=== PATIENT | female | born 1950 | race Caucasian/White ===

== ENCOUNTER 2021-10-03 19:49 | Inpatient (IN) | payer MEDICARE, MEDICAID, SELFPAY ==
[2021-10-03] VITALS (9 sets, daily range): BP systolic 136–168; BP diastolic 77–119; PULSE 90–106; RESP 18–22; TEMP 36.5–36.7; O2SAT 94–96; BMI 30.2
--- NOTE | 2021-10-03 19:54 | CTR_ITS ---
PROCEDURE INFORMATION: Exam: CT Head Without Contrast Exam date and time: 10/03/2021 8:38 PM Age: 71 years old Clinical indication: Injury or trauma; Blunt trauma (contusions or hematomas); Without loss of consciousness; Patient HX: HX of stroke C/O fall this am due to R sided weakness; Additional info: CVA TECHNIQUE: Imaging protocol: Computed tomography of the head without contrast. Radiation optimization: All CT scans at this facility use at least one of these dose optimization techniques: automated exposure control; mA and/or kV adjustment per patient size (includes targeted exams where dose is matched to clinical indication); or iterative reconstruction. COMPARISON: No relevant prior studies available. RADIATION DOSE METRICS: Total DLP (mGy-cm): 1640.32 FINDINGS: Brain: There are chronic lacunar infarcts in the klaus. Chronic appearing left RESTAURANT HOST distribution infarct. There is mild diffuse cerebral atrophy present, consistent with this patient's age. No evidence for large acute ischemic infarction. Please note acute ischemia can be occult by head CT. Cerebral ventricles: No ventriculomegaly. Paranasal sinuses: Visualized sinuses are unremarkable. No fluid levels. Mastoid air cells: Visualized mastoid air cells are well aerated. Vasculature: Calcified plaque is present within the carotid siphons. Bones/joints: Unremarkable. No acute fracture. Soft tissues: Unremarkable. CT/CT head wo con* [id number] IMPRESSION: There is a chronic appearing left RESTAURANT HOST distribution infarct.There are senescent changes of the brain as described above. No evidence for large acute ischemic infarction or acute intracranial injury.
--- NOTE | 2021-10-03 19:54 | XRR_ITS ---
PROCEDURE INFORMATION: Exam: XR Chest Exam date and time: 10/03/2021 7:29 PM Age: 71 years old Clinical indication: Injury or trauma; Fall; Other: Weakness; Blunt trauma (contusions or hematomas); Additional info: CVA. Weakness, fall due to RT leg and arm weakness and numbness TECHNIQUE: Imaging protocol: XR of the chest. Views: 1 view. COMPARISON: No relevant prior studies available. FINDINGS: Lungs: Unremarkable. No consolidation. Pleural spaces: Unremarkable. No pleural effusion. No pneumothorax. Heart/Mediastinum: Unremarkable. No cardiomegaly. Bones/joints: Unremarkable. XR/XR chest 1V portable [id number] IMPRESSION: No acute findings.
--- NOTE | 2021-10-03 19:55 | ECG_ITS ---
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 Measurements Intervals [place] Rate: 92 P: 59 MS: 162 QRS: 45 QRSD: 98 T: 39 QT: 376 QTc: 467 Interpretive Statements SINUS RHYTHM LEFT ATRIAL ENLARGEMENT [-0.15mV P-WAVE IN V1/V2] MODERATE ST DEPRESSION [0.05+ mV ST DEPRESSION] No previous ECG available for comparison Electronically Signed On 10-04-2021 17:26:33 CDT by Richard Shafer M.D. [id number]
--- NOTE | 2021-10-03 19:57 | W.ED.NEUROSD ---
HPI - Neuro Symptoms/Deficit General: Chief Complaint: Neuro Symptoms/Deficit Stated Complaint: fall Time Seen by Provider: 10/03/21 19:51 Source: patient and EMS Mode of arrival: EMS Limitations: no limitations History of Present Illness: 71-year-old female has a history of stroke last December. She states that she went to bed last night around 10 PM woke up this morning 6 AM and fell immediately because she had weakness on her right side. She states that she cannot move her right arm and is having difficulty lifting her right leg. States she had a very difficult time walking throughout the day and this concerned she may have had another stroke. She denies any pain anywhere denies any chest pain denies any dizziness denies any loss of vision. Associated symptoms: Deny chest pain, nausea or vomiting Review of Systems Const: Denies: fever(s), chills, body aches or change in appetite Eyes: Denies: blurry vision or eye discomfort ENMT: Denies: throat pain or dental pain Card: Denies: chest pain Resp: Denies: dyspnea GI: Denies: abdominal pain, nausea, vomiting or diarrhea : Denies: dysuria Musc: Denies: neck pain or back pain Skin/Breast: Denies: rash Neuro: Reports: weakness in extremities Psych: Denies: depression [place]/Lymph: Denies: easy bruising All/Imm: Denies: urticaria PFSH ED PFSH: Medical History (Updated 10/03/21 @ 21:36 by Waqar Lopez MD) CVA (cerebral vascular accident) Social History (Updated 10/03/21 @ 19:58 by Waqar Lopez MD) Substance/Drug Use: never NIH stroke score NIHSS: Level Of Consciousness - 1a: 0 Level Of Consciousness Questions - 1b: Both Correct Level Of Consciousness Commands - 1c: Both Correct Best Gaze - 2: Normal Visual Villar[place] - 3: No Visual Loss Facial Palsy - 4: Normal Motor Arm Right - 5: Effort Against [place] Motor Arm Left - 5: No Drift Motor Leg Right - 6: Effort Against [place] Motor Leg Left - 6: No Drift Limb Ataxia - 7: Absent Sensory - 8: Normal Best Language - 9: No Aphasia Dysarthia - 10: Normal Extinction And Inattention - 11: 0 Score: Total Score: 4 Physical Exam Const: COMMON NORMALS: no acute distress, patient oriented x3 and healthy appearing HENMT: COMMON NORMALS: normocephalic and atraumatic HEAD & SCALP: normocephalic and atraumatic Eye: COMMON NORMALS: Equal, round and reactive pupils present and EOMs intact bilaterally PUPIL: Yes Equal, round and reactive pupils present Neck/C-Spine: COMMON NORMALS: full ROM and supple Chest: COMMONS NORMALS: normal inspection of the chest and normal palpation of entire chest wall Resp: COMMON NORMALS: normal respiratory effort, No retractions, No use of accessory muscles and clear to auscultation bilaterally AUSCULTATION: clear to auscultation bilaterally Cardio: COMMON NORMALS: regular rate, regular rhythm and No murmurs present (Cardio) RATE: regular rate RHYTHM: regular rhythm GI: COMMON NORMALS: Normal to inspection, nondistended, normoactive bowel sounds present, Soft to palpation, non-tender and no masses PALPATION: Yes Soft to palpation Extremity: COMMON NORMALS: normal to inspection and full ROM Neuro: COMMON NORMALS: patient oriented x3 and moves all extremities OTHER: Weakness to right arm right leg Psych: COMMON NORMALS: mental status grossly normal, Normal thought process present and cooperative THOUGHT PROCESS: Normal thought process present Skin: COMMON NORMALS: no rashes or lesions noted and no wounds GENERAL SKIN EXAM: no rashes or lesions noted Course Vital Signs: Vital signs: Vital Signs Temperature 97.7 F 10/03/21 19:50 Pulse Rate 106 H 10/03/21 19:50 Respiratory Rate 20 H 10/03/21 19:50 Blood Pressure 168/100 10/03/21 19:50 Pulse Oximetry 94 10/03/21 19:50 MDM - Neuro Symptoms/Deficit Medical Decision Making Patient presents here with right arm weakness possible strokelike symptoms. [place] last known normal was roughly 24 hours ago she is not a TPA candidate CT showed no acute findings spoke to hospitalist will admit for observation at this time. Lab Data : 10/03/21 20:11 10/03/21 20:11 Radiology Impressions Chest X-Ray 10/03/21 19:54 IMPRESSION: No acute findings. 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 No evidence for large acute ischemic infarction or acute intracranial injury. Laboratory Results WBC 15.8 10^3/uL (4.0-10.0) H 10/03/21 20:11 RBC 6.72 10^6/uL (4.1-5.3) H 10/03/21 20:11 Hgb 18.7 g/dL (11.5-15.3) H 10/03/21 20:11 Hct 57.1 % (37.0-47.0) H 10/03/21 20:11 MCV 85.0 fl (81-99) 10/03/21 20:11 MCH 27.8 pg (28.0-34.0) L 10/03/21 20:11 MCHC 32.7 g/dL (30.0-36.0) 10/03/21 20:11 RDW 18.9 % (12.1-15.1) H 10/03/21 20:11 Plt Count 641 10^3/cmm (130-400) H 10/03/21 20:11 MPV 10.1 fL (7.4-10.4) 10/03/21 20:11 Neut % (Auto) 83.4 % 10/03/21 20:11 Lymph % (Auto) 9.4 % 10/03/21 20:11 [place] % (Auto) 4.4 % 10/03/21 20:11 Eos % (Auto) 1.2 % 10/03/21 20:11 Baso % (Auto) 0.8 % 10/03/21 20:11 Neut # (Auto) 13.20 10^3/uL (1.8-7.7) H 10/03/21 20:11 Lymph # (Auto) 1.5 10^3/uL (0.8-4.8) 10/03/21 20:11 [place] # (Auto) 0.7 10^3/uL (0.2-0.9) 10/03/21 20:11 Eos # (Auto) 0.2 10^3/uL (0.0-0.8) 10/03/21 20:11 Baso # (Auto) 0.1 10^3/uL (0.0-0.1) 10/03/21 20:11 Nucleated RBC % (auto) 0 % 10/03/21 20:11 Nucleated RBCs # 0.0 /100WBC 10/03/21 20:11 PT 13.70 SECONDS (12.1-14.9) 10/03/21 20:26 INR 1.01 (0.8-1.2) 10/03/21 20:26 Sodium 135 mmol/L (136-145) L 10/03/21 20:11 Potassium 4.1 mmol/L (3.5-5.1) 10/03/21 20:11 Chloride 99 mmol/L (98-107) 10/03/21 20:11 Carbon Dioxide 23 mmol/L (22-29) 10/03/21 20:11 Anion Gap 17.1 (5-19) 10/03/21 20:11 BUN 6 mg/dL (8-23) L 10/03/21 20:11 Creatinine 0.5 mg/dL (0.5-0.9) 10/03/21 20:11 GFR Calculation Not Reportable 10/03/21 20:11 Glucose 109 mg/dL (65-115) 10/03/21 20:11 POC Glucose 115 mg/dL (70-110) H 10/03/21 20:12 Calculated Osmolality 278 mOsm/kg (285-295) L 10/03/21 20:11 Calcium 9.5 mg/dL (8.5-10.5) 10/03/21 20:11 Total Bilirubin 0.5 mg/dL (0.15-1.2) 10/03/21 20:11 AST 25 U/L (0-32) 10/03/21 20:11 ALT 13 U/L (0-33) 10/03/21 20:11 Alkaline Phosphatase 125 IU/L (35-105) H 10/03/21 20:11 Total Protein 7.8 g/dL (6.6-8.7) 10/03/21 20:11 Albumin 4.4 g/dL (3.5-5.2) 10/03/21 20:11 Globulin 3.4 g/dL (1.3-4.6) 10/03/21 20:11 EKG Data EKG 1: I personally reviewed and interpreted this EKG as follows: EKG interpretation date: 10/03/21 EKG interpretation time: 19:58 Interpretation: Normal sinus rhythm heart rate [address] or T wave abnormalities QRS 98 QTC 46 Discharge Plan Discharge Patient Disposition: Admitted As Inpatient Clinical Impression: CVA (cerebral vascular accident) Coding Level of Care Code ED Pain Management Nurse Practitioner for Chg Fwd Exam Comprehensive
[2021-10-03 20:33] LABS: Basophils # 0.1 10^3/uL (0.0-0.1); Basophils % 0.8 %; Eosinophils # 0.2 10^3/uL (0.0-0.8); Eosinophils % 1.2 %; Hematocrit 57.1 % (37.0-47.0); Hemoglobin 18.7 g/dL (11.5-15.3); Lymphocytes # 1.5 10^3/uL (0.8-4.8); Lymphocytes % 9.4 %; Mean Corpuscular HGB Conc 32.7 g/dL (30.0-36.0); Mean Corpuscular Hemoglobin 27.8 pg (28.0-34.0); Mean Platelet Volume 10.1 fL (7.4-10.4); Monocytes # 0.7 10^3/uL (0.2-0.9); Monocytes % 4.4 %; Neutrophils % 83.4 %; Nucleated Red Blood Cells % 0 %; Platelet Count 641 10^3/cmm (130-400); Red Blood Count 6.72 10^6/uL (4.1-5.3); Red Cell Distribution Width 18.9 % (12.1-15.1); White Blood Count 15.8 10^3/uL (4.0-10.0)
[2021-10-03 20:43] LABS: Albumin Level 4.4 g/dL (3.5-5.2); Alkaline Phosphatase 125 IU/L (35-105); Blood Urea Nitrogen 6 mg/dL (8-23); Calcium 9.5 mg/dL (8.5-10.5); Carbon Dioxide 23 mmol/L (22-29); Chloride 99 mmol/L (98-107); Creatinine Clr Calc Pharmacy 57.0588; Globulin 3.4 g/dL (1.3-4.6); Glucose 109 mg/dL (65-115); Osmolality Calculated 278 mOsm/kg (285-295); Sodium 135 mmol/L (136-145); Total Bilirubin 0.5 mg/dL (0.15-1.2); Total Protein 7.8 g/dL (6.6-8.7)
[2021-10-03 20:49] LABS: INR 1.01 (0.8-1.2)
[2021-10-03 20:51] LABS: Alanine Aminotransferase 13 U/L (0-33); Anion Gap 17.1 (5-19); Aspartate Amino Transferase 25 U/L (0-32); Potassium 4.1 mmol/L (3.5-5.1)
[2021-10-03 20:52] LABS: Slide Review Slide Review Perform
[2021-10-03 20:58] LABS: Glucose Point of Care 115 mg/dL (70-110)
[2021-10-03 21:50] LABS: Add Urine Microscopic? NO; Charge for UA Resulting for Rev
[2021-10-03 21:54] LABS: Bilirubin Urine 1+ (Negative); Blood Urine Neg (Negative); Glucose Urine UA Norm (Normal); Ketones Urine Negative (Negative); Leukocyte Esterase Urine Negative (Negative); Nitrate Urine Negative (Negative); Protein Urine Neg (Negative); Specific Gravity, Urine 1.005 (1.005-1.030); Urine Appearance Clear (CLEAR); Urine Color Yellow (Yellow); Urobilinogen Urine Norm (Negative); pH Urine 7 (5-7)
--- NOTE | 2021-10-03 22:03 | PC.NURSE ---
Pt refused ASA stating she cannot take ASA. Dr Lopez updated
--- NOTE | 2021-10-03 23:11 | P.HP_ITS ---
Providers/Chief Complaint Admitting Physician: Hipolito Peres Chief Complaint: fall History of Present Illness 71-year-old lady who reports she has had a prior stroke in December for which she was assessed in [place] presented to ER with initial reports that she was having weakness in the right side resulting in a fall difficulty walking, with concern that she had another stroke she came to ER. When attempting to confirm this history, she is going back and forth somewhat, she appears to have at least moderate expressive aphasia, and asking the same question several times sometimes feels different answers. In ER also was reported to have somewhat inconsistent symptoms, with right-sided weakness, although did okay with getting up and back from the commode. She seems to state that she was calling her friend Jenae who then arranged for her to go to the hospital. She states yesterday she was moving some heavy furniture around. She denies any fall or injury. She feels that she already had some difficulty walking yesterday. She states that she uses rolling walker normally. She cannot definitively express what symptoms she may have had after the prior stroke in December. She states she does not take aspirin, she states that she cannot take large doses of aspirin, that she could take small dose, 81 mg. In ER she is also noted to have leukocytosis, tachycardia 102-106, currently down to 93. She is afebrile. Noted elevation of all 3 cell lines. Chest x-ray without acute findings. UA obtained, 1+ bilirubin, otherwise WNL. Head CT with chronic appearing left FABRIC AND ACCESSORIES ESTIMATOR distribution infarct, senescent changes. Review of Systems Const: Denies: fever(s), chills, body aches or malaise Eyes: Denies: change in vision or eye redness ENMT: Denies: throat pain, oral sores or ear or mastoid pain Card: Denies: chest pain, edema, pre-syncope or dyspnea on exertion Resp: Denies: dyspnea, productive cough, change in phlegm color or hemoptysis GI: Denies: abdominal pain, nausea, vomiting, diarrhea, constipation, hematochezia or melena : Denies: flank pain, urinary frequency or hematuria Musc: Denies: back pain, joint swelling or joint redness Skin/Breast: Denies: rash, sores or new lesions Neuro: Reports: weakness in extremities and difficulty communicating thoughts; Denies: headache(s), numbness in extremities, dizziness, confusion or seizure- like activity Endo: Denies: polyuria or polydipsia Cayetano/Lymph: Denies: easy bleeding or purpura All/Imm: Denies: urticaria, throat swelling or tongue swelling Medications/Allergies Allergies Allergy/AdvReac Type Severity Reaction Status Date / Time aspirin AdvReac Unknown Unknown Unverified 10/03/21 23:02 PFSH Acute PFSH: Medical History CVA (cerebral vascular accident) HTN (hypertension) Surgical History No pertinent past surgical history Family History Other No significant family history Social History Smoking and tobacco status: never smoked Alcohol intake: never Substance/Drug Use: never Lives independently: Yes Vitals/I&O/Wt Last Vital Signs Temp 97.7 F 10/03/21 19:50 Pulse 93 10/03/21 22:21 Resp 18 10/03/21 22:21 BP 150/83 10/03/21 22:21 Pulse Ox 96 10/03/21 22:21 Weight last 48 hrs Weight 72.575 kg Physical Exam Const: COMMON NORMALS: no acute distress and patient oriented x3 GENERAL APPEARANCE: disheveled HENMT: COMMON NORMALS: oropharynx normal Neck/C-Spine: COMMON NORMALS: no JVD Resp: COMMON NORMALS: normal respiratory effort and clear to auscultation bilaterally AUSCULTATION: clear to auscultation bilaterally OTHER: Mild upper respiratory wheeze/vocal cord dysfunction Cardio: COMMON NORMALS: no JVD, regular rhythm, S1 normal heart sound present, S2 normal heart sound present and No murmurs present (Cardio) RHYTHM: regular rhythm HEART SOUNDS: S1 normal heart sound present and S2 normal heart sound present GI: COMMON NORMALS: Normal to inspection, nondistended, normoactive bowel sounds present, Soft to palpation and non-tender PALPATION: Yes Soft to palpation Extremity: COMMON NORMALS: no joint enlargement and no pedal edema Neuro: COMMON NORMALS: patient oriented x3 and moves all extremities MENINGEAL SIGNS: Yes no meningeal signs COORDINATION/BALANCE: other (Cannot lift R arm for FNF, or R leg high enough for HTS) SPEECH: abnormal speech and receptive aphasia SENSORY EXAM: Yes Normal double simultaneous stimulation for sensation MOTOR EXAM: Abnormal motor strength present (2/5 R upper and lower. ) PLANTAR REFLEX: equivocal: bilateral OTHER: R side facial droop. Follows commands well. No difficulty tracking. Visual díaz full to confrontation. Skin: COMMON NORMALS: no rashes or lesions noted GENERAL SKIN EXAM: no rashes or lesions noted Data : 10/03/21 20:11 10/03/21 20:11 A&P Assessment and plan (1) CVA (cerebral vascular accident): Difficult to tell which symptoms are new, which are old. Reports she previously had a stroke in December and was seen for it in [place]. Denies needing TPA at that time. Sounds like she has not been taking aspirin or Plavix. With at least moderate aphasia currently, she is difficult time being able to provide history. Unclear what medications she takes. Initial reports cannot take aspirin, although then she does state that she may tolerate aspirin 81 mg. Treatment aphasia seems to be new as she seems to be surprised at difficulty expressing thoughts. Does seem like weakness is worse as well as she reported previously walking with a rolling walker. Appears likely to have had recurrence of CVA, possibly progression of prior CVA. Noted chronic FABRIC AND ACCESSORIES ESTIMATOR CVA on head CT. As she did not feel safe with aspirin, overall acid changer to Plavix. Statin. Permissive hypertension for now. Requesting MRI, MRA brain. Additional work-up with carotid Doppler, echocardiogram. A1c, lipid profile. ST, PT, OT. Less likely with leukocytosis, tachycardia, aphasia, possible herpes encephalitis. No sign of bacterial meningitis. Acyclovir for now. Consider lumbar puncture when IR or neurology is back. Status: Acute (2) Leukocytosis: Unclear cause. Again for now empirically on acyclovir as above. Otherwise no suggestion of pneumonia. No significant UTI. Denies any GI symptoms. No integumentary symptoms. No obvious source of infection. Monitor for changes in condition. Denies symptoms respiration. ST assessment. Status: Acute Plan Mild upper respiratory wheeze/vocal cord dysfunction: She states she may have history of asthma, but unclear that she uses any medications for it. Wheezing appears upper respiratory. Monitor for changes in symptoms. Consider referral for PFT assessment if has not had one. Attestations Medical Necessity Statement*: Admission of over 2 midnights we will continue aggressive management of second CVA. Coding Level of Care Code Acute Energy Management Specialist for Delia Goodson Diagnoses CVA (cerebral vascular accident) I63.9 Leukocytosis D72.829
[2021-10-03] MEDS: clopidogrel 75 mg Tablet PO (23:33)
[2021-10-03] MEDS: atorvastatin 40 mg Tablet PO (23:33)
[2021-10-03] MEDS: heparin 5,000 unit/mL INJ 1 mL 5000 UNIT SUBCUT (23:34)
[2021-10-03] MEDS: lactated ringers 1,000 ML 75 ML IV (23:34)
[2021-10-04] VITALS (19 sets, daily range): BP systolic 109–153; BP diastolic 49–95; PULSE 71–99; RESP 16–18; TEMP 36.4–36.8; O2SAT 91–96
[2021-10-04] MEDS: acyclovir 700 MG in sodium chloride 0.9% (100 ml) 100 ML 114 MG IV (01:58)
[2021-10-04 06:21] LABS: Basophils # 0.1 10^3/uL (0.0-0.1); Basophils % 0.5 %; Eosinophils # 0.3 10^3/uL (0.0-0.8); Eosinophils % 2.3 %; Hematocrit 51.5 % (37.0-47.0); Hemoglobin 16.6 g/dL (11.5-15.3); Lymphocytes # 1.2 10^3/uL (0.8-4.8); Mean Corpuscular HGB Conc 32.2 g/dL (30.0-36.0); Mean Corpuscular Hemoglobin 27.6 pg (28.0-34.0); Mean Corpuscular Volume 85.7 fl (81-99); Mean Platelet Volume 10.4 fL (7.4-10.4); Monocytes # 0.7 10^3/uL (0.2-0.9); Monocytes % 4.8 %; Neutrophils # 12.51 10^3/uL (1.8-7.7); Neutrophils % 83.7 %; Nucleated Red Blood Cells % 0 %; Platelet Count 655 10^3/cmm (130-400); Red Blood Count 6.01 10^6/uL (4.1-5.3); Red Cell Distribution Width 18.7 % (12.1-15.1); White Blood Count 14.9 10^3/uL (4.0-10.0)
[2021-10-04 06:31] LABS: Alanine Aminotransferase 10 U/L (0-33); Albumin Level 3.8 g/dL (3.5-5.2); Alkaline Phosphatase 106 IU/L (35-105); Aspartate Amino Transferase 18 U/L (0-32); Blood Urea Nitrogen 5 mg/dL (8-23); Calcium 8.9 mg/dL (8.5-10.5); Carbon Dioxide 23 mmol/L (22-29); Chloride 102 mmol/L (98-107); Chol HDL Ratio 2.43 mg/dL (0.0-4.40); Cholesterol 131 mg/dL (0-200); Creatinine Clr Calc Pharmacy 57.0588; Globulin 2.7 g/dL (1.3-4.6); Glucose 107 mg/dL (65-115); HDL Cholesterol 54 mg/dL (60-100); LDL Cholesterol Calculated 64 mg/dL (50-129); LDL HDL Ratio 1.19 RATIO (0.00-3.22); Osmolality Calculated 274 mOsm/kg (285-295); Sodium 133 mmol/L (136-145); Total Bilirubin 0.4 mg/dL (0.15-1.2); Total Protein 6.5 g/dL (6.6-8.7); Triglycerides 63 mg/dL (0-150)
[2021-10-04] MEDS: heparin 5,000 unit/mL INJ 1 mL 5000 UNIT SUBCUT ×3 (06:40→23:05)
[2021-10-04 06:46] LABS: Estmated Average Glucose 114; Hemoglobin A1C 5.6 % (4.0-6.0)
[2021-10-04 06:48] LABS: Anion Gap 12.4 (5-19); Potassium 4.4 mmol/L (3.5-5.1)
[2021-10-04] MEDS: clopidogrel 75 mg Tablet PO (08:32)
[2021-10-04] MEDS: acyclovir 700 MG in sodium chloride 0.9% (100 ml) 100 ML 100 MG IV ×2 (09:34→18:15)
--- NOTE | 2021-10-04 14:07 | P.PN_ITS ---
Subjective Subjective: Doing better. Does not feel as weak on rt side. 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 Possibly from stress vs CVA Status: Acute (2) CVA (cerebral vascular accident): W/ c/o rt sided weakness and difficulty in walking CVA will need to be r/o still ECHO was basically normal Status: Acute (3) Hypertension after donor nephrectomy requiring medication: stable Status: Acute Plan MRI Brain pending D/C home if OK On Asa DVT Prophylaxis Lovemox Attestations Medical Necessity Statement*: Pt w/ h/o HTN, CVA coming w/ new rt sided wea kness and difficulty in walking CVA is being r/o. Will need continued hospitalization for further w/u Time Spent in Patient Care: 40 min Coding Level of Care Code Acute Wellness Manager for Chg Fwd Diagnoses Leukocytosis D72.829 CVA (cerebral vascular accident) I63.9 Hypertension after donor nephrectomy requiring medication I97.3; Z90.5
[2021-10-04] MEDS: atorvastatin 40 mg Tablet PO (21:14)
--- NOTE | 2021-10-04 23:13 | USCV_ITS ---
Carol Dolan Age: 71 Gender: F : 1950 Exam Date: 10/04/2021 06:40 Ordering Phys: Hipolito Peres MD Technologist: Isela Fermin Exam Location: [facility] – [place] Indication: CVA BP: 135 / 82 HR: 84 Rhythm: Sinus Technical Quality: Adequate MEASUREMENTS (Male / Female) Normal Values 2D ECHO LV Diastolic Diameter PLAX 4.6 cm 4.2 - 5.9 / 3.9 - 5.3 cm LV Systolic Diameter PLAX 3.1 cm LV Chamber Size 3.5 cm IVS Diastolic Thickness 1.1 cm 0.6 - 1.0 / 0.6 - 0.9 cm IVS Systolic Thickness 1.6 cm LVPW Diastolic Thickness 1.2 cm 0.6 - 1.0 / 0.6 - 0.9 cm LVPW Systolic Thickness 1.9 cm RV Chamber Size 2.8 cm LVOT Diameter 2.1 cm LV Ejection Fraction 2D Teich 60.4 % LV Ejection Fraction MOD 2C 65.7 % LV Ejection Fraction 2C AL 65.3 % LA Diameter 3.7 cm LA Width 3.4 cm LA Height 5.0 cm RA Width 4.1 cm RA Height 4.1 cm Aorta at Sinotubular Diameter 2.8 cm M-MODE Aortic Annulus Diameter 3.0 cm LA Ao Ratio MM 1.4 MV E Point Septal Separation 0.5 cm DOPPLER AV Peak Velocity 132.0 cm/s LVOT Peak Velocity 84.0 cm/s AV Area Cont Eq vti 2.1 cm squared AV Area Cont Eq pk 2.1 cm squared MV Area PHT 3.3 cm squared MV E' Velocity 45.5 cm/s Mitral E to MV E' Ratio 7.2 Mitral E to LV E' Lateral Ratio 6.5 Mitral E to LV E' Septal Ratio 8.0 TR Peak Velocity 157.8 cm/s TR Peak Gradient 10.0 mmHg TR Mean Velocity 103.8 cm/s TR Mean Gradient 5.2 mmHg TR Velocity Time Integral 38.5 cm TV Peak E Velocity 71.0 cm/s Right Atrial Pressure 3.0 mmHg Pulmonary Artery Systolic Pressu 13.0 mmHg PV Peak Velocity 58.0 cm/s RV Acceleration Time 0.1 s RV Ejection Time 0.3 s RV AcT/ET 0.4 FINDINGS Left Ventricle Normal left ventricular size and systolic function, EF 59 %. No regional wall motion abnormalities. Right Ventricle The right ventricle is normal in size and function. Right Atrium The right atrium is normal in size. Left Atrium Mildly increased left atrial size. Mitral Valve Thickened mitral valve. Mild mitral annular calcification. Aortic Valve No gross abnormalities noted Tricuspid Valve Trace to mild tricuspid valve regurgitation. Pulmonic Valve Pulmonic valve not well visualized. Pericardium Normal pericardium without effusion. Aorta Normal ascending aorta dimension. CONCLUSIONS Normal left ventricular size and systolic function, EF 59 %. No regional wall motion abnormalities. Thickened mitral valve. Mild mitral annular calcification. Mildly increased left atrial size. Trace to mild tricuspid valve regurgitation. Estimated pulmonary artery pressure is within normal limits There is no pericardial effusion. There are no intracardiac masses. No previous study is available for comparison. Dr Richard Shafer MD [facility] (Electronically Signed) Final Date: 04 October 2021 10:42 S
--- NOTE | 2021-10-04 23:13 | USCV_ITS ---
Carol Dolan Age: 71 Gender: F : 1950 Exam Date: 10/04/2021 06:56 Ordering Phys: Hipolito Peres MD Technologist: Isela Fermin Exam Location: [facility] – [place] Indication: CVA Risk Factors: Smoker Previous Vascular Surgery: NONE Right Brachial BP: / Left Brachial BP: / Right Left Velocity (cm/s) Spectral Plaque Velocity (cm/s) Spectral Plaque Syst/Diast Broadening Syst/Diast Broadening 86.00/ 20.35 Prox CCA 119.60/ 38.10 79.40/ 23.20 Mid CCA 120.90/ 18.40 108.10/23.20 Hetro Distal CCA 109.10/ 27.60 Hetro 52.80/ 12.40 Prox ICA 82.00 / 29.90 57.50/ 10.90 Mid ICA 90.60 / 31.60 55.90/ 17.90 Distal ICA 106.00/ 43.60 105.80 ECA 233.20 0.72 ICA/CCA 0.88 Antegrade Vertebral Antegrade 40.40/ 10.10 cm/s 45.30/ 14.50 cm/s Bi Subclavian Tri 139.3 161.6 0 0 FINDINGS Minimal plaques at the right bifurcation and proximal internal carotid artery Mild to moderate heterogeneous plaques at the left bifurcation and proximal internal carotid artery Antegrade flow in the vertebral arteries bilaterally Elevated velocity in the left external carotid artery Normal Doppler flow velocities in the vertebral and subclavian arteries bilaterally CONCLUSIONS Mild to moderate heterogeneous plaques at the left bifurcation and proximal internal carotid artery, suggesting less than 50% stenosis. Minimal plaques at the right bifurcation and proximal internal carotid artery Elevated velocity in the left external carotid artery suggestive of hemodynamically significant stenosis. No significant stenosis in the vertebral and subclavian arteries, based on the above findings No previous studies are available for comparison. Dr Richard Shafer MD [facility] (Electronically Signed) Final Date: 04 October 2021 17:06 S
[2021-10-05] VITALS (7 sets, daily range): BP systolic 118–158; BP diastolic 71–85; PULSE 86–93; RESP 16–18; TEMP 36.3–36.8; O2SAT 93–94
[2021-10-05] MEDS: acyclovir 700 MG in sodium chloride 0.9% (100 ml) 100 ML 114 MG IV (01:40)
[2021-10-05 05:07] LABS: Basophils # 0.1 10^3/uL (0.0-0.1); Basophils % 0.6 %; Eosinophils # 0.6 10^3/uL (0.0-0.8); Eosinophils % 4.7 %; Hematocrit 51.1 % (37.0-47.0); Hemoglobin 16.3 g/dL (11.5-15.3); Lymphocytes # 1.7 10^3/uL (0.8-4.8); Lymphocytes % 12.2 %; Mean Corpuscular HGB Conc 31.9 g/dL (30.0-36.0); Mean Corpuscular Hemoglobin 27.9 pg (28.0-34.0); Mean Corpuscular Volume 87.5 fl (81-99); Mean Platelet Volume 9.9 fL (7.4-10.4); Monocytes # 0.8 10^3/uL (0.2-0.9); Monocytes % 5.7 %; Neutrophils # 10.32 10^3/uL (1.8-7.7); Neutrophils % 76.1 %; Nucleated Red Blood Cells % 0 %; Platelet Count 546 10^3/cmm (130-400); Red Blood Count 5.84 10^6/uL (4.1-5.3); Red Cell Distribution Width 18.8 % (12.1-15.1); White Blood Count 13.6 10^3/uL (4.0-10.0)
[2021-10-05 05:27] LABS: Alanine Aminotransferase 10 U/L (0-33); Albumin Level 3.5 g/dL (3.5-5.2); Alkaline Phosphatase 83 IU/L (35-105); Anion Gap 10.7 (5-19); Aspartate Amino Transferase 13 U/L (0-32); Blood Urea Nitrogen 6 mg/dL (8-23); Calcium 8.8 mg/dL (8.5-10.5); Carbon Dioxide 21 mmol/L (22-29); Chloride 103 mmol/L (98-107); Creatinine Clr Calc Pharmacy 57.0588; Globulin 2.3 g/dL (1.3-4.6); Glucose 96 mg/dL (65-115); Osmolality Calculated 269 mOsm/kg (285-295); Potassium 3.7 mmol/L (3.5-5.1); Sodium 131 mmol/L (136-145); Total Bilirubin 0.4 mg/dL (0.15-1.2); Total Protein 5.8 g/dL (6.6-8.7)
[2021-10-05] MEDS: heparin 5,000 unit/mL INJ 1 mL 5000 UNIT SUBCUT (06:31)
--- NOTE | 2021-10-05 08:52 | PC.NURSE ---
Dr. Ashley came in room and stated not to give Acylovir
[2021-10-05] MEDS: clopidogrel 75 mg Tablet PO (08:53)
--- NOTE | 2021-10-05 10:13 | PM.DCS ---
Discharge Providers Date of Admission: 10/03/21 21:34 Date of Discharge: October 05, 2021 Attending Provider at Admission: Hipolito Peres Attending Provider at Discharge: Ashleigh Ashley MD Diagnoses at Discharge Discharge Diagnosis (1) Leukocytosis: Status: Acute (2) CVA (cerebral vascular accident): Status: Acute (3) Hypertension after donor nephrectomy requiring medication: Status: Acute Reason for Visit Reason for Visit: fall Hospital Course Hospital Course This is admitting note by Dr. Peres 71-year-old lady who reports she has had a prior stroke in December for which she was assessed in [place] presented to ER with initial reports that she was having weakness in the right side resulting in a fall difficulty walking, with concern that she had another stroke she came to ER.? When attempting to confirm this history, she is going back and forth somewhat, she appears to have at least moderate expressive aphasia, and asking the same question several times sometimes feels different answers.? In ER also was reported to have somewhat inconsistent symptoms, with right-sided weakness, although did okay with getting up and back from the commode.? She seems to state that she was calling her friend Jenae who then arranged for her to go to the hospital.? She states yesterday she was moving some heavy furniture around.? She denies any fall or injury.? She feels that she already had some difficulty walking yesterday.? She states that she uses rolling walker normally.? She cannot definitively express what symptoms she may have had after the prior stroke in December.? She states she does not take aspirin, she states that she cannot take large doses of aspirin, that she could take small dose, 81 mg. In ER she is also noted to have leukocytosis, tachycardia 102-106, currently down to 93.? She is afebrile.? Noted elevation of all 3 cell lines. Chest x-ray without acute findings.? UA obtained, 1+ bilirubin, otherwise WNL.? Head CT with chronic appearing left EDUCATIONAL ADVISOR distribution infarct, senescent changes. Hospital course Patient was admitted for management evaluation of right-sided weakness/TIA, her echo showed EF 59% without any wall motion abnormality, her rhythm remains sinus, no active chest pain, patient was able to ambulate without any assistance, she does have a walker at home, MRI was ordered however patient is eager to go home, I will give her a prescription to get MRI done outpatient, at the time of my evaluation NIH is 0 she is awake and alert, normal hemodynamics Other than hypertension, CBC does show leukocytosis, thrombocytosis and polycythemia, given referral to see Dr. John. On my clinical evaluation she did look dehydrated. Hemoglobin A1c 5.6, carotid Doppler without significant stenosis less than 50% stenosis detected. I have discharged her on atorvastatin, aspirin, Plavix and to antihypertensive regimen amlodipine and lisinopril Physical Exam Narrative: Patient was sitting in a chair NIH 0 Awake and alert Nonfocal neuro exam S1, S2 Looks slightly dehydrated Abdomen is soft Nonfocal neuro exam EOMI, PERRLA Nurse at the bedside Saturating well on room air Discharge Data Studies Completed and Pending Completed Studies During Hospitalization Category Date Time Status CT head wo con* [id number] Urgent Cat Scan 10/03/21 19:54 Completed XR chest 1V portable [id number] Urgent Exams 10/03/21 19:54 Completed CV carotid duplex BI* [id number] Routine Ultrasound 10/04/21 23:13 Completed CV. echo complete* [id number] Routine Ultrasound 10/04/21 23:13 Completed Pending at discharge Category Date Time Status Blood Culture Stat Lab 10/03/21 23:41 Results Complete Blood Count w/Auto AM LABS Lab 10/06/21 04:00 Ordered Comprehensive Metabolic Panel AM LABS Lab 10/06/21 04:00 Ordered MR angio head wo con [id number] Routine MRI 10/05/21 10:30 Ordered MR head wo/w con [id number] Routine MRI 10/05/21 10:30 Ordered Radiology Impressions Chest X-Ray 10/03/21 19:54 IMPRESSION: No acute findings. Head CT 10/03/21 19:54 IMPRESSION: There is a chronic appearing left EDUCATIONAL ADVISOR distribution infarct.There are senescent changes of the brain as described above. No evidence for large acute ischemic infarction or acute intracranial injury. Laboratory Results WBC 13.6 10^3/uL (4.0-10.0) H 10/05/21 04:52 RBC 5.84 10^6/uL (4.1-5.3) H 10/05/21 04:52 Hgb 16.3 g/dL (11.5-15.3) H 10/05/21 04:52 Hct 51.1 % (37.0-47.0) H 10/05/21 04:52 MCV 87.5 fl (81-99) 10/05/21 04:52 MCH 27.9 pg (28.0-34.0) L 10/05/21 04:52 MCHC 31.9 g/dL (30.0-36.0) 10/05/21 04:52 RDW 18.8 % (12.1-15.1) H 10/05/21 04:52 Plt Count 546 10^3/cmm (130-400) H 10/05/21 04:52 MPV 9.9 fL (7.4-10.4) 10/05/21 04:52 Neut % (Auto) 76.1 % 10/05/21 04:52 Lymph % (Auto) 12.2 % 10/05/21 04:52 [place] % (Auto) 5.7 % 10/05/21 04:52 Eos % (Auto) 4.7 % 10/05/21 04:52 Baso % (Auto) 0.6 % 10/05/21 04:52 Neut # (Auto) 10.32 10^3/uL (1.8-7.7) H 10/05/21 04:52 Lymph # (Auto) 1.7 10^3/uL (0.8-4.8) 10/05/21 04:52 [place] # (Auto) 0.8 10^3/uL (0.2-0.9) 10/05/21 04:52 Eos # (Auto) 0.6 10^3/uL (0.0-0.8) 10/05/21 04:52 Baso # (Auto) 0.1 10^3/uL (0.0-0.1) 10/05/21 04:52 Nucleated RBC % (auto) 0 % 10/05/21 04:52 Nucleated RBCs # 0.0 /100WBC 10/05/21 04:52 PT 13.70 SECONDS (12.1-14.9) 10/03/21 20:26 INR 1.01 (0.8-1.2) 10/03/21 20:26 Sodium 131 mmol/L (136-145) L 10/05/21 04:52 Potassium 3.7 mmol/L (3.5-5.1) 10/05/21 04:52 Chloride 103 mmol/L (98-107) 10/05/21 04:52 Carbon Dioxide 21 mmol/L (22-29) L 10/05/21 04:52 Anion Gap 10.7 (5-19) 10/05/21 04:52 BUN 6 mg/dL (8-23) L 10/05/21 04:52 Creatinine 0.5 mg/dL (0.5-0.9) 10/05/21 04:52 GFR Calculation Not Reportable 10/05/21 04:52 Glucose 96 mg/dL (65-115) 10/05/21 04:52 POC Glucose 115 mg/dL (70-110) H 10/03/21 20:12 Estimat Average Glucose 114 10/04/21 05:29 Hemoglobin A1c 5.6 % (4.0-6.0) 10/04/21 05:29 Calculated Osmolality 269 mOsm/kg (285-295) L 10/05/21 04:52 Calcium 8.8 mg/dL (8.5-10.5) 10/05/21 04:52 Total Bilirubin 0.4 mg/dL (0.15-1.2) 10/05/21 04:52 AST 13 U/L (0-32) 10/05/21 04:52 ALT 10 U/L (0-33) 10/05/21 04:52 Alkaline Phosphatase 83 IU/L (35-105) 10/05/21 04:52 Total Protein 5.8 g/dL (6.6-8.7) L 10/05/21 04:52 Albumin 3.5 g/dL (3.5-5.2) 10/05/21 04:52 Globulin 2.3 g/dL (1.3-4.6) 10/05/21 04:52 Triglycerides 63 mg/dL (0-150) 10/04/21 05:29 Cholesterol 131 mg/dL (0-200) 10/04/21 05:29 LDL Cholesterol, Calc 64 mg/dL (50-129) 10/04/21 05:29 HDL Cholesterol 54 mg/dL (60-100) L 10/04/21 05:29 LDL/HDL Ratio 1.19 RATIO (0.00-3.22) 10/04/21 05:29 Cholesterol/HDL Ratio 2.43 mg/dL (0.0-4.40) 10/04/21 05:29 Urine Color Yellow (Yellow) 10/03/21 21:35 Urine Appearance Clear (CLEAR) 10/03/21 21:35 Urine pH 7 (5-7) 10/03/21 21:35 Ur Specific [place] 1.005 (1.005-1.030) 10/03/21 21:35 Urine Protein Neg (Negative) 10/03/21 21:35 Urine Glucose (UA) Norm (Normal) 10/03/21 21:35 Urine Ketones Negative (Negative) 10/03/21 21:35 Urine Blood Neg (Negative) 10/03/21 21:35 Urine Nitrate Negative (Negative) 10/03/21 21:35 Urine Bilirubin 1+ (Negative) H 10/03/21 21:35 Urine Urobilinogen Norm mg/dL (Negative) 10/03/21 21:35 Ur Leukocyte Esterase Negative (Negative) 10/03/21 21:35 Vitals Last Vital Signs Temp 97.4 F L 10/05/21 08:12 Pulse 89 10/05/21 08:12 Resp 16 10/05/21 08:12 BP 158/85 10/05/21 08:12 Pulse Ox 94 10/05/21 08:12 Discharge Plan Discharge Patient Disposition: Home Condition: Stable Prescriptions: New clopidogrel 75 mg Tablet 75 mg PO DAILY Qty: 20 0RF Aspirin Low Dose 81 mg tablet,delayed release (DR/EC) 81 mg PO DAILY Qty: 90 4RF amlodipine 5 mg tablet 5 mg PO DAILY Qty: 30 3RF lisinopril 10 mg tablet 5 mg PO DAILY Qty: 30 2RF Continued albuterol sulfate 90 mcg/actuation HFA aerosol inhaler 1 puff INHALATION QID PRN (Reason: Shortness Of Breath) 0RF fluticasone propionate 50 mcg/actuation spray,suspension 1 spray INTRANASAL BID PRN (Reason: Nasal Congestion) 0RF atorvastatin 40 mg tablet 40 mg PO DAILY Qty: 60 3RF Discontinued etodolac 400 mg tablet 400 mg PO BID 0RF Discharge Orders: Discharge Order (Routine); Ordered 10/05/21 Ordered By: Ashleigh Ashley Other Ambulatory Orders: Complete Blood Count w/Auto (Routine) Timeframe: 4 Days Location: Determined by Patient Ordered By: Ashleigh Ashley MR head wo con RTP [id number] (Routine) Timeframe: 4 Days Facility: [facility] - Location: Rad[facility] Ordered By: Ashleigh Ashley Referrals: Jhony John MD [Staff Physician] - 2 weeks (Polycythemia, leukocytosis and thrombocytosis DR JOHN WILL CALL WITH APPOINTMENT, ) Discharge Diet: Cardiac and Low Salt Discharge Activity: Increase activity as tolerated Patient Instructions: Lisinopril (By mouth), Aspirin (By mouth), Amlodipine (By mouth), Clopidogrel (By mouth), Ischemic Stroke (DC), Leukocytosis (DC), Hypertension (DC), Opioid Safety Discharge Attestations Time Spent in Discharge Care*: less than 30 min Quality Metrics Clinical Quality Measures [ No reported AMI, CVA or VTE this stay] Coding Level of Care Code Acute Chg FW DC note Diagnoses Leukocytosis D72.829 CVA (cerebral vascular accident) I63.9 Hypertension after donor nephrectomy requiring medication I97.3; Z90.5
--- NOTE | 2021-10-05 11:04 | PC.NURSE ---
Discussed discharge paperwork with patient. Discussed the MRI, follow up appointment and follow up complete blood count. Patient verbalized understanding.
== END 2021-10-05 11:45 | disposition home or self-care (01) | DRG 65 ==
LOC: ER 22:02 → MEDSURG 22:20
PROVIDERS: Admitting Provider Internal Medicine; Emergency Provider Emergency Medicine; Visit Provider Internal Medicine
DX: I63.532 Cerebral infarction due to unspecified occlusion or stenosis of left posterior cerebral artery (principal); G81.91 Hemiplegia, unspecified affecting right dominant side; R47.01 Aphasia; R29.704 NIHSS score 4; Z90.5 Acquired absence of kidney; I97.3 Postprocedural hypertension; Z86.73 Personal history of transient ischemic attack (TIA), and cerebral infarction without residual deficits; D75.839 Thrombocytosis, unspecified; D75.1 Secondary polycythemia; E86.0 Dehydration
CPT/HCPCS: 36415; 36416; 70450; 71045; 80053; 80061; 81003; 82962; 83036; 85025; 85610; 87040; 92523; 92610; 93005; 93306; 93880; 96372; 97116; 97161; 97165; 97530; 99285; A9281; J0133; J1644

== ENCOUNTER 2021-11-02 13:59 | Outpatient (CLI) | payer OTHER, MEDICAID, SELFPAY ==
[2021-11-02 15:26] LABS: Basophils # 0.2 10^3/uL (0.0-0.1); Basophils % 0.9 %; Eosinophils # 0.4 10^3/uL (0.0-0.8); Eosinophils % 2.6 %; Hematocrit 55.4 % (37.0-47.0); Hemoglobin 18.4 g/dL (11.5-15.3); Mean Corpuscular HGB Conc 33.2 g/dL (30.0-36.0); Mean Corpuscular Hemoglobin 27.7 pg (28.0-34.0); Mean Corpuscular Volume 83.3 fl (81-99); Mean Platelet Volume 9.1 fL (7.4-10.4); Monocytes # 0.9 10^3/uL (0.2-0.9); Monocytes % 5.4 %; Neutrophils # 12.91 10^3/uL (1.8-7.7); Neutrophils % 78.3 %; Nucleated Red Blood Cells % 0 %; Platelet Count 809 10^3/cmm (130-400); Red Blood Count 6.65 10^6/uL (4.1-5.3); Red Cell Distribution Width 19.3 % (12.1-15.1); White Blood Count 16.5 10^3/uL (4.0-10.0)
--- NOTE | 2021-11-02 18:47 | ONC CON_ITS ---
Dr. Oh New Patient Note Patient: Carol Dolan Unit #: [id number]: [id number] Dicatated By: Jhony Oh M.D.Date of Visit: Nov 02, 2021 Onc MED New Patient/Consult Referring Physician: JENNIFER GOEL History of Present Illness: Mrs. Carol Dolan, is a 71-year-old female with history of CVA diagnosed in December 2020, went to [facility] ER on October 03, 2021 with progressive right-sided weakness and episode of fall in that morning, and in ER she underwent CT scan of the head on October 03, 2021 showed chronic appearing left DIRECTOR OF SAFETY AND SECURITY distribution infarct no evidence for large acute ischemic infarct or intracranial injury. Patient was treated symptomatically and her lab work-up done in ER on October 03, 2021 showed white blood count 15.8 hemoglobin 18.7 g hematocrit 57.1 platelets 641,000 with normal BMP Patient denies any history of elevated blood counts, denies any history of leukemia in the family patient denies any recurrent infections, night sweats, weight loss, denies any abdominal fullness or peripheral lymphadenopathy, denies any recurrent fever. Patient is a chronic smoker, has been smoking since teenage and smoke about a pack a day. And when under stress, smoke even more. Denies alcohol use Denies any chest pain or heaviness, denies any headaches blurred vision or double vision, denies any dysuria or sinus related symptoms, denies any new focal weakness except chronic right-sided weakness Past Medical History: Ms. Dolan's medical history consists of hypertension and stroke. Past Surgical History: Ms. Dolan's surgical history is unremarkable. Medications: Albuterol Sulfate 1 Inhalation (of 108 (90 base) mcg/act) Aerosol Powder, Breath Activated Inhalation q 4 hours PRN, amLODIPine Besylate 1 Tablet (of 5 mg) Oral daily, Aspirin 81 1 Tablet (of 81 mg) Tablet, enteric coated Oral daily, Atorvastatin Calcium 1 Tablet (of 40 mg) Oral daily, Clopidogrel Bisulfate 1 Tablet (of 75 mg) Oral daily, Cyclobenzaprine HCl 1 Tablet (of 10 mg) Oral t.i.d. PRN, Daily Multiple Vitamins 1 Tablet Oral daily, Flonase (50 mcg/act) Suspension Nasal Take as Directed, Lisinopril 1 Tablet (of 5 mg) Oral daily Allergies: Antihistamine & Nasal Deconges, marijuana , and Penicillin V Potassium. Social History: Ms. Dolan is . She is a daily smoker. She has no history of drinking. Family History: There is no documented family history. Review Of Symptoms: Review of Systems is not available for this patient. Vital Signs: Performed on Nov 02, 2021 15:25: 10, 10, 31.97 (HIGH), 1.76 sq.m, 61 in, 95 % (LOW), 116 /min (HIGH), 18 /min, 122/74 mm(hg), 98.8 F, and 169.2 lbs (HIGH). Performance Status: 2 - Ambulatory/capable of all self-care, unable to perform any work activities. Up and about more than 50% of waking hours. (ECOG) Physical Examination: ENMT - No mouth sores, no thrush, no jaundice, Respiratory - Poor air entry, mild wheezing, Cardiovascular - Regular rate and rhythm of heart, Abdomen - Soft, bowel sounds present, Extremities - No visible edema. Lab/Imaging: Most recent lab results are not available for this patient. Impression: Polycythemia, probably secondary to chronic smoking and may have underlying sleep apnea or primary bone marrow disorder like polycythemia vera but less likely Thrombocytosis, could be due to underlying myelo proliferative disorder or acute inflammation Leukocytosis, probably multifactorial including due to chronic smoking or smoking-related complication like chronic sinusitis/bronchitis or stress induced or subacute inflammation/infection lab work-up done on October 03, 2021 showed white blood count 15.8 hemoglobin 18.7 hematocrit 57.1 platelets 641,000, repeat CBC done on October 05, 2021 showed white blood count 13.6 hemoglobin 16.3 hematocrit 51.1 platelets 546,000 with normal CMP History of CVA causing right-sided weakness CT scan of head done on October 03, 2021 showed chronic appearing left DIRECTOR OF SAFETY AND SECURITY distribution infarct, no acute changes Plan: Discussed with patient regarding her labs white blood count 16.5 hemoglobin 18.4 hematocrit 55.4 platelets 809,000 neutrophil count 12,900 Clinically, patient is doing reasonably well with no acute signs symptoms or follow-up lab work-up done today showed persistent leukocytosis with left shift, polycythemia probably secondary to chronic smoking and untreated underlying sleep apnea and thrombocytosis could be part of underlying myeloproliferative disorder. At this point, as patient has history of CVA, we will recommend her phlebotomy to keep her hematocrit below 50 unless further testing with JAK2 mutation confirm polycythemia vera in that case we will keep her hematocrit less than 42 We will, check JAK2 mutation, PCR for BCR ABL, MPN panel, whole blood flow cytometry, ultrasound abdomen to check spleen size, and patient was advised to quit smoking and was offered any assistance she may need. We will also recommend PMD to consider sleep study to rule out underlying sleep apnea. Patient was advised about them but she is refusing, knowing the risk versus benefits. Patient said she might come back tomorrow morning, patient was advised that with history of CVA, is not safe to keep hematocrit above 50 and above 42 if polycythemia vera confirmed, patient expressed understanding but refused phlebotomy, knowing the risk versus benefits. Patient was advised to maintain hydration and continue to take aspirin and then we will see her back in 2 weeks if, as patient promised come back tomorrow for phlebotomy then will consider phlebotomy every week to keep hematocrit less than 50 assuming she has secondary polycythemia due to untreated sleep apnea and chronic smoking. Signed By: Jhony Oh M.D. <<Signature on File>>
[2021-11-04 14:56] LABS: Leukemia Profile (BBPL) See Report
[2021-11-06 22:57] LABS: P190 BCR ALB1 NOT DETECTED; P210 BCR ALB1 NOT DETECTED; Prior Results NG; Source blood
[2021-11-14 18:36] LABS: JAK2 V617 Block Specimen ID NG; JAK2 V617 Clinical Indication NG; JAK2 V617 Mutation DETECTED (NOT DETECTED); JAK2 V617 Specimen Source NG
== END 2021-11-02 14:00 | disposition home or self-care (01) ==
LOC: ONCMED 14:08
PROVIDERS: PCP Nurse Practitioner Family; Visit Provider Internal Medicine Hematology & Oncology
DX: D75.1 Secondary polycythemia (principal); D75.839 Thrombocytosis, unspecified; D72.829 Elevated white blood cell count, unspecified; I10 Essential (primary) hypertension; F17.200 Nicotine dependence, unspecified, uncomplicated; Z79.899 Other long term (current) drug therapy; Z86.73 Personal history of transient ischemic attack (TIA), and cerebral infarction without residual deficits
CPT/HCPCS: 36415; 81206; 81270; 81450; 85025; 88184; 88185; 99205

== ENCOUNTER 2021-11-18 12:21 | Oncology outpatient (recurring) (ONCR) | payer OTHER, MEDICAID, SELFPAY ==
[2021-11-18 13:26] LABS: Basophils # 0.1 10^3/uL (0.0-0.1); Basophils % 0.8 %; Eosinophils # 0.4 10^3/uL (0.0-0.8); Eosinophils % 2.2 %; Hematocrit 56.2 % (37.0-47.0); Hemoglobin 18.3 g/dL (11.5-15.3); Lymphocytes # 2.1 10^3/uL (0.8-4.8); Lymphocytes % 12.9 %; Mean Corpuscular HGB Conc 32.6 g/dL (30.0-36.0); Mean Corpuscular Volume 82.8 fl (81-99); Mean Platelet Volume 9.5 fL (7.4-10.4); Monocytes # 1.1 10^3/uL (0.2-0.9); Monocytes % 6.8 %; Neutrophils % 76.6 %; Nucleated Red Blood Cells % 0 %; Platelet Count 871 10^3/cmm (130-400); Red Blood Count 6.79 10^6/uL (4.1-5.3); Red Cell Distribution Width 19.9 % (12.1-15.1); White Blood Count 16.6 10^3/uL (4.0-10.0)
[2021-11-18 15:22] VITALS: BP 94/61; PULSE 94; RESP 16; TEMP 36.5; O2SAT 97
== END 2021-11-18 23:59 | disposition home or self-care (01) ==
PROVIDERS: PCP Nurse Practitioner Family; Visit Provider Internal Medicine Hematology & Oncology
DX: D45 Polycythemia vera (principal); J44.9 Chronic obstructive pulmonary disease, unspecified; Z99.81 Dependence on supplemental oxygen; F17.210 Nicotine dependence, cigarettes, uncomplicated; Z79.82 Long term (current) use of aspirin; D47.3 Essential (hemorrhagic) thrombocythemia; D72.829 Elevated white blood cell count, unspecified; G47.30 Sleep apnea, unspecified; Z79.899 Other long term (current) drug therapy
CPT/HCPCS: 85025; 99195; 99214; 99999

== ENCOUNTER 2021-11-25 12:56 | Oncology outpatient (recurring) (ONCR) | payer MEDICAID, OTHER, SELFPAY ==
[2021-11-25 13:20] LABS: Basophils # 0.1 10^3/uL (0.0-0.1); Basophils % 0.7 %; Eosinophils # 0.4 10^3/uL (0.0-0.8); Eosinophils % 2.3 %; Hematocrit 51.7 % (37.0-47.0); Hemoglobin 17.2 g/dL (11.5-15.3); Lymphocytes % 12.1 %; Mean Corpuscular HGB Conc 33.3 g/dL (30.0-36.0); Mean Corpuscular Hemoglobin 27.5 pg (28.0-34.0); Mean Corpuscular Volume 82.7 fl (81-99); Mean Platelet Volume 9.2 fL (7.4-10.4); Monocytes % 6.3 %; Neutrophils # 12.64 10^3/uL (1.8-7.7); Neutrophils % 77.8 %; Nucleated Red Blood Cells % 0.1 %; Platelet Count 793 10^3/cmm (130-400); Red Blood Count 6.25 10^6/uL (4.1-5.3); White Blood Count 16.2 10^3/uL (4.0-10.0)
--- NOTE | 2021-11-25 14:11 | PC.NURSE ---
contacted patient and reviewed lab results and informed patient she needs phlebotomy today. patient said she already came in and had blood done. Informed patient that she just had a lab drawn and not a 500 cc phlebotomy which she needs as her Hct is 51 today. patient stated she did not need a phlebotomy as she has been drinking a lot of water this week which is what her phone told her to do and she would not be able to comeback until after the 09 of December. I told the patient that i would notifiy her doctor that she refused to come back and she could work out her next appointment with their office. Martha Madden notified of patient response.
== END 2021-12-15 23:59 | disposition home or self-care (01) ==
LOC: ONCMED 12:57
PROVIDERS: PCP Nurse Practitioner Family; Visit Provider Internal Medicine Hematology & Oncology
DX: D45 Polycythemia vera (principal)
CPT/HCPCS: 85025

== ENCOUNTER 2023-05-03 18:50 | Inpatient (IN) | payer MEDICARE, MEDICAID, SELFPAY ==
[2023-05-03 18:51] VITALS: RESP 18; BMI 24.5
--- NOTE | 2023-05-03 18:54 | ECG_ITS ---
[facility] Test Date: 2023-05-03 Pat Name: Carol Dolan Department: Room: 107 Gender: Female Equipment [employer] Storage: : 1950 Requested By: Armani Johnson Order Number: [id number] Kenny MD: Celine Ferro M.D. Measurements Intervals [place] Rate: 80 P: 75 MS: 137 QRS: 60 QRSD: 103 T: 57 QT: 421 QTc: 486 Interpretive Statements SINUS RHYTHM MODERATE ST DEPRESSION [0.05+ mV ST DEPRESSION] Compared to ECG 10/03/2021 19:58:30 Atrial abnormality no longer present ST (T wave) deviation still present Electronically Signed On 05-03-2023 21:57:05 CDT by Celine Ferro M.D. [id number]
[2023-05-03 18:59] LABS: Glucose Point of Care 70 mg/dL (70-110)
[2023-05-03 19:10] VITALS: BP 97/61; PULSE 102; RESP 16; O2SAT 94
--- NOTE | 2023-05-03 19:14 | CTR_ITS ---
PROCEDURE INFORMATION: Exam: CT Head Without Contrast Exam date and time: 05/03/2023 8:40 PM Age: 72 years old Clinical indication: Altered mental status/memory loss; Additional info: AMS TECHNIQUE: Imaging protocol: Computed tomography of the head without contrast. Radiation optimization: All CT scans at this facility use at least one of these dose optimization techniques: automated exposure control; mA and/or kV adjustment per patient size (includes targeted exams where dose is matched to clinical indication); or iterative reconstruction. REPORTING DATA: Count of CT and Cardiac NM exams in prior 12 months: This patient has received 0 known CTs and 0 known cardiac nuclear medicine studies in the 12 months prior to the current study. COMPARISON: CT head wo con* [id number] 10/03/2021 8:38 PM RADIATION DOSE METRICS: Total DLP (mGy-cm): 1012 FINDINGS: Brain: Diffuse cerebral atrophy, consistent with patient's age. No hemorrhage. Less conspicuous pontine hypodensities. Stable appearance of chronic left BROOM MACHINE OPERATOR distribution infarct. Otherwise preserved francisco-white matter differentiation. No mass effect. Bilateral ICA calcifications. Cerebral ventricles: Ventricles are in proportion to the degree of atrophy. Paranasal sinuses: Visualized sinuses are unremarkable. No fluid levels. Mastoid air cells: Mild partial right-sided opacification. Otherwise clear. Orbital cavities: Bilateral lens replacement. Bones/joints: Unremarkable. No acute fracture. Soft tissues: Unremarkable. CT/CT head wo con* [id number] IMPRESSION: Chronic changes without acute intracranial findings.
--- NOTE | 2023-05-03 19:14 | XRR_ITS ---
PROCEDURE INFORMATION: Exam: XR Chest Exam date and time: 05/03/2023 7:18 PM Age: 72 years old Clinical indication: Other: Weakness; Additional info: AMS TECHNIQUE: Imaging protocol: Radiologic exam of the chest. Views: 1 view. COMPARISON: CR XR chest 1V portable [id number] 10/03/2021 7:29 PM FINDINGS: Lungs: Mild left lung base subsegmental atelectasis and/or scarring. No consolidation. Pleural spaces: Subtle blunting of the left costophrenic sulcus. No pneumothorax. Heart/Mediastinum: Unremarkable. No cardiomegaly. Vasculature: Aortic arch atherosclerotic calcification. Bones/joints: Mild degenerative changes along the spine and shoulders. XR/XR chest 1V portable [id number] IMPRESSION: 1. Subtle blunting of the left costophrenic sulcus may be on the basis of atelectasis, scarring, or small pleural effusion. 2. No consolidation.
--- NOTE | 2023-05-03 19:14 | ED_ITS ---
HPI - General Adult General: Chief complaint: General Medical Stated complaint: Weakness Time Seen by Provider: 05/03/23 19:14 History of Present Illness: 72-year-old female presents emergency department via EMS personnel with complaints of increased fatigue and weakness worsening over the previous 2 weeks. Patient states she has not been ambulatory because of her increased swelling of her legs she states she has had increased fatigue and weakness and generalized malaise. She does appear to be acutely ill. Associated symptoms: Reports dyspnea and malaise Review of Systems General: Reports: 10 or more systems reviewed and unremarkable except in HPI and below Const: Reports: body aches, fatigue, malaise and other Card: Reports: swelling of feet/ankles Resp: Reports: dyspnea and productive cough PFSH ED PFSH: Medical History COPD (chronic obstructive pulmonary disease) CVA (cerebral vascular accident) HTN (hypertension) Leukocytosis Polycythemia vera Sleep apnea Surgical History No pertinent past surgical history Family History Father Hyperlipidemia Mother Hypertension Other Chronic kidney disease (CKD) No significant family history Denies family history of Diabetes CAD (coronary artery disease) Clotting disorder Dementia Psychiatric illness Suicide Anesthesia complication Bleeding disorder Lung disease Cancer Stroke Social History Smoking and tobacco/nicotine status: current every day tobacco/nicotine user (varies) Alcohol intake: never Substance/Drug Use: never Lives independently: Yes Physical Exam Narrative: EXAM NARRATIVE: Constitutional: Unkept, frail,The patient appears acutely ill. Vital signs as documented. HENMT: Head exam is unremarkable. Neck is without jugular venous distension, thyromegaly, or carotid bruits. Carotid upstrokes are brisk bilaterally. Eye: No scleral icterus or corneal arcus noted Resp: Decreased bilaterally in the bases secondary to body habitus intermittent rhonchi scattered bilaterally.. Cardio: Cardiac exam reveals the PMI to be normally sized and situated. Rhythm is regular. First and second heart sounds normal. No murmurs, rubs or gallops. 3+ bilateral lower extremity pitting edema to the mid knee GI: Abdominal exam reveals normal bowel sounds, no masses, no organomegaly and no aortic enlargement. Soft, nontender to palpation. No obvious palpable masses noted. No hepatomegaly appreciated. Extremity: Extremities are With 3+ bilateral. She does move all her extremities but does have significant limitations noted. she has sensation in all extremities. Neuro: Alert and oriented x4, person, place, time and situation. Cranial nerves II through XII are grossly intact, there is no focal neurological deficits that I can appreciate at present. Motor strength in the upper and lower extremities are equal and bilateral 5/5. Psych: Cooperative, calm, normal thought process, appropriate judgment. Skin: She does have a decubitus ulcer approximately stage II that is 2 x 2 cm on her right buttocks area. She also has a small left sacral stage I wound. Course Vital Signs: Vital signs: Vital Signs Temperature 97.0 F L 05/11/23 13:13 Pulse Rate 91 05/11/23 14:25 Respiratory Rate 16 05/11/23 14:25 Blood Pressure 108/63 05/11/23 13:13 Pulse Oximetry 96 05/11/23 14:25 Oxygen Delivery Me thod Room Air 05/11/23 13:52 Oxygen Flow Rate 3 05/04/23 12:00 [facility] - General Adult Medical Decision Making Physical exam completed and documented, I will obtain a CBC, CMP as well as lactic acid procalcitonin and CT scan of the head, cardiac enzymes and a twelve- lead EKG as well as chest x-ray. Given the patient's condition I will also obtain a BNP as I suspect she is most likely with acute congestive heart failure, sepsis, and given her duration of immobility she will most likely need to be admitted and potentially provided a case management/social work consult for additional evaluation treatment and care. Differential Diagnosis Sepsis, acute congestive heart failure, pneumonia, failure to thrive, acute renal insufficiency/failure, rhabdomyolysis, Medical Records I reviewed the patient's medical records. Lab Data I reviewed the patient's lab results. 05/11/23 05:13 05/11/23 05:[address] 05/03/23 19:14 IMPRESSION: Chronic changes without acute intracranial findings. Hip X-Ray 05/05/23 10:14 IMPRESSION: Mild degenerative changes right hip joint. No acute bony abnormalities. Chest X-Ray 05/07/23 04:00 IMPRESSION: No radiographic evidence of aspiration Laboratory Results WBC 41.20 10^3/uL (3.29-11.43) H* 05/03/23 19:20 RBC 7.05 10^6/uL (3.85-5.65) H 05/03/23 19:20 Hgb 15.30 g/dL (11.27-16.99) 05/03/23 19:20 Hct 49.6 % (36-47) H 05/03/23 19:20 MCV 70.4 fl (85-98) L 05/03/23 19:20 MCH 21.7 pg (27-33) L 05/03/23 19:20 MCHC 30.8 g/dL (30-55) 05/03/23 19:20 RDW 25.0 % (12.1-15.1) H 05/03/23 19:20 Plt Count 1208 10^3/cmm (157-399) H 05/03/23 19:20 MPV 9.4 fL (7.4-10.4) 05/03/23 19:20 Neut % (Auto) 87.0 % 05/03/23 19:20 Lymph % (Auto) 3.6 % 05/03/23 19:20 [place] % (Auto) 4.5 % 05/03/23 19:20 Eos % (Auto) 0.6 % 05/03/23 19:20 Baso % (Auto) 0.4 % 05/03/23 19:20 Neut # (Auto) 35.82 10^3/uL (1.8-7.7) H 05/03/23 19:20 Lymph # (Auto) 1.5 10^3/uL (0.8-4.8) 05/03/23 19:20 [place] # (Auto) 1.8 10^3/uL (0.2-0.9) H 05/03/23 19:20 Eos # (Auto) 0.3 10^3/uL (0.0-0.8) 05/03/23 19:20 Baso # (Auto) 0.2 10^3/uL (0.0-0.1) H 05/03/23 19:20 Nucleated RBC % (auto) 0.4 % 05/03/23 19:20 Nucleated RBCs # 0.2 /100WBC 05/03/23 19:20 Sodium 147 mmol/L (136-145) H 05/03/23 19:20 Potassium 5.5 mmol/L (3.5-5.1) H 05/03/23 19:20 Chloride 107 mmol/L (98-107) 05/03/23 19:20 Carbon Dioxide 20 mmol/L (22-29) L 05/03/23 19:20 Anion Gap 25.5 (5-19) H 05/03/23 19:20 BUN 90 mg/dL (8-23) H* D 05/03/23 19:20 Creatinine 2.1 mg/dL (0.5-0.9) H 05/03/23 19:20 GFR Calculation Not Reportable 05/03/23 19:20 Glucose 83 mg/dL (65-115) 05/03/23 19:20 POC Glucose 70 mg/dL (70-110) 05/03/23 18:56 Calculated Osmolality 331 mOsm/kg (285-295) H 05/03/23 19:20 Lactic Acid 2.5 mmol/L (0.5-2.2) H 05/03/23 19:20 Lactic Acid (Sepsis) 1.4 mmol/L (0.5-2.2) 05/03/23 02:14 Calcium 9.6 mg/dL (8.5-10.5) 05/03/23 19:20 Magnesium 2.9 mg/dL (1.7-2.3) H 05/03/23 19:20 Total Bilirubin 0.6 mg/dL (0.15-1.2) 05/03/23 19:20 AST 33 U/L (0-32) H 05/03/23 19:20 ALT 23 U/L (0-33) 05/03/23 19:20 Alkaline Phosphatase 124 U/L (35-105) H 05/03/23 19:20 Creatine Kinase 762 U/L (26-192) H* 05/03/23 19:20 Troponin T Baseline 228 ng/L (0-10) H* 05/03/23 19:20 NT-Pro-B Natriuret Pep 6707 pg/mL (0-125) H 05/03/23 19:20 Total Protein 6.1 g/dL (6.6-8.7) L 05/03/23 19:20 Albumin 2.7 g/dL (3.5-5.2) L 05/03/23 19:20 Globulin 3.4 g/dL (1.3-4.6) 05/03/23 19:20 Procalcitonin 0.91 ng/mL (0-0.5) H 05/03/23 19:20 Urine Color Yellow (Yellow) 05/03/23 19:40 Urine Appearance Clear (CLEAR) 05/03/23 19:40 Urine pH 5 (5-7) 05/03/23 19:40 Ur Specific [place] 1.020 (1.005-1.030) 05/03/23 19:40 Urine Protein Trace (Negative) 05/03/23 19:40 Urine Glucose (UA) Norm (Normal) 05/03/23 19:40 Urine Ketones Negative (Negative) 05/03/23 19:40 Urine Blood Neg (Negative) 05/03/23 19:40 Urine Nitrate Negative (Negative) 05/03/23 19:40 Urine Bilirubin 1+ (Negative) H 05/03/23 19:40 Urine Urobilinogen 1 mg/dL (Negative) H 05/03/23 19:40 Ur Leukocyte Esterase Trace (Negative) H 05/03/23 19:40 Urine RBC 0-4 /hpf (0-2) H 05/03/23 19:40 Urine WBC 5-10 /hpf (0-5) H 05/03/23 19:40 Ur Squamous Epith Cells 0-4 /hpf (0-5) H 05/03/23 19:40 Amorphous Sediment Not Reportable 05/03/23 19:40 Urine Bacteria Trace /hpf (NONE) 05/03/23 19:40 Hyaline Casts 0-4 /lpf H 05/03/23 19:40 Urine Mucus 1+ /hpf 05/03/23 19:40 Urine Opiates Screen Negative ng/mL (Negative) 05/03/23 19:40 Ur Barbiturates Screen Negative ng/mL (Negative) 05/03/23 19:40 Ur Phencyclidine Scrn Negative ng/mL (Negative) 05/03/23 19:40 Ur Amphetamines Screen Negative ng/mL (Negative) 05/03/23 19:40 U Benzodiazepines Scrn Negative ng/mL (Negative) 05/03/23 19:40 Urine Cocaine Screen Negative ng/mL (Negative) 05/03/23 19:40 U Marijuana (THC) Screen Negative ng/mL (Negative) 05/03/23 19:40 All radiology interpretation(s) finalized by discharge Critical Care Time Critical Care Time: Critical Care Time: Yes Total Critical Care Time: 60 Attestation: This case had a high probability of a clinically significant, sudden, or life threatening deterioration of this patient's condition which required my full and direct attention, intervention and personal management. Discharge Plan Discharge Patient Disposition: Admitted As Inpatient Admit Provider: Collette Banks Clinical Impression: Acute renal failure, Acute CHF (congestive heart failure), Sepsis Condition: Stable Discharge Diet: As Directed Discharge Activity: Resume usual activity Coding Level of Care Code ED Nat Instructor for Delia Goodson
[2023-05-03 19:34] LABS: Basophils # 0.2 10^3/uL (0.0-0.1); Basophils % 0.4 %; Eosinophils # 0.3 10^3/uL (0.0-0.8); Eosinophils % 0.6 %; Hematocrit 49.6 % (36-47); Lymphocytes # 1.5 10^3/uL (0.8-4.8); Lymphocytes % 3.6 %; Mean Corpuscular HGB Conc 30.8 g/dL (30-55); Mean Corpuscular Hemoglobin 21.7 pg (27-33); Mean Corpuscular Volume 70.4 fl (85-98); Mean Platelet Volume 9.4 fL (7.4-10.4); Monocytes # 1.8 10^3/uL (0.2-0.9); Monocytes % 4.5 %; Neutrophils # 35.82 10^3/uL (1.8-7.7); Nucleated Red Blood Cells # 0.2 /100WBC; Nucleated Red Blood Cells % 0.4 %; Platelet Count 1208 10^3/cmm (157-399); Red Blood Count 7.05 10^6/uL (3.85-5.65)
[2023-05-03 19:46] LABS: Lactic Sepsis W/Reflex 2.5 mmol/L (0.5-2.2)
[2023-05-03] MEDS: sodium chloride 0.9% 1,000 ML 999 ML IV ×2 (19:47→20:54)
--- NOTE | 2023-05-03 19:48 | PC.NURSE ---
pt was removed from the bedpan and cleaned with bed bath wipes. pts entire body wa wiped with the bed bath wipes and placed on clean linen
[2023-05-03 19:58] LABS: NT Pro B Type Natriuretic Pept 6707 pg/mL (0-125); Procalcitonin 0.91 ng/mL (0-0.5)
[2023-05-03 20:02] LABS: Troponin(5th) Baseline 228 ng/L (0-10)
[2023-05-03 20:09] VITALS: BP 134/60; PULSE 70; RESP 18; O2SAT 95
[2023-05-03 20:09] LABS: Add Urine Microscopic? YES; Bilirubin Urine 1+ (Negative); Blood Urine Neg (Negative); Glucose Urine UA Norm (Normal); Ketones Urine Negative (Negative); Leukocyte Esterase Urine Trace (Negative); Nitrate Urine Negative (Negative); Protein Urine Trace (Negative); Urine Appearance Clear (CLEAR); Urine Color Yellow (Yellow); Urobilinogen Urine 1 mg/dL (Negative); pH Urine 5 (5-7)
[2023-05-03 20:09] LABS: Alanine Aminotransferase 23 U/L (0-33); Albumin Level 2.7 g/dL (3.5-5.2); Alkaline Phosphatase 124 U/L (35-105); Anion Gap 25.5 (5-19); Aspartate Amino Transferase 33 U/L (0-32); Calcium 9.6 mg/dL (8.5-10.5); Carbon Dioxide 20 mmol/L (22-29); Chloride 107 mmol/L (98-107); Globulin 3.4 g/dL (1.3-4.6); Glucose 83 mg/dL (65-115); Magnesium 2.9 mg/dL (1.7-2.3); Osmolality Calculated 331 mOsm/kg (285-295); Potassium 5.5 mmol/L (3.5-5.1); Sodium 147 mmol/L (136-145); Total Bilirubin 0.6 mg/dL (0.15-1.2); Total Protein 6.1 g/dL (6.6-8.7)
[2023-05-03 20:11] LABS: Amphetamines Screen Urine Negative (Negative); Barbiturates Screen Urine Negative (Negative); Benzodiazepines Screen Urine Negative (Negative); Cocaine Screen Urine Negative (Negative); Opiate Screen Urine Negative (Negative); PCP Screen Urine Negative (Negative); THC Screen Urine Negative (Negative)
[2023-05-03 20:13] LABS: Add Urine Culture? No; Bacteria Urine TRACE /hpf; Hyaline Casts Urine 0-4 /lpf; Mucus Urine 1+ /hpf; RBC Urine 0-4 /hpf (0-2); Squamous Epithelial Cell Urine 0-4 /hpf (0-5)
[2023-05-03 20:14] LABS: Blood Urea Nitrogen 90 mg/dL (8-23)
[2023-05-03] MEDS: levofloxacin-dextrose 5 % 750 MG/150 ML PREMIX 100 MG IV (20:53)
[2023-05-03 21:07] LABS: Creatine Phosphokinase 762 U/L (26-192)
[2023-05-03 21:09] LABS: Reflex Lactate Order REFLEX LACTIC ORDERD
--- NOTE | 2023-05-03 21:09 | ECG_ITS ---
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 Measurements Intervals [place] Rate: 76 P: 76 IA: 144 QRS: 70 QRSD: 105 T: 61 QT: 409 QTc: 462 Interpretive Statements SINUS RHYTHM WITH SINUS ARRHYTHMIA NONSPECIFIC ST & T-WAVE ABNORMALITY Compared to ECG 10/03/2021 19:58:30 T-wave abnormality now present Atrial abnormality no longer present ST (T wave) deviation no longer present Electronically Signed On 05-03-2023 22:08:27 CDT by Celine Ferro M.D. [id number]
[2023-05-03 21:44] VITALS: BP 91/63; PULSE 83; RESP 20; O2SAT 94
--- NOTE | 2023-05-03 21:52 | PC.NURSE ---
In pt report nurse handing off stated she started the pt's 2nd bolus. Upon entering the room bolus was found laying on the dirty linen bin unopened. In report called to CSU it was relayed to the nurse the bolus was just started.
[2023-05-03 22:31] LABS: Troponin 5 2HR Delta -8.8 ABS# (0-10)
[2023-05-03 22:35] LABS: Troponin 5 2HR 219.2 ng/L (0-10)
[2023-05-03 22:41] LABS: Glucose Point of Care 81 mg/dL (70-110)
[2023-05-03 22:54] VITALS: BP 100/53; PULSE 83; RESP 27; O2SAT 93
--- NOTE | 2023-05-03 23:04 | PM.HP ---
Providers/Chief Complaint Admitting Physician: Collette Banks MD Primary Care Provider: JUDY Hughes Chief Complaint: Weakness History of Present Illness Carol Dolan is a 72 year old female COPD (chronic obstructive pulmonary disease) CVA (cerebral vascular accident) HTN (hypertension) Leukocytosis Polycythemia vera Sleep apnea Was brought in by EMS for complaint of generalized weakness since 2 to 3 weeks. She reports she had a high-grade fever 2 weeks ago and was treated by her PCP Dr. Javier for flulike symptoms. But she did not feel well and has been bedridden with neglected care for the last 2 weeks. 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 She was able to walk around with a walker 2 weeks ago. She denies any history of chest pain shortness of breath abdominal pain nausea vomiting or urinary complaints. But reports having severe pain in her lower back and bilateral knees. Review of Systems Narrative: As per HPI Medications/Allergies Home Medications Medication Instructions Recorded Confirmed Last Taken Type albuterol sulfate 90 mcg/actuation 1 puff inhalation QID PRN 10/04/21 11/18/21 Unknown History aerosol inhaler Shortness Of Breath fluticasone propionate 50 1 spray intranasal BID PRN Nasal 10/04/21 11/18/21 Unknown History mcg/actuation nasal Congestion spray,suspension amlodipine 5 mg tablet 5 mg PO DAILY #30 tabs 10/05/21 11/18/21 Unknown Rx aspirin 81 mg tablet,delayed 81 mg PO DAILY #90 tabs 10/05/21 11/18/21 Unknown Rx release (Chhaya Low Dose Aspirin) atorvastatin 40 mg tablet 40 mg PO DAILY #60 tabs 10/05/21 11/18/21 Unknown Rx clopidogrel 75 mg tablet 75 mg PO DAILY #20 tabs 10/05/21 11/18/21 Unknown Rx lisinopril 10 mg tablet 5 mg PO DAILY #30 tabs 10/05/21 11/18/21 Unknown Rx Allergies Allergy/AdvReac Type Severity Reaction Status Date / Time Penicillins Allergy Unknown Unknown Verified 05/03/23 19:01 aspirin AdvReac Unknown Unknown Verified 05/03/23 19:01 PFSH Acute PFSH: Medical History COPD (chronic obstructive pulmonary disease) CVA (cerebral vascular accident) HTN (hypertension) Leukocytosis Polycythemia vera Sleep apnea Surgical History No pertinent past surgical history Family History Father Hyperlipidemia Mother Hypertension Other Chronic kidney disease (CKD) No significant family history Denies family history of Diabetes CAD (coronary artery disease) Clotting disorder Dementia Psychiatric illness Suicide Anesthesia complication Bleeding disorder Lung disease Cancer Stroke Social History Smoking and tobacco/nicotine status: current every day tobacco/nicotine user (varies) Alcohol intake: never Substance/Drug Use: never Lives independently: Yes Vitals/I&O/Wt Last Vital Signs Pulse 83 05/03/23 22:54 Resp 27 H 05/03/23 22:54 BP 100/53 05/03/23 22:54 Pulse Ox 93 05/03/23 22:54 O2 Del Method Room Air 05/03/23 19:10 05/03/23 05/03/23 05/04/23 14:59 22:59 06:59 Intake Total 1150 / 1150 Balance 1150 / 1150 Weight last 48 hrs Weight 58.967 kg Physical Exam Narrative: She is alert awake oriented x3 in severe distress due to generalized pain and stiffness Chest clear to auscultation bilaterally Cardiovascular normal heart sounds no murmurs Abdomen NAD Extremities bilateral 3+ pitting lower extremity edema, bilateral knees swollen and tender to palpation Back stage II small 2 x 1 cm decubiti present on the right buttock and stage I on the left buttock and lower sacral area. Data 05/03/23 19:20 05/03/23 19:20 Micro: Microbiology 05/03/23 19:47 Blood Culture - Preliminary Blood SPECIMEN COLLECTED 05/03/23 19:47 Blood Culture - Preliminary Blood SPECIMEN COLLECTED CXR: Radiologist's impression: IMPRESSION: 1. ? Subtle blunting of the left costophrenic sulcus may be on the basis of atelectasis, scarring, or small pleural effusion. 2. ? No consolidation. CT Head: Radiologist's impression: Chronic changes without acute intracranial findings EKG 1: My Interpretation: Normal sinus rhythm at [address] flattening in lead I lead II V5 V6 A&P Assessment and plan (1) Generalized weakness: (2) Severe pain: (3) Hypotension: (4) Acute renal failure: (5) Polycythemia vera: (6) Elevated troponin: Plan 72 year old female COPD (chronic obstructive pulmonary disease) CVA (cerebral vascular accident) HTN (hypertension) Leukocytosis Polycythemia vera Sleep apnea Was brought in by EMS for complaint of generalized weakness and pain since 2 to 3 weeks. And found to have elevated WBCs 41 platelets 1208 troponins 228 , 219 BNP 6700 lactic acid 2.5 hemoglobin 15 CK 762, sacral and gluteal decubiti and mildly positive UA likely secondary to dehydration, sepsis and rhabdomyolysis Will give IV fluids normal saline at 100 mL/h IV levofloxacin 750 mg daily for infected decubitus Wound care as per protocol IV morphine 2 mg every 4 hours for pain control Since there is no next of kin available in the system ,need to discuss with the primary care physician Dr. Javier in a.m. for further information on polycythemia vera her baseline medical condition and CODE STATUS Elevated WBCs hemoglobin up and platelets likely due to polycythemia vera, will monitor for now Elevated troponins and BNP likely secondary to ischemic cardiomyopathy, will check 2D echo in a.m. Hypotension secondary to severe dehydration, continue IV fluids. Hold p.o. amlodipine and lisinopril for now. Troponins trending down, hence no need for further anticoagulation IV Pepcid 20 mg twice a day for stress ulcer prophylaxis Subcutaneous Lovenox 40 mg daily for DVT prophylaxis Cardiac diet She is full code for now. Attestations Medical Necessity Statement*: She needs more than 2 days of hospitalization for severe dehydration UTI and sacral/gluteal decubiti. Needs treatment with IV fluids antibiotics, x-ray/bone scan to rule out osteomyelitis, and pain control for generalized pain. Time Spent in Patient Care: 35 minutes Coding Level of Care Code Critical Care >/= 30 minutes Diagnoses Generalized weakness R53.1 Severe pain R52 Hypotension I95.9 Acute renal failure N17.9 Polycythemia vera D45 Elevated troponin R79.89 Time Spent (min) 35
[2023-05-03] MEDS: enoxaparin 60 mg/0.6 mL Syringe SUBCUT (23:20)
[2023-05-03 23:43] VITALS: BP 88/45; PULSE 83; RESP 20; O2SAT 91
[2023-05-04] VITALS (150 sets, daily range): BP systolic 73–116; BP diastolic 42–68; PULSE 78–125; RESP 15–36; TEMP 36.3; O2SAT 72–100
[2023-05-04] MEDS: sodium chloride 0.9% 1,000 ML 100 ML IV ×3 (00:37→23:16)
[2023-05-04] MEDS: famotidine 20 mg/2 mL INJ IVP ×2 (00:37→11:16)
--- NOTE | 2023-05-04 01:14 | ECG_ITS ---
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 Measurements Intervals [place] Rate: 93 P: 64 IA: 141 QRS: 69 QRSD: 110 T: 89 QT: 387 QTc: 482 Interpretive Statements SINUS RHYTHM NONSPECIFIC ST & T-WAVE ABNORMALITY Compared to ECG 05/03/2023 21:09:54 Sinus arrhythmia no longer present T-wave abnormality still present Electronically Signed On 05-04-2023 19:42:59 CDT by Richard Shafer M.D. [id number]
--- NOTE | 2023-05-04 01:45 | PC.NURSE ---
Lab unable to obtain blood after numerous attempts. Nurse attempted to draw blood from ivs, no blood return. Hospitalist was notified. Given orders to contact PICC team. Notified warehouse delivery driver.
[2023-05-04 02:47] LABS: Basophils # 0.2 10^3/uL (0.0-0.1); Basophils % 0.4 %; Eosinophils # 0.3 10^3/uL (0.0-0.8); Eosinophils % 0.7 %; Hematocrit 43.7 % (36-47); Lymphocytes # 1.4 10^3/uL (0.8-4.8); Lymphocytes % 3.8 %; Mean Corpuscular HGB Conc 30.7 g/dL (30-55); Mean Corpuscular Volume 71.8 fl (85-98); Mean Platelet Volume 9.2 fL (7.4-10.4); Monocytes # 1.6 10^3/uL (0.2-0.9); Monocytes % 4.3 %; Neutrophils # 32.86 10^3/uL (1.8-7.7); Neutrophils % 86.3 %; Nucleated Red Blood Cells # 0.1 /100WBC; Nucleated Red Blood Cells % 0.1 %; Platelet Count 879 10^3/cmm (157-399); Red Blood Count 6.09 10^6/uL (3.85-5.65); Red Cell Distribution Width 24.2 % (12.1-15.1)
[2023-05-04 02:55] LABS: White Blood Count 38.03 10^3/uL (3.29-11.43)
[2023-05-04 03:13] LABS: Troponin 5 6HR Delta 8.2 ng/L (0-12)
[2023-05-04 03:14] LABS: Lactic Acid level (Lactate) 1.4 mmol/L (0.5-2.2)
[2023-05-04 03:14] LABS: Troponin 5 6HR 236.2 ng/L (0-10)
[2023-05-04 03:15] LABS: Alanine Aminotransferase 21 U/L (0-33); Albumin Level 2.1 g/dL (3.5-5.2); Alkaline Phosphatase 104 U/L (35-105); Anion Gap 22.6 (5-19); Aspartate Amino Transferase 56 U/L (0-32); Calcium 8.6 mg/dL (8.5-10.5); Carbon Dioxide 16 mmol/L (22-29); Chloride 112 mmol/L (98-107); Globulin 2.8 g/dL (1.3-4.6); Glucose 76 mg/dL (65-115); Magnesium 2.5 mg/dL (1.7-2.3); Osmolality Calculated 328 mOsm/kg (285-295); Phosphorus 6.2 mg/dL (2.5-4.5); Potassium 4.6 mmol/L (3.5-5.1); Sodium 146 mmol/L (136-145); Total Bilirubin 0.6 mg/dL (0.15-1.2); Total Protein 4.9 g/dL (6.6-8.7)
[2023-05-04 03:19] LABS: Blood Urea Nitrogen 89 mg/dL (8-23)
--- NOTE | 2023-05-04 07:34 | XR_ITS ---
WS: [id number] Portable AP upright chest, 05/04/2023 Clinical Data: Post PICC insertion Comparison: Portable chest, 05/03/2023 Findings: The right PICC line ends in the superior vena cava. No pneumothorax is seen. Impression: Satisfactory insertion of right PICC line.
--- NOTE | 2023-05-04 08:22 | PC.PHAR ---
Addendum entered by Debbie Do 05/04/23 08:35: CALLED BOTH OF PTS PHARMACIES - ALL MEDICATIONS HAVE BEEN RECENTLY FILLED EXCEPT CLOPIDOGREL 75 MG HAS NOT BEEN FILLED OR PICKED UP SINCE 03/2022. REMOVED FROM MED LIST Original Note: PT UNABLE TO VERIFY MEDICATIONS- PT HAS NO CONTACTS - WILL CALL PTS PHARMACY WHEN THEY OPEN FOR LAST FILLED
--- NOTE | 2023-05-04 08:30 | PC.NURSE ---
Double lumen PICC placed to right basilic vein. Pt referred for PICC placement due to poor peripheral access and inability to draw labs. Pt alert to self and place but slightly confused, stating, close door so the cat won't get out. No phone numbers listed for family or friends to give consent for line placement. Dr. Ruano notified and gave emergent consent for line placement. Risks and benefits discussed with patient verbalizing understanding. Right arm assessed with right basilic vein measuring 5 mm, straight, and apparent best choice for placment. Using sterile technique and MST, right basilic vein accessed x 1 stick. Mid-arm circumference measured 10 cm from right AC 27 cm. Trimmed cath 33 cm with 0 cm external length noted. CXR shows tip in SVC, in good position for use per radiologist. Line secured with stat-lock. Site covered with Biopatch and TSM. Report given to bedside nurse, Rory.
[2023-05-04] MEDS: atorvastatin 40 mg Tablet PO (09:44)
[2023-05-04] MEDS: clopidogrel 75 mg Tablet PO (09:44)
[2023-05-04] MEDS: aspirin 81 mg EC Tablet PO (09:44)
[2023-05-04] MEDS: heparin 5,000 unit/mL INJ 1 mL IV (11:16)
[2023-05-04] MEDS: heparin drip 25,000 UNIT/500 ML PREMIX 16.51 UNIT IV (11:28)
--- NOTE | 2023-05-04 11:30 | P.PN_ITS ---
Subjective Subjective: Patient seen and examined this morning. Appears to be acutely ill. Grossly dehydrated. Dry parched mucous membrane. Blood pressure has been ranging soft with systolic between 86 to 92 mmHg. Tachycardic with sinus tachycardia. Right lower extremity is grossly swollen and painful to touch. Patient does not extend at the hip or the knee, unable to tell me how long her extremity has been like this. She is alert awake and oriented though speaks very softly and is often difficult to understand. PICC line was placed this morning to facilitate IV access. Patient states that she has had recurrent infections over the last 3 weeks which was being treated by primary care physician Morenita Javier as outpatient. She states she has had multiple rounds of antibiotics and has been diagnosed with v arious infections including in her throat eyes and ears. She has been having dry cough for the last 3 weeks. Antibiotics do not appear to have improved her symptoms in any way. I am unable to see any notes for the same, will request clinic notes for recent history. She states that she lives by herself and her neighbor checks in on her intermittently. She called the police yesterday when she felt acutely ill and was not able to get up at all. Thereafter EMS was brought in and she came to the hospital. Medications: Reviewed: Yes Vitals/I&O/Wt Last Vital Signs Pulse 105 H 05/04/23 12:00 Resp 28 H 05/04/23 12:00 BP 109/52 05/04/23 12:00 Pulse Ox 96 05/04/23 12:00 O2 Del Method Nasal Cannula 05/04/23 12:00 O2 Flow Rate 3 05/04/23 12:00 05/03/23 05/04/23 05/04/23 22:59 06:59 14:59 Intake Total 1150 / 1150 1320 / 1320 Output Total 1300 / 1300 3800 / 3800 Balance 1150 / 1150 -1300 / -150 -2480 / -2480 Weight last 48 hrs Weight 58.967 kg Physical Exam 2 Narrative: General: Acutely ill, grossly dehydrated, dry skin and mucous membranes AO x3 HEENT: PERRLA, pupils bilaterally equal and reactive, pallors not present Chest: Normal vesicular breath sounds, no added sounds CVS: S1-S2 regular, no murmurs, no tachycardia, no gallops, no rubs Abdomen: Soft, nontender, no organomegaly, bowel sounds present Neuro: Does not move a grossly swollen right lower extremity. Has cellulitic appearing changes at the base of her right foot. Tenderness to palpation diffusely over the right leg. Keeps the leg externally rotated. I suspect this is related to pain rather than any focal deficits. Patient does have a prior history of 2 strokes. Extremities: Right lower extremity swollen, erythematous and tender to touch. Urinary Catheter Management: Haskins: Cath Placed During This Visit: yes Reason for Continuing Indwelling Catheter: Assist Healing of Perineal & Sacral Wounds- Incontinent Patients Urinary Catheter Date of Insertion: 05/04/23 Data 05/04/23 02:14 05/04/23 02:14 Micro: Microbiology 05/03/23 19:47 Blood Culture - Preliminary Blood SPECIMEN COLLECTED 05/03/23 19:47 Blood Culture - Preliminary Blood SPECIMEN COLLECTED A&P Assessment and plan (1) Sepsis: Qualifiers: Sepsis type: sepsis due to unspecified organism Sepsis acute organ dysfunction status: with acute organ dysfunction Severe sepsis acute organ dysfunction type: acute renal failure Acute renal failure type: with acute tubular necrosis Severe sepsis shock status: without septic shock Qualified Code(s): A41.9 - Sepsis, unspecified organism; R65.20 - Severe sepsis without septic shock; N17.0 - Acute kidney failure with tubular necrosis (2) Hypotension: (3) Acute renal failure: (4) Polycythemia vera: (5) Thrombocytosis: (6) Cellulitis: (7) Right leg swelling: Plan 72-year-old lady with a past medical history of CVA and polycythemia vera not currently on any treatment presented to the hospital with 3 weeks of progressively worsening weakness generalized fatigue and malaise. She states she has had fevers up to 103 Fahrenheit at home. She has recently been treated with several rounds of antibiotics by her primary care provider though I am unable to understand by her history as to the source of her infection. # Likely sepsis as evidenced by leukocytosis up to 41,000, reported fevers at home up to 103 Fahrenheit, reported history of recent antibiotic use as outpatient, tachycardia tachypnea and hypotension with endorgan manifestations of acute kidney injury and NSTEMI. This was present on admission. Patient received fluid bolus in the emergency room yesterday since then has been on 100 cc an hour normal saline which we will continue for now. Lactate charted at 2.5 upon admission, improved to 1.4 thereafter with fluid resuscitation. Patient is grossly dehydrated, will continue IV fluids. Source of infection may be possible pneumonia given history of cough for the past 3 weeks though chest x-ray shows suggestion of a mild pleural effusion versus atelectasis. Will obtain CT of the chest for further characterization. She denies any localizing abdominal symptoms. Noted to have grossly swollen right lower extremity with erythema involving the right foot. I am concerned for possible underlying DVT given that she is high risk for the same because of her polycythemia vera. Alternate possibility is that of cellulitis over the right foot. Patient has cats as pets at home, however denies any recent animal bites. She has athlete's foot which may be a predisposing factor for cellulitis. Also concerned about possible PE, however will hold off on CTA given her acute kidney injury. Discontinue levofloxacin. Broaden antibiotic therapy to include cefepime and vancomycin. 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 We will obtain peripheral smear for review by oncology. # NSTEMI EKG showing sinus rhythm with ST depression in leads V2, V4, V5 and V6. No past history of known coronary artery disease. Elevated troponins in the 200 range, downtrending delta at 2 and 6 hours. Patient currently denies any chest pain. Overall clinical picture concerning for NSTEMI versus recent cardiac event which may have been precipitated by thrombocytosis and PV Start heparin infusion Obtain echocardiogram Continue aspirin 81 mg p.o. daily and atorvastatin 40 mg daily Holding lisinopril due to LEANA. Holding off on adding beta-blockers at this time due to soft blood pressure. May need to consider stress test once recovered from an acute sepsis standpoint. keeping RLE externally rotated #Acute kidney injury Creatinine at 2.0 Suspect this is related to ATN from dehydration and hypotension. Patient states she has been too weak to eat, has not had any oral intake in about 3 days. IV fluids normal saline to continue Haskins catheter to monitor strict LASHAUN's. #Rhabdomyolysis, continue hydration, recheck CK with a.m. labs. DVT prophylaxis: Currently on a heparin drip which will suffice Full code discussed with patient PUD prophylaxis: Protonix 40 mg daily, patient reports a past history of GI ulcers unable to verify the same at this point. Attestations Medical Necessity Statement*: Sepsis, needs iv abx, iv fluids, heparin drip , monitoring renal function , imaging as noted above Critical Care Time: The high probability of a clinically significant, sudden or life threatening deterioration of the patient's [renal, Infectious,hematology] system(s) required my full and direct attention, intervention and personal management. The critical care time is as shown. This time is in addition to time spent performing any reported procedures but includes the following: [x] Data and vital sign review and interpretation [x] Patient assessment, examination and intervention [x] Documentation [x] Medication orders and management Critical Care Time (min): 70 Coding Level of Care Code Critical Care >/= 30 minutes Critical care time (in minutes): 70 The high probability of a clinically significant, sudden or life threatening deterioration, as referenced in this documentation, required my full and direct attention, intervention and personal management. The critical care time shown is in addition to time spent performing any reported separately billable procedures and includes the following: [x] Data and vital sign review and interpretation [x ] Patient assessment, examination and intervention [x] Medication orders and management [x] Patient/Family updates as able [x] Care Coordination and Documentation. Diagnoses Sepsis A41.9; R65.20; N17.0 Sepsis type: sepsis due to unspecified organism Sepsis acute organ dysfunction status: with acute organ dysfunction Severe sepsis acute organ dysfunction type: acute renal failure Acute renal failure type: with acute tubular necrosis Severe sepsis shock status: without septic shock Hypotension I95.9 Acute renal failure N17.9 Polycythemia vera D45 Thrombocytosis D75.839 Cellulitis L03.90 Right leg swelling M79.89
--- NOTE | 2023-05-04 11:53 | USCV_ITS ---
Carol Dolan Age: 72 Gender: F : 1950 Exam Date: 05/04/2023 12:15 Ordering Phys: Jaqueline Ruano MD Technologist: CT Exam Location: [facility] [place]_ Indication: BLE SWELLING HISTORY: Lower extremity swelling. PROCEDURES: Venous duplex imaging was performed in bilateral lower extremities. The following venous structures were evaluated: common femoral vein, profunda vein, proximal portion of the greater saphenous vein, superficial femoral vein, and the popliteal vein. In addition, the posterior tibial and peroneal trunk were evaluated. Serial compression, augmentation maneuvers, and spectral Doppler flow evaluation were performed. FINDINGS: + DVT SEEN IN RIGHT LEG FROM CFV- PTV AND PERONEAL V + DVT SEEN IN LEFT PROFUNDA. ALL OTHER VEINS APPEAR PATENT CONCLUSIONS RIGHT DVT from CFV to posterior tibial and peroneal veins LEFT non-occlusive DVT in profunda Message left for Alden Thomas at 1300 05/04/23 Concrete Finisher Apprentice notified patients nurse at time of study D/w Dr. Ruano at 1315 Jake Estevez MD (Electronically Signed) Final Date: 04 May 2023 13:06 Amended: 04 May 2023 13:15 C
--- NOTE | 2023-05-04 11:53 | CT_ITS ---
WS: [id number] CT CHEST, ABDOMEN, AND PELVIS TECHNIQUE: Noncontrast CT of the chest, abdomen, and pelvis with coronal and sagittal reformatted yohana ges. CLINICAL INFORMATION: sepsis , sourec evaluaation COMPARISON: None. DLP: 761.[address] scans at [facility] use at least one of these dose optimization techniques: automated e xposure control; mA and/or kV adjustment per patient size (includes targeted exams where dose is matc hed to clinical indication); or iterative reconstruction. CT CHEST: Ovoid nodule RIGHT lower lobe anteriorly along the diaphragm measuring 1.4 x 1.3 cm. Mild to moderate chronic emphysematous changes. Trace pleural fluid in the lung bases. Slight atelectasis in the RIGH T greater than LEFT lower lobes. RIGHT central venous catheter tip in the distal SVC. Aortic calcific ation. Coronary calcification. No mediastinal or hilar lymphadenopathy. Small esophageal hernia. No a xillary lymphadenopathy. CT ABDOMEN AND PELVIS: Mild hepatomegaly. Noncontrast liver otherwise appears normal. Spleen granulomas. Small esophageal re nal hernia. Fatty atrophy of the pancreas. Adrenal glands are normal. No hydronephrosis in either kid mary. No visualized obstructing renal or ureteral calculi. Haskins catheter. Bladder is decompressed. Sigmoid diverticulosis. Mild sigmoid constipation with tortu ous sigmoid colon. Caliber transition in the sigmoid colon may be due to chronic stricture from prior diverticulitis but indeterminate. This also could be due to spasm. Recommend follow-up with sigmoido scopy. Normal appendix in the RIGHT lower quadrant. Normal caliber abdominal aorta. Moderate spondylitic reagan nges lumbar spine. IMPRESSION: 1. Noncalcified ovoid nodule RIGHT lower lobe anteriorly adjacent to the diaphragm measuring 1.4 x 1 .3 cm. This can be further evaluated with PET/CT. 2. Tiny bilateral pleural effusion with compressive atelectasis in the lung bases. 3. Small esophageal hiatal hernia. 4. No nephrosis in either kidney. 5. Haskins catheter. 6. Sigmoid diverticulosis. No evidence of acute diverticulitis. 7. Segmental stricturing or spasm in the sigmoid colon may be due to prior diverticulitis. Recommend follow-up with sigmoidoscopy. 8. Mild sigmoid constipation.
--- NOTE | 2023-05-04 11:53 | USCV_ITS ---
Carol Dolan Age: 72 Gender: F : 1950 Exam Date: 05/04/2023 18:27 Ordering Phys: Jaqueline Ruano MD Technologist: JASON Exam Location: [facility] [place] Indication: NSTEMI, hx CAD COPD HTN BP: 73 / 59 HR: 87 Rhythm: Sinus Technical Quality: Adequate MEASUREMENTS (Male / Female) Normal Values 2D ECHO LV Diastolic Diameter PLAX 4.4 cm 4.2 - 5.9 / 3.9 - 5.3 cm LV Systolic Diameter PLAX 2.8 cm IVS Diastolic Thickness 1.1 cm 0.6 - 1.0 / 0.6 - 0.9 cm IVS Systolic Thickness 1.8 cm LVPW Diastolic Thickness 1.2 cm 0.6 - 1.0 / 0.6 - 0.9 cm LVPW Systolic Thickness 1.3 cm LVOT Diameter 2.0 cm LV Ejection Fraction 2D Teich 65.5 % LV Ejection Fraction MOD 2C 72.2 % LV Ejection Fraction 2C AL 73.3 % LA Diameter 3.1 cm LA Width 2.8 cm LA Height 5.5 cm RA Width 3.3 cm RA Height 3.9 cm Aorta at Sinotubular Diameter 2.9 cm IVC Diameter 1.9 cm M-MODE Aortic Annulus Diameter 3.1 cm LA Ao Ratio MM 1.1 MV E Point Septal Separation 0.3 cm DOPPLER AV Peak Velocity 150.0 cm/s LVOT Peak Velocity 110.0 cm/s AV Area Cont Eq vti 2.8 cm squared AV Area Cont Eq pk 2.3 cm squared MV Peak Velocity 95.0 cm/s MV Area PHT 3.1 cm squared Mitral E to A Ratio 0.8 MV E' Velocity 41.0 cm/s Mitral E to MV E' Ratio 9.9 Mitral E to LV E' Lateral Ratio 9.1 Mitral E to LV E' Septal Ratio 10.9 TV Peak E Velocity 70.0 cm/s PV Peak Velocity 129.0 cm/s RV Acceleration Time 0.1 s RV Ejection Time 0.3 s RV AcT/ET 0.2 FINDINGS Left Ventricle Normal left ventricular size and systolic function, EF 68 %. No regional wall motion abnormalities. Grade I/IV diastolic dysfunction (abnormal relaxation filling pattern), normal to mildly elevated filling pressures. Right Ventricle The right ventricle is normal in size and function. Right Atrium The right atrium is normal in size. Left Atrium Mildly increased left atrial size. Mitral Valve Moderate mitral annular calcification. Aortic Valve Thickened aortic valve. Tricuspid Valve No gross abnormalities noted Pulmonic Valve Pulmonic valve not well visualized. Pericardium Normal pericardium without effusion. Aorta Normal ascending aorta dimension. IVC Inferior vena cava not visualized. CONCLUSIONS Normal left ventricular size and systolic function, EF 68 %. No regional wall motion abnormalities. Grade I/IV diastolic dysfunction (abnormal relaxation filling pattern), normal to mildly elevated filling pressures. Mildly increased left atrial size. Moderate mitral annular calcification. Thickened aortic valve. There is no pericardial effusion. There are no intracardiac masses. Compared to the study from 10/04/2021, there may not be a significant change Dr Rcihard Shafer MD FACC (Electronically Signed) Final Date: 05 May 2023 08:44 S
[2023-05-04 13:02] LABS: LAB Peripheral Smear Sent for Review
[2023-05-04] MEDS: cefepime 1,000 MG in sodium chloride 0.9% (plus) 50 ML 100 MG IV ×2 (13:36→23:15)
[2023-05-04] MEDS: vancomycin 1,000 MG in sodium chloride 0.9% 250 ML 250 MG IV (14:19)
--- NOTE | 2023-05-04 14:49 | PC.NURSE ---
Pt noted to have low BP via automatic cuff of 83/42. Took manual BP and was 78/42. MAP+54. Dr. Ruano notified and ordered 1L bolus IVF and recheck pressure. If pressure is still low, then will send pt to the ICU.
[2023-05-04] MEDS: sodium chloride 0.9% 1,000 ML 999 ML IV (14:59)
--- NOTE | 2023-05-04 16:00 | PC.NURSE ---
1L IVF bolus given with minimal if any improvement. Ptt remains hypotensive with MAP staying at 60 or less. Hospitalist notified and ordered to send pt to ICU for levophed drip.
[2023-05-04] MEDS: pantoprazole DR 40 mg Tablet PO (17:18)
[2023-05-04 19:15] LABS: Partial Thromboplastin Time 55.8 SECONDS (23.9-36.7)
--- NOTE | 2023-05-04 19:26 | PC.NURSE ---
Patient arrived in ICU from [facility] at approximately 1620. BP: 96/46 (map 62), HR: 95, SPO2: 93% on room air, Temp: 97.8. PAtient can answer person, place, and time questions, but is lethargic and seems to have trouble finding the correct answer. Patient has a pressure injury to the coccyx, stage 2. Dressed with covaderm. Bruise to bilateral buttocks. Belongings that came with patient included pajamas, phone service unit operator, and phone.
[2023-05-04] MEDS: lanolin oint 7 gm 1 APPLIC TOPICAL (20:08)
[2023-05-05] VITALS (9 sets, daily range): BP systolic 105–133; BP diastolic 57–68; PULSE 87–112; RESP 12–29; O2SAT 92–95
[2023-05-05 02:18] LABS: Basophils # 0.2 10^3/uL (0.0-0.1); Basophils % 0.5 %; Eosinophils # 0.6 10^3/uL (0.0-0.8); Eosinophils % 1.8 %; Hematocrit 40.5 % (36-47); Lymphocytes # 1.4 10^3/uL (0.8-4.8); Lymphocytes % 4.1 %; Mean Corpuscular HGB Conc 31.1 g/dL (30-55); Mean Corpuscular Hemoglobin 22.2 pg (27-33); Mean Corpuscular Volume 71.3 fl (85-98); Mean Platelet Volume 9.5 fL (7.4-10.4); Monocytes # 1.2 10^3/uL (0.2-0.9); Monocytes % 3.7 %; Neutrophils # 29.01 10^3/uL (1.8-7.7); Neutrophils % 85.8 %; Nucleated Red Blood Cells % 0.1 %; Platelet Count 729 10^3/cmm (157-399); Red Blood Count 5.68 10^6/uL (3.85-5.65); Red Cell Distribution Width 24.6 % (12.1-15.1)
[2023-05-05 02:24] LABS: White Blood Count 33.79 10^3/uL (3.29-11.43)
[2023-05-05 02:33] LABS: Partial Thromboplastin Time 51.7 SECONDS (23.9-36.7)
[2023-05-05 02:40] LABS: Alanine Aminotransferase 22 U/L (0-33); Albumin Level 2.1 g/dL (3.5-5.2); Alkaline Phosphatase 90 U/L (35-105); Aspartate Amino Transferase 53 U/L (0-32); Blood Urea Nitrogen 71 mg/dL (8-23); Calcium 7.9 mg/dL (8.5-10.5); Carbon Dioxide 16 mmol/L (22-29); Chloride 120 mmol/L (98-107); Globulin 2.4 g/dL (1.3-4.6); Glucose 67 mg/dL (65-115); Osmolality Calculated 329 mOsm/kg (285-295); Sodium 150 mmol/L (136-145); Total Bilirubin 0.5 mg/dL (0.15-1.2); Total Protein 4.5 g/dL (6.6-8.7)
[2023-05-05 02:43] LABS: Creatine Phosphokinase 990 U/L (26-192)
[2023-05-05] MEDS: heparin 5,000 unit/mL INJ 1 mL IV (03:10)
[2023-05-05] MEDS: morphine 4 mg/mL SDV 1 mL 2 MG IVP (03:16)
--- NOTE | 2023-05-05 04:50 | PC.NURSE ---
Patient is very disoriented, confused, and restless during this shift. Patient stated to be in pain and requesting pain medication. Patient also aggravated that she's having trouble talking. This nurse attempted to brush hair but matting was too severe and just pulling. Also offered to wash hair and patient stated, We need to focus on me getting stronger right now and not worry about my hair. Patient refused bath but did accept wipe down with bath packs.
[2023-05-05] MEDS: pantoprazole DR 40 mg Tablet PO ×2 (08:17→16:48)
[2023-05-05] MEDS: clopidogrel 75 mg Tablet PO (08:17)
[2023-05-05] MEDS: aspirin 81 mg EC Tablet PO (08:17)
[2023-05-05] MEDS: atorvastatin 40 mg Tablet PO (08:17)
[2023-05-05 09:13] LABS: Partial Thromboplastin Time 59.2 SECONDS (23.9-36.7)
--- NOTE | 2023-05-05 09:26 | XRR_ITS ---
PROCEDURE INFORMATION: Exam: XR Chest Exam date and time: 05/05/2023 9:42 AM Age: 72 years old Clinical indication: Shortness of breath; Additional info: Evalute for pulmonary edema TECHNIQUE: Imaging protocol: Radiologic exam of the chest. Views: 1 view. COMPARISON: CT chest abdpel [id number] 05/04/2023 12:42 PM FINDINGS: Lungs: Unremarkable when allowing for patient rotation and decreased inspiratory effort. No consolidation or overt CHF. Pleural spaces: Unremarkable. No pleural effusion. No pneumothorax. Heart/Mediastinum: Cardiac silhouette appears mildly enlarged on this portable chest. Bones/joints: Unremarkable for age. There is a right-sided PICC line whose tip terminates just above the cavoatrial junction. XR/XR chest 1V portable [id number] IMPRESSION: Mild cardiomegaly otherwise negative chest.
[2023-05-05] MEDS: dextrose 5% 1,000 ML 50 ML IV (09:33)
--- NOTE | 2023-05-05 10:14 | XRR_ITS ---
PROCEDURE INFORMATION: Exam: XR Right Hip Exam date and time: 05/05/2023 10:17 AM Age: 72 years old Clinical indication: Injury or trauma; Fall; Blunt trauma (contusions or hematomas); Right; Hip; Additional info: Evalute for hip fracture TECHNIQUE: Imaging protocol: Radiologic exam of the right hip. Views: 1 view hip with pelvis when performed. COMPARISON: [place] [id number] 05/04/2023 12:42 PM FINDINGS: Limited: Study is technically suboptimal due to patient positioning. Bones/joints: Mild degenerative changes right hip joint consisting of mild joint space narrowing and subchondral sclerosis. No fracture or malalignment. Soft tissues: Unremarkable. XR/XR hip RT 1V wo/w pel [id number] IMPRESSION: Mild degenerative changes right hip joint. No acute bony abnormalities.
[2023-05-05] MEDS: metoprolol tartrate 25 mg Tablet 12.5 MG PO ×2 (11:21→22:24)
[2023-05-05] MEDS: cefepime 1,000 MG in sodium chloride 0.9% (plus) 50 ML 100 MG IV (11:21)
[2023-05-05 16:57] LABS: Partial Thromboplastin Time 51.2 SECONDS (23.9-36.7)
[2023-05-05 17:03] LABS: Alanine Aminotransferase 21 U/L (0-33); Albumin Level 1.8 g/dL (3.5-5.2); Alkaline Phosphatase 89 U/L (35-105); Blood Urea Nitrogen 63 mg/dL (8-23); Calcium 7.9 mg/dL (8.5-10.5); Carbon Dioxide 18 mmol/L (22-29); Chloride 121 mmol/L (98-107); Globulin 3.4 g/dL (1.3-4.6); Glucose 75 mg/dL (65-115); Osmolality Calculated 323 mOsm/kg (285-295); Sodium 148 mmol/L (136-145); Total Bilirubin 0.6 mg/dL (0.15-1.2); Total Protein 5.2 g/dL (6.6-8.7)
[2023-05-05 17:11] LABS: Anion Gap 14.4 (5-19); Aspartate Amino Transferase 43 U/L (0-32); Potassium 5.4 mmol/L (3.5-5.1)
--- NOTE | 2023-05-05 18:47 | P.PN_ITS ---
Subjective Subjective: patient was transferred to ICU yesterday in view of hypotension. However did not eventually require starting pressors. She continues to appear extremely dehydrated. Worsening hypernatremia. WBC persisting at 33.79. Blood culture negative to date. Lower extremity Doppler revealed DVT. Additionally noted to be aspirating with thin consistencies. Medications: Reviewed: Yes Vitals/I&O/Wt Last Vital Signs Temp 97.4 F L 05/04/23 21:00 Pulse 100 05/05/23 16:22 Resp 19 H 05/05/23 16:22 BP 107/60 05/05/23 16:22 Pulse Ox 94 05/05/23 08:19 O2 Del Method Room Air 05/05/23 04:17 O2 Flow Rate 3 05/04/23 12:00 05/05/23 05/05/23 05/05/23 06:59 14:59 22:59 Intake Total 306.18 / 5162.18 223.82 / 223.82 Output Total 650 / 4700 600 / 600 Balance -343.82 / 462.18 -376.18 / -376.18 Weight last 48 hrs Weight 58.967 kg Physical Exam Narrative: General: Acutely ill, grossly dehydrated, dry skin and mucous membranes AO x3 HEENT: PERRLA, pupils bilaterally equal and reactive, pallors not present Chest: Normal vesicular breath sounds, no added sounds CVS: S1-S2 regular, no murmurs, no tachycardia, no gallops, no rubs Abdomen: Soft, nontender, no organomegaly, bowel sounds present Neuro: Does not move a grossly swollen right lower extremity. Has cellulitic appearing changes at the base of her right foot. Tenderness to palpation diffusely over the right leg. Keeps the leg externally rotated. I suspect this is related to pain rather than any focal deficits. Patient does have a prior history of 2 strokes. Extremities: Right lower extremity swollen, erythematous and tender to touch. Urinary Catheter Management: Haskins: Cath Placed During This Visit: yes Reason for Continuing Indwelling Catheter: Accurate Measurement of Urinary Output in Critically Ill Patients Urinary Catheter Date of Insertion: 05/04/23 Urinary Catheter Time of Insertion: 03:00 Data 05/05/23 02:08 05/05/23 16:34 Micro: Microbiology 05/03/23 19:47 Blood Culture - Preliminary Blood NEGATIVE TO DATE 05/03/23 19:47 Blood Culture - Preliminary Blood NEGATIVE TO DATE A&P Assessment and plan (1) Sepsis: Qualifiers: Sepsis type: sepsis due to unspecified organism Sepsis acute organ dysfunction status: with acute organ dysfunction Severe sepsis acute organ dysfunction type: acute renal failure Acute renal failure type: with acute tubular necrosis Severe sepsis shock status: without septic shock Qualified Code(s): A41.9 - Sepsis, unspecified organism; R65.20 - Severe sepsis without septic shock; N17.0 - Acute kidney failure with tubular necrosis (2) Hypotension: (3) Acute renal failure: (4) Polycythemia vera: (5) Thrombocytosis: (6) Cellulitis: (7) Right leg swelling: Plan 72-year-old lady with a past medical history of CVA and polycythemia vera not currently on any treatment presented to the hospital with 3 weeks of progressively worsening weakness generalized fatigue and malaise. She states she has had fevers up to 103 Fahrenheit at home. She has recently been treated with several rounds of antibiotics by her primary care provider for upper respiratory infections # Likely sepsis as evidenced by leukocytosis up to 41,000, reported fevers at home up to 103 Fahrenheit, reported history of recent antibiotic use as outpatient,elevated lactate tachycardia tachypnea and hypotension with endorgan manifestations of acute kidney injury and NSTEMI. Thus far has been afberile since admission. Infectious w/up ongoing, thus far + UA, urine cx pending This was present on admission. Ct chest negative for consolidation. No overt abdominal source DVT noted in right foot , possible cellulitis Patient has cats as pets at home, however denies any recent animal bites. She has athlete's foot which may be a predisposing factor for cellulitis. Also concerned about possible PE, however will hold off on CTA given her acute kidney injury. continue cefepime and vancomycin. # DVT RLE, presumed PE given tachycardia, elevated troponin and tachypnea On heaprin gtt # Leukocytosis, thrombocytosis with a history of polycythemia vera concerning for possible AML : rule out AML and blast crisis by negative peripheral smear and discussion with hematology Will need to start hydroxyurea as outpatient. # Hypernatremia: Change IVF from NS to D5 @ 75 cc/ hr, recheck CMP this evening # NSTEMI EKG showing sinus rhythm with ST depression in leads V2, V4, V5 and V6. No past history of known coronary artery disease. Elevated troponins in the 200 range, downtrending delta at 2 and 6 hours. Patient currently denies any chest pain. Overall clinical picture concerning for NSTEMI versus recent cardiac event which may have been precipitated by thrombocytosis and PV echocardiogram Normal left ventricular size and systolic function, EF 68 %. No ?regional wall motion abnormalities. Grade I/IV diastolic ?dysfunction? Continue aspirin 81 mg p.o. daily and atorvastatin 40 mg daily Holding lisinopril due to LEANA. Add metoprolol 12.5 mg BID May need to consider stress test once improving from acute issues #Acute kidney injury Creatinine at 2.0---> improving to 1.6 today Suspect this is related to ATN from dehydration and hypotension. Patient states she has been too weak to eat, has not had any oral intake in about 3 days. IV fluids to continue Haskins catheter to monitor strict LASHAUN's. #Rhabdomyolysis, continue hydration, recheck CK with a.m. labs. DVT prophylaxis: Currently on a heparin drip which will suffice Full code discussed with patient PUD prophylaxis: Protonix 40 mg daily, patient reports a past history of GI ulcers unable to verify the same at this point. Attestations Medical Necessity Statement*: continued need for iv fluids, na checks, renal function, heparin gtt, monitor for otential bleeding Critical Care Time: The high probability of a clinically significant, sudden or life threatening deterioration of the patient's [renal ID, hematology, cardiovascular, pulmonary ] system(s) required my full and direct attention, intervention and personal m anagement. The critical care time is as shown. This time is in addition to time spent performing any reported procedures but includes the following: [x] Data and vital sign review and interpretation [x] Patient assessment, examination and intervention [x] Documentation [x] Medication orders and management Critical Care Time (min): 70 Coding Level of Care Code Critical Care >/= 30 minutes Diagnoses Sepsis A41.9; R65.20; N17.0 Sepsis type: sepsis due to unspecified organism Sepsis acute organ dysfunction status: with acute organ dysfunction Severe sepsis acute organ dysfunction type: acute renal failure Acute renal failure type: with acute tubular necrosis Severe sepsis shock status: without septic shock Hypotension I95.9 Acute renal failure N17.9 Polycythemia vera D45 Thrombocytosis D75.839 Cellulitis L03.90 Right leg swelling M79.89
[2023-05-05] MEDS: heparin drip 25,000 UNIT/500 ML PREMIX 21.82 UNIT IV (19:13)
[2023-05-05] MEDS: dextrose 50% syringe 50 mL 25 ML IVP (19:35)
[2023-05-05] MEDS: insulin regular-human 10 UNIT in SYRINGE 1 EACH IVP (19:35)
[2023-05-05 19:43] LABS: Glucose Point of Care 69 mg/dL (70-110)
[2023-05-06] VITALS (17 sets, daily range): BP systolic 97–118; BP diastolic 52–65; PULSE 76–100; RESP 20–30; TEMP 36.8; O2SAT 91–95
[2023-05-06] MEDS: cefepime 1,000 MG in sodium chloride 0.9% (plus) 50 ML 100 MG IV ×2 (00:37→12:13)
[2023-05-06 00:47] LABS: Potassium 4.9 mmol/L (3.5-5.1)
[2023-05-06 04:23] LABS: Basophils # 0.1 10^3/uL (0.0-0.1); Basophils % 0.4 %; Eosinophils # 0.9 10^3/uL (0.0-0.8); Eosinophils % 2.7 %; Hematocrit 37.9 % (36-47); Lymphocytes # 1.3 10^3/uL (0.8-4.8); Lymphocytes % 4.1 %; Mean Corpuscular HGB Conc 30.6 g/dL (30-55); Mean Corpuscular Hemoglobin 22.2 pg (27-33); Mean Corpuscular Volume 72.5 fl (85-98); Mean Platelet Volume 9.5 fL (7.4-10.4); Monocytes # 1.2 10^3/uL (0.2-0.9); Monocytes % 3.9 %; Neutrophils # 26.41 10^3/uL (1.8-7.7); Neutrophils % 84.3 %; Nucleated Red Blood Cells % 0.1 %; Platelet Count 666 10^3/cmm (157-399); Red Blood Count 5.23 10^6/uL (3.85-5.65); Red Cell Distribution Width 24.4 % (12.1-15.1)
[2023-05-06 04:39] LABS: White Blood Count 31.36 10^3/uL (3.29-11.43)
[2023-05-06 04:45] LABS: Partial Thromboplastin Time 80.3 SECONDS (23.9-36.7)
[2023-05-06 04:50] LABS: Alanine Aminotransferase 18 U/L (0-33); Albumin Level 1.6 g/dL (3.5-5.2); Alkaline Phosphatase 107 U/L (35-105); Aspartate Amino Transferase 31 U/L (0-32); Blood Urea Nitrogen 57 mg/dL (8-23); Calcium 7.6 mg/dL (8.5-10.5); Carbon Dioxide 18 mmol/L (22-29); Chloride 115 mmol/L (98-107); Glucose 272 mg/dL (65-115); Osmolality Calculated 321 mOsm/kg (285-295); Sodium 143 mmol/L (136-145); Total Bilirubin 0.5 mg/dL (0.15-1.2); Total Protein 4.6 g/dL (6.6-8.7)
[2023-05-06] MEDS: dextrose 5% 1,000 ML 75 ML IV ×2 (04:58→19:29)
--- NOTE | 2023-05-06 10:45 | PC.NURSE ---
Pt was unable to swallow thickened liquids this AM. Morning medications held.
[2023-05-06 12:02] LABS: Partial Thromboplastin Time 77.9 SECONDS (23.9-36.7)
[2023-05-06] MEDS: vancomycin 1,000 MG in sodium chloride 0.9% 250 ML 250 MG IV (12:13)
--- NOTE | 2023-05-06 13:53 | PC.SOCIAL ---
Pg 2 IMM Explained to pt Pg 2 IMM. No questions voiced. Provided pt a copy. Initialed, dated, & timed a copy & placed in chart.
--- NOTE | 2023-05-06 15:37 | PM.PN ---
Subjective Subjective: Afebrile, persisting leukocytosis. Continues to aspirate and choke on even thick liquids. Patient states that she has had swallowing trouble for a while now. Modified barium swallow ordered. Patient made NPO. To be started on PPN today. States that her leg feels slightly better today. She is able to move it a little bit more at the hip and the knee today. hydration improving , more alert today Medications: Reviewed: Yes Vitals/I&O/Wt Last Vital Signs Temp 97.4 F L 05/04/23 21:00 Pulse 100 05/06/23 13:24 Resp 30 H 05/06/23 13:24 BP 112/65 05/06/23 13:24 Pulse Ox 94 05/06/23 13:24 O2 Del Method Room Air 05/05/23 04:17 O2 Flow Rate 3 05/04/23 12:00 05/06/23 05/06/23 05/06/23 06:59 14:59 22:59 Intake Total 896.624 / 1847.111 Output Total 450 / 1050 Balance 446.624 / 797.111 Physical Exam Narrative: General: Acutely ill, hydration status better today HEENT: PERRLA, pupils bilaterally equal and reactive, pallors not present Chest: Normal vesicular breath sounds, no added sounds CVS: S1-S2 regular, no murmurs, no tachycardia, no gallops, no rubs Abdomen: Soft, nontender, no organomegaly, bowel sounds present Neuro: Does not move a grossly swollen right lower extremity. Has cellulitic appearing changes at the base of her right foot. Tenderness to palpation diffusely over the right leg. Keeps the leg externally rotated. I suspect this is related to pain rather than any focal deficits. Patient does have a prior history of 2 strokes. Extremities: Right lower extremity swollen, erythematous and tender to touch however softer compared to prior exams Urinary Catheter Management: Haskins: Cath Placed During This Visit: yes Reason for Continuing Indwelling Catheter: Accurate Measurement of Urinary Output in Critically Ill Patients Urinary Catheter Date of Insertion: 05/04/23 Urinary Catheter Time of Insertion: 03:00 Data 05/06/23 04:08 05/06/23 04:08 A&P Assessment and plan (1) Sepsis: Qualifiers: Sepsis type: sepsis due to unspecified organism Sepsis acute organ dysfunction status: with acute organ dysfunction Severe sepsis acute organ dysfunction type: acute renal failure Acute renal failure type: with acute tubular necrosis Severe sepsis shock status: without septic shock Qualified Code(s): A41.9 - Sepsis, unspecified organism; R65.20 - Severe sepsis without septic shock; N17.0 - Acute kidney failure with tubular necrosis (2) Hypotension: (3) Acute renal failure: (4) Polycythemia vera: (5) Thrombocytosis: (6) Cellulitis: (7) Right leg swelling: Plan 72-year-old lady with a past medical history of CVA and polycythemia vera not currently on any treatment presented to the hospital with 3 weeks of progressively worsening weakness generalized fatigue and malaise. She states she has had fevers up to 103 Fahrenheit at home. She has recently been treated with several rounds of antibiotics by her primary care provider for upper respiratory infections # Likely sepsis as evidenced by leukocytosis up to 41,000, reported fevers at home up to 103 Fahrenheit, reported history of recent antibiotic use as outpatient,elevated lactate tachycardia tachypnea and hypotension with endorgan manifestations of acute kidney injury and NSTEMI. Thus far infectious work-up has been overall unrevealing except for UA with trace leukocyte esterase, 5-10 WBCs. DVT noted in right foot , possible cellulitis additionally of the right foot as upon admission patient has erythema involving the right foot dorsum and plantar aspect. While this could be related to DVT in itself possibility of superadded cellulitis cannot be excluded. Overall foot appears to be improving. Leg is less tense, less tender, patient able to move it at both the hip and the knee currently. Ct chest negative for consolidation, however has had several episodes of aspiration during this admission. Currently made n.p.o. Did not tolerate pur?ed diet or thickened liquids yesterday. No overt abdominal source of infection Continue empiric antibiotic coverage #Suspected persisting leukocytosis is related to leukemoid reaction versus underlying polycythemia vera. Review of peripheral smear without any blast transformation or AML however numerous dysplastic BCs were seen. Trial of broadening empiric coverage from cefepime to meropenem due to nonavailability of urine culture or sputum cultures Check MRSA PCR, plan to discontinue vancomycin if screen negative. Repeat chest x-ray. # DVT RLE, presumed PE given tachycardia, elevated troponin and tachypnea On heaprin gtt currently. Leg is improving. Anticipate transition to full dose Lovenox if kidney function continues to improve. # Leukocytosis, thrombocytosis with a history of polycythemia vera , JAK2 positive: ruled out AML and blast crisis by negative peripheral smear and discussion with hematology Will need to start hydroxyurea as outpatient. # Hypernatremia: improving with hydration on D5. Recheck CMP this afternoon. Hypernatremia suspected to be related to dehydration and volume contraction. Hydration status is improving, however patient unable to tolerate any p.o. intake due to noted aspiration. Modified barium swallow ordered Start TPN today for nutrition and hydration Discussed with patient consideration for PEG should she continue to fail swallow evaluations # Malnutriton: start TPN, monitor for re feeding syndrome, unknown chronicity # NSTEMI EKG showing sinus rhythm with ST depression in leads V2, V4, V5 and V6. No past history of known coronary artery disease. Elevated troponins in the 200 range, downtrending delta at 2 and 6 hours. Patient currently denies any chest pain. Overall clinical picture concerning for NSTEMI versus recent cardiac event which may have been precipitated by thrombocytosis and PV echocardiogram Normal left ventricular size and systolic function, EF 68 %. No ?regional wall motion abnormalities. Grade I/IV diastolic ?dysfunction? Continue aspirin 81 mg p.o. daily and atorvastatin 40 mg daily Holding lisinopril due to LEANA. continue metoprolol 12.5 mg BID May need to consider stress test once improving from acute issues #Acute kidney injury Creatinine at 2.0---> improving to 1.6 Suspect this is related to ATN from dehydration and hypotension and rhabdomyolysis . Patient states she has been too weak to eat, has not had any oral intake in about 3 days. IV fluids to continue Haskins catheter to monitor strict LASHAUN's. #Rhabdomyolysis, continue hydration, recheck CK with a.m. labs. DVT prophylaxis: Currently on a heparin drip which will suffice Full code discussed with patient PUD prophylaxis: Protonix 40 mg daily, patient reports a past history of GI ulcers unable to verify the same at this point. Attestations Medical Necessity Statement*: start TPN, monitor for refeeding syndrome, continue heparin gtt , broaden iv abx coverage Coding Level of Care Code Acute Code for [facility] Fwd Diagnoses Sepsis A41.9; R65.20; N17.0 Sepsis type: sepsis due to unspecified organism Sepsis acute organ dysfunction status: with acute organ dysfunction Severe sepsis acute organ dysfunction type: acute renal failure Acute renal failure type: with acute tubular necrosis Severe sepsis shock status: without septic shock Hypotension I95.9 Acute renal failure N17.9 Polycythemia vera D45 Thrombocytosis D75.839 Cellulitis L03.90 Right leg swelling M79.89
[2023-05-06] MEDS: azithromycin 500 MG in sodium chloride 0.9% 250 ML 250 MG IV (15:59)
[2023-05-06] MEDS: meropenem 1,000 MG in sodium chloride 0.9% (plus) 50 ML 100 MG IV (16:00)
[2023-05-06 16:23] LABS: Alanine Aminotransferase 17 U/L (0-33); Albumin Level 1.6 g/dL (3.5-5.2); Alkaline Phosphatase 85 U/L (35-105); Blood Urea Nitrogen 51 mg/dL (8-23); Calcium 7.8 mg/dL (8.5-10.5); Carbon Dioxide 18 mmol/L (22-29); Chloride 117 mmol/L (98-107); Globulin 3.2 g/dL (1.3-4.6); Glucose 100 mg/dL (65-115); Osmolality Calculated 312 mOsm/kg (285-295); Sodium 144 mmol/L (136-145); Total Bilirubin 0.5 mg/dL (0.15-1.2); Total Protein 4.8 g/dL (6.6-8.7)
[2023-05-06 16:24] LABS: Aspartate Amino Transferase 25 U/L (0-32)
[2023-05-06 18:00] LABS: Partial Thromboplastin Time 69.1 SECONDS (23.9-36.7)
[2023-05-06] MEDS: heparin drip 25,000 UNIT/500 ML PREMIX 19.8 UNIT IV (19:32)
[2023-05-06 20:26] LABS: Glucose Point of Care 121 mg/dL (70-110)
[2023-05-06 23:59] LABS: Partial Thromboplastin Time 69.4 SECONDS (23.9-36.7)
[2023-05-07] VITALS (31 sets, daily range): BP systolic 82–124; BP diastolic 42–73; PULSE 70–100; RESP 16–29; TEMP 36.6–36.9; O2SAT 91–96; BMI 32.6
[2023-05-07 03:31] LABS: Basophils # 0.1 10^3/uL (0.0-0.1); Basophils % 0.5 %; Eosinophils # 1.2 10^3/uL (0.0-0.8); Eosinophils % 4.1 %; Hematocrit 38.9 % (36-47); Lymphocytes # 1.2 10^3/uL (0.8-4.8); Lymphocytes % 4.1 %; Mean Corpuscular HGB Conc 30.8 g/dL (30-55); Mean Corpuscular Volume 71.2 fl (85-98); Mean Platelet Volume 9.4 fL (7.4-10.4); Monocytes # 1.2 10^3/uL (0.2-0.9); Monocytes % 4.1 %; Neutrophils # 24.64 10^3/uL (1.8-7.7); Neutrophils % 82.2 %; Nucleated Red Blood Cells % 0.1 %; Platelet Count 531 10^3/cmm (157-399); Red Blood Count 5.46 10^6/uL (3.85-5.65); Red Cell Distribution Width 24.8 % (12.1-15.1); White Blood Count 29.99 10^3/uL (3.29-11.43)
--- NOTE | 2023-05-07 04:00 | XRR_ITS ---
PROCEDURE INFORMATION: Exam: XR Chest Exam date and time: 05/07/2023 5:38 AM Age: 72 years old Clinical indication: Cough; Patient HX: Possible aspiration. Central line in place. ; Additional info: [employer] for aspiration TECHNIQUE: Imaging protocol: Radiologic exam of the chest. Views: 1 view. COMPARISON: CR XR chest 1V portable [id number] 05/05/2023 9:42 AM FINDINGS: Tubes, catheters and devices: Right-sided PICC line in place. Lungs: Unremarkable. No consolidation. Pleural spaces: Unremarkable. No pleural effusion. No pneumothorax. Heart/Mediastinum: Unremarkable. No cardiomegaly. Bones/joints: Unremarkable. XR/XR chest 1V portable [id number] IMPRESSION: No radiographic evidence of aspiration
[2023-05-07 04:07] LABS: NT Pro B Type Natriuretic Pept 16139 pg/mL (0-125)
[2023-05-07] MEDS: meropenem 1,000 MG in sodium chloride 0.9% (plus) 50 ML 100 MG IV ×2 (04:15→16:29)
[2023-05-07 04:20] LABS: Alanine Aminotransferase 16 U/L (0-33); Albumin Level 1.5 g/dL (3.5-5.2); Alkaline Phosphatase 94 U/L (35-105); Blood Urea Nitrogen 46 mg/dL (8-23); Calcium 7.7 mg/dL (8.5-10.5); Carbon Dioxide 19 mmol/L (22-29); Chloride 114 mmol/L (98-107); Globulin 3.2 g/dL (1.3-4.6); Glucose 94 mg/dL (65-115); Osmolality Calculated 306 mOsm/kg (285-295); Phosphorus 2.5 mg/dL (2.5-4.5); Sodium 142 mmol/L (136-145); Total Bilirubin 0.5 mg/dL (0.15-1.2); Total Protein 4.7 g/dL (6.6-8.7)
[2023-05-07 04:21] LABS: Anion Gap 13.4 (5-19); Aspartate Amino Transferase 22 U/L (0-32); Potassium 4.4 mmol/L (3.5-5.1)
[2023-05-07 06:34] LABS: Partial Thromboplastin Time 63.6 SECONDS (23.9-36.7)
--- NOTE | 2023-05-07 13:22 | PM.PN ---
Subjective Subjective: Afberile, hemodynamically stable. Feels like she is improving today. Leg hurts less. She is much better hydrated today. Leukocytosis and creatinine improving. Still unable to swallow. Started TPN. Medications: Reviewed: Yes Vitals/I&O/Wt Last Vital Signs Temp 97.9 F 05/07/23 08:00 Pulse 96 05/07/23 12:00 Resp 24 H 05/07/23 12:00 BP 107/73 05/07/23 12:00 Pulse Ox 96 05/07/23 12:00 O2 Del Method Room Air 05/07/23 12:00 O2 Flow Rate 3 05/04/23 12:00 05/06/23 05/07/23 05/07/23 22:59 06:59 14:59 Intake Total 1978.059 / 2114.299 670.94 / 2785.239 361.25 / 361.25 Output Total 550 / 550 400 / 950 Balance 1428.059 / 1564.299 270.94 / 1835.239 361.25 / 361.25 Physical Exam Narrative: General: Appears in better spirits today, much better hydrated today HEENT: PERRLA, pupils bilaterally equal and reactive, pallors not present , conducted upper airway sounds Chest: B/L crackles to auscultation B/L CVS: S1-S2 regular, no murmurs, no tachycardia, no gallops, no rubs Abdomen: Soft, nontender, no organomegaly, bowel sounds present Neuro: no focal motor deficits Ext; Right leg is less swollen, cellulitis improving, feels softer, skin less strecthed and shiny Urinary Catheter Management: Haskins: Cath Placed During This Visit: yes Reason for Continuing Indwelling Catheter: Accurate Measurement of Urinary Output in Critically Ill Patients Urinary Catheter Date of Insertion: 05/04/23 Urinary Catheter Time of Insertion: 03:00 Data 05/07/23 02:56 05/07/23 02:56 Micro: Microbiology 05/06/23 16:00 Legionella Urinary Antigen - Final Urine Catheterized Other data: [address] [address] XRay Report Signed Patient: Carol Doaln Unit #: [id number] : 1950 Age/Sex: 72 / F ADM Date: 05/03/23 Loc: ICU Room/Bed: [place] [address]: Jaqueline Ruano MD Ordering Provider/Ordering MD: Bill Ruano MD Date of Service: 05/07/23 Procedure(s): XR chest 1V portable [id number] Accession Number(s): [id number] Report Number: [id number] PROCEDURE INFORMATION: Exam: XR Chest Exam date and time: 05/07/2023 5:38 AM Age: 72 years old Clinical indication: Cough; Patient HX: Possible aspiration. Central line in place. ; Additional info: [employer] for aspiration TECHNIQUE: Imaging protocol: Radiologic exam of the chest. Views: 1 view. COMPARISON: CR XR chest 1V portable [id number] 05/05/2023 9:42 AM FINDINGS: Tubes, catheters and devices: Right-sided PICC line in place. Lungs: Unremarkable. No consolidation. Pleural spaces: Unremarkable. No pleural effusion. No pneumothorax. Heart/Mediastinum: Unremarkable. No cardiomegaly. Bones/joints: Unremarkable. XR/XR chest 1V portable [id number] IMPRESSION: No radiographic evidence of aspiration A&P Assessment and plan (1) Sepsis: Qualifiers: Sepsis type: sepsis due to unspecified organism Sepsis acute organ dysfunction status: with acute organ dysfunction Severe sepsis acute organ dysfunction type: acute renal failure Acute renal failure type: with acute tubular necrosis Severe sepsis shock status: without septic shock Qualified Code(s): A41.9 - Sepsis, unspecified organism; R65.20 - Severe sepsis without septic shock; N17.0 - Acute kidney failure with tubular necrosis (2) Hypotension: (3) Acute renal failure: (4) Polycythemia vera: (5) Thrombocytosis: (6) Cellulitis: (7) Right leg swelling: Plan 72-year-old lady with a past medical history of CVA and polycythemia vera not currently on any treatment presented to the hospital with 3 weeks of progressively worsening weakness generalized fatigue and malaise. She states she has had fevers up to 103 Fahrenheit at home. She has recently been treated with several rounds of antibiotics by her primary care provider for upper respiratory infections # Likely sepsis as evidenced by leukocytosis up to 41,000, reported fevers at home up to 103 Fahrenheit, reported history of recent antibiotic use as outpatient,elevated lactate tachycardia tachypnea and hypotension with endorgan manifestations of acute kidney injury and NSTEMI. Thus far infectious work-up has been overall unrevealing except for UA with trace leukocyte esterase, 5-10 WBCs. DVT noted in right foot , possible cellulitis additionally of the right foot as upon admission patient has erythema involving the right foot dorsum and plantar aspect. While this could be related to DVT in itself possibility of superadded cellulitis cannot be excluded. Overall and leg continues to improve Ct chest negative for consolidation, however has had several episodes of aspiration during this admission. Currently made n.p.o. Did not tolerate pur?ed diet or thickened liquids . MBS pending for tuesday. repeat CXR this morning to assess for aspiration negative . Continue empiric antibiotic coverage #Suspected persisting leukocytosis is related to leukemoid reaction versus underlying polycythemia vera, also contributed by dehydration. CT CAP without consolidation or abdominal source Review of peripheral smear without any blast transformation or AML however numerous dysplastic BCs were seen. Continue empiric abx coverage with meropenem and vancomycin Currently blood cx negtaive Urine cx unable to be taken until yesterday, which will be now from a Haskins cath Check MRSA PCR, plan to discontinue vancomycin if screen negative. # DVT RLE, presumed PE given tachycardia, elevated troponin and tachypnea On heaprin gtt currently---> transition to s/c full dose lovenox today. Leg is improving. No CTA due to LEANA, unlikely o change mgmt with a/c # NSTEMI EKG showing sinus rhythm with ST depression in leads V2, V4, V5 and V6. No past history of known coronary artery disease. Elevated troponins in the 200 range, downtrending delta at 2 and 6 hours. Patient currently denies any chest pain. Overall clinical picture concerning for NSTEMI versus recent cardiac event which may have been precipitated by thrombocytosis and PV ;; aletrantely may be related to PE Echocardiogram Normal left ventricular size and systolic function, EF 68 %. No ?regional wall motion abnormalities. Grade I/IV diastolic ?dysfunction? Continue aspirin 81 mg p.o. daily and atorvastatin 40 mg daily Holding lisinopril due to LEANA. continue metoprolol 12.5 mg BID, may uptitrate if BP allows May need to consider stress test once improving from acute issues # Leukocytosis, thrombocytosis with a history of polycythemia vera , JAK2 positive: ruled out AML and blast crisis by negative peripheral smear and discussion with hematology Will need to start hydroxyurea as outpatient. # Hypernatremia: improved with hydration Hypernatremia suspected to be related to dehydration and volume contraction. Hydration status is improving, however patient unable to tolerate any p.o. intake due to noted aspiration. Modified barium swallow ordered Started TPN today for nutrition and hydration Discussed with patient consideration for PEG should she continue to fail swallow evaluations # hyperkalemia: resolved # [place]: start TPN, monitor for re feeding syndrome, unknown chronicity #Acute kidney injury Creatinine at 2.0---> improving to 1.5 Suspect this is related to ATN from dehydration and hypotension and rhabdomyolysis . Patient states she has been too weak to eat, has not had any oral intake in about 3 days. urine output 950 cc Haskins catheter to monitor strict LASHAUN's. #Rhabdomyolysis, continue hydration, recheck CK with a.m. labs. # Extensive deconditioning due to acute illness ; patient currently needing 3 person assist for sitting upright in bed and pivot to chair. Will likely benefit from ongoing therapy after discharge DVT prophylaxis: Currently on full dose lovenox Full code discussed with patient PUD prophylaxis: Protonix 40 mg daily, patient reports a past history of GI ulcers unable to verify Attestations Medical Necessity Statement*: starting TPN, monitor re feeding syndrome, monitor electrolytes, renal function Coding Level of Care Code Acute Code for Chg Fwd High MDM includes number and complexity of problems actively addressed during encounter, amount and/or complexity of data reviewed/ordered and described risk of complication, morbidity or mortality of management as documented Diagnoses Sepsis A41.9; R65.20; N17.0 Sepsis type: sepsis due to unspecified organism Sepsis acute organ dysfunction status: with acute organ dysfunction Severe sepsis acute organ dysfunction type: acute renal failure Acute renal failure type: with acute tubular necrosis Severe sepsis shock status: without septic shock Hypotension I95.9 Acute renal failure N17.9 Polycythemia vera D45 Thrombocytosis D75.839 Cellulitis L03.90 Right leg swelling M79.89
--- NOTE | 2023-05-07 14:58 | PC.NURSE ---
Seen that pt was in need of some hair care. Applied shampoo cap and let set for a few minutes to soak into hair. Then brushed the mattes out of her hair and braided it to keep it from becoming matted again. Pt tolerated well.
[2023-05-07] MEDS: ipratropium-albuterol 3 mL Neb INHALATION ×2 (15:00→20:16)
[2023-05-07] MEDS: azithromycin 500 MG in sodium chloride 0.9% 250 ML 250 MG IV (15:25)
[2023-05-07] MEDS: enoxaparin 60 mg/0.6 mL Syringe SUBCUT (15:26)
[2023-05-07] MEDS: albumin 12.5 GM/50 ML VIAL IV (17:25)
[2023-05-07] MEDS: pantoprazole DR 40 mg Tablet PO (17:27)
[2023-05-07] MEDS: AA-Dex 5%-20% w/Lytes 1,000 ML with multivitamin inj 10 ML 12 ML IV (19:00)
--- NOTE | 2023-05-07 19:00 | PC.NURSE ---
TPN: On arrival to shift @1900 TPN connected to R. UA PICC and infusing @12ml/hr. TPN scanned for 1900 to indicate medication infusing. TPN to increase by 10ml/hr every 8hrs untill goal of 42ml/hr met. See MAR for titration.
[2023-05-07 19:13] LABS: Glucose Point of Care 81 mg/dL (70-110)
--- NOTE | 2023-05-07 19:14 | PC.NURSE ---
Low BG: Notified Dr. Banks @8250 of low BG, TPN order, and NPO status. New order to add and follow Adult Acute Hypoglycemic Protocol .
[2023-05-07] MEDS: fixodent 39 gm Tube 1 APPLIC DENTAL (19:26)
--- NOTE | 2023-05-07 19:38 | PC.NURSE ---
TPN: On arrival to shift TPN running @12ml/hr to R. PICC line, not scanned on SEP. Per shift report w/ BJ, RN TPN was started on at approximately 1200 05/07/23. Scanned TPN bag @1900- arrival to shift to indicate medication is being infused. TPN to be increased @2000 05/07/23.
[2023-05-07 20:24] LABS: Glucose Point of Care 83 mg/dL (70-110)
[2023-05-08] VITALS (24 sets, daily range): BP systolic 93–116; BP diastolic 50–82; PULSE 72–101; RESP 15–27; TEMP 36.7–37; O2SAT 92–95
[2023-05-08 00:19] LABS: Glucose Point of Care 85 mg/dL (70-110)
[2023-05-08 03:25] LABS: Glucose Point of Care 94 mg/dL (70-110)
[2023-05-08] MEDS: ipratropium-albuterol 3 mL Neb INHALATION ×4 (03:25→20:35)
[2023-05-08] MEDS: meropenem 1,000 MG in sodium chloride 0.9% (plus) 50 ML 100 MG IV ×2 (04:11→16:36)
[2023-05-08 04:24] LABS: Basophils # 0.2 10^3/uL (0.0-0.1); Basophils % 0.5 %; Eosinophils % 3.6 %; Hematocrit 37.3 % (36-47); Lymphocytes # 1.1 10^3/uL (0.8-4.8); Lymphocytes % 3.6 %; Mean Corpuscular HGB Conc 31.4 g/dL (30-55); Mean Corpuscular Hemoglobin 22.3 pg (27-33); Mean Corpuscular Volume 71.2 fl (85-98); Mean Platelet Volume 9.7 fL (7.4-10.4); Monocytes # 1.2 10^3/uL (0.2-0.9); Monocytes % 4.1 %; Neutrophils # 24.14 10^3/uL (1.8-7.7); Neutrophils % 83.2 %; Nucleated Red Blood Cells % 0.1 %; Platelet Count 519 10^3/cmm (157-399); Red Blood Count 5.24 10^6/uL (3.85-5.65); Red Cell Distribution Width 24.9 % (12.1-15.1)
[2023-05-08 04:44] LABS: Alanine Aminotransferase 14 U/L (0-33); Albumin Level 1.5 g/dL (3.5-5.2); Alkaline Phosphatase 98 U/L (35-105); Blood Urea Nitrogen 41 mg/dL (8-23); Calcium 7.9 mg/dL (8.5-10.5); Carbon Dioxide 19 mmol/L (22-29); Chloride 115 mmol/L (98-107); Globulin 3.2 g/dL (1.3-4.6); Glucose 89 mg/dL (65-115); Osmolality Calculated 306 mOsm/kg (285-295); Phosphorus 2.7 mg/dL (2.5-4.5); Sodium 143 mmol/L (136-145); Total Bilirubin 0.6 mg/dL (0.15-1.2); Total Protein 4.7 g/dL (6.6-8.7)
[2023-05-08 04:46] LABS: Anion Gap 13.1 (5-19); Aspartate Amino Transferase 17 U/L (0-32); Potassium 4.1 mmol/L (3.5-5.1)
[2023-05-08 06:43] LABS: Partial Thromboplastin Time 39.1 SECONDS (23.9-36.7)
[2023-05-08 06:45] LABS: Glucose Point of Care 117 mg/dL (70-110)
[2023-05-08] MEDS: atorvastatin 40 mg Tablet PO (09:50)
[2023-05-08] MEDS: pantoprazole DR 40 mg Tablet PO ×2 (09:50→18:10)
[2023-05-08] MEDS: clopidogrel 75 mg Tablet PO (09:50)
[2023-05-08] MEDS: aspirin 81 mg EC Tablet PO (09:50)
[2023-05-08 12:29] LABS: Glucose Point of Care 102 mg/dL (70-110)
[2023-05-08] MEDS: enoxaparin 80 mg/0.8 mL Syringe SUBCUT (12:55)
[2023-05-08] MEDS: vancomycin 1,000 MG in sodium chloride 0.9% 250 ML 250 MG IV (12:55)
--- NOTE | 2023-05-08 14:29 | PC.NURSE ---
report called tranfer to 2nd floor
--- NOTE | 2023-05-08 14:34 | PC.NURSE ---
Patient arrived to med/surg 262 from ICU 8 at 1430.
[2023-05-08] MEDS: azithromycin 500 MG in sodium chloride 0.9% 250 ML 250 MG IV (15:35)
[2023-05-08 18:15] LABS: Glucose Point of Care 124 mg/dL (70-110)
--- NOTE | 2023-05-08 19:14 | P.PN_ITS ---
Subjective Subjective: no acute interim events. Sitting up in chair at bedside. Appears to be swallowing pills better today. Medications: Reviewed: Yes Vitals/I&O/Wt Last Vital Signs Temp 98.1 F 05/08/23 14:57 Pulse 98 05/08/23 15:06 Resp 16 05/08/23 14:57 BP 106/66 05/08/23 14:57 Pulse Ox 93 05/08/23 14:57 O2 Del Method Room Air 05/08/23 14:57 O2 Flow Rate 3 05/04/23 12:00 05/08/23 05/08/23 05/08/23 06:59 14:59 22:59 Intake Total 160.5 / 990.01 399.233 / 471.445 0623 / 1699.233 Output Total 375 / 875 500 / 500 Balance -214.5 / 115.01 399.233 / 399.233 800 / 1199.233 Weight last 48 hrs Weight 78.426 kg Physical Exam Narrative: General: awake, alert , smiling, much more conversant HEENT: PERRLA, pupils bilaterally equal and reactive, pallors not present , conducted upper airway sounds Chest: B/L crackles to auscultation B/L CVS: S1-S2 regular, no murmurs, no tachycardia, no gallops, no rubs Abdomen: Soft, nontender, no organomegaly, bowel sounds present Neuro: no focal motor deficits Ext; Right leg is less swollen, improving Urinary Catheter Management: Haskins: Cath Placed During This Visit: yes Reason for Continuing Indwelling Catheter: Accurate Measurement of Urinary Output in Critically Ill Patients Urinary Catheter Date of Insertion: 05/04/23 Urinary Catheter Time of Insertion: 03:00 Data 05/11/23 05:13 05/11/23 05:13 Micro: Microbiology 05/06/23 16:00 Legionella Urinary Antigen - Final Urine Catheterized Urine Culture - Preliminary Yeast species A&P Assessment and plan (1) Sepsis: Qualifiers: Sepsis type: sepsis due to unspecified organism Sepsis acute organ dysfunction status: with acute organ dysfunction Severe sepsis acute organ dysfunction type: acute renal failure Acute renal failure type: with acute tubular necrosis Severe sepsis shock status: without septic shock Qualified Code(s): A41.9 - Sepsis, unspecified organism; R65.20 - Severe sepsis without septic shock; N17.0 - Acute kidney failure with tubular necrosis (2) Hypotension: (3) Acute renal failure: (4) Polycythemia vera: (5) Thrombocytosis: (6) Cellulitis: (7) Right leg swelling: Plan 72-year-old lady with a past medical history of CVA and polycythemia vera not currently on any treatment presented to the hospital with 3 weeks of progressively worsening weakness generalized fatigue and malaise. She states she has had fevers up to 103 Fahrenheit at home. She has recently been treated with several rounds of antibiotics by her primary care provider for upper respiratory infections # Likely sepsis , now improving Thus far infectious work-up has been overall unrevealing except for UA with trace leukocyte esterase, 5-10 WBCs. DVT noted in right foot , possible cellulitis additionally. Continue Abx Ct chest negative for consolidation, however has had several episodes of aspiration during this admission. #Suspected persisting leukocytosis is related to leukemoid reaction versus underlying polycythemia vera, also contributed by dehydration. Currently blood cx negtaive Urine cx pending Check MRSA PCR, plan to discontinue vancomycin if screen negative. # DVT RLE, presumed PE given tachycardia, elevated troponin and tachypnea continue full dose lovenox Leg is improving. No CTA due to LEANA, unlikely o change mgmt with a/c # NSTEMI EKG showing sinus rhythm with ST depression in leads V2, V4, V5 and V6. Overall clinical picture concerning for NSTEMI versus recent cardiac event which may have been precipitated by thrombocytosis and PV ;; alternately may be related to PE Echocardiogram Normal left ventricular size and systolic function, EF 68 %. No ?regional wall motion abnormalities. Grade I/IV diastolic ?dysfunction? Continue aspirin 81 mg p.o. daily and atorvastatin 40 mg daily Holding lisinopril due to LEANA. continue metoprolol 12.5 mg BID May need to consider stress test once improving from acute issues # Leukocytosis, thrombocytosis with a history of polycythemia vera , JAK2 positive: ruled out AML and blast crisis by negative peripheral smear and discussion with hematology Will need to start hydroxyurea as outpatient. # Hypernatremia: improved with hydration Hypernatremia suspected to be related to dehydration and volume contraction. Hydration status is improving, however patient unable to tolerate any p.o. intake due to noted aspiration. Modified barium swallow ordered continue TPN # Hyperkalemia: resolved # Malnutriton: start TPN, monitor for re feeding syndrome, unknown chronicity #Acute kidney injury Creatinine at 2.0---> improving to 1.5 Suspect this is related to ATN from dehydration and hypotension and rhabdo myolysis . Patient states she has been too weak to eat, has not had any oral intake in about 3 days. urine output 950 cc Haskins catheter to monitor strict LASHAUN's. #Rhabdomyolysis, continue hydration, recheck CK with a.m. labs. # Extensive deconditioning due to acute illness ; patient currently needing 3 person assist for sitting upright in bed and pivot to chair. Will likely benefit from ongoing therapy after discharge DVT prophylaxis: Currently on full dose lovenox Full code discussed with patient PUD prophylaxis: Protonix 40 mg daily, patient reports a past history of GI ulcers unable to verify Attestations Medical Necessity Statement*: pending MBS, anticoagulation, disposition planning Coding Level of Care Code Acute Code for Chg Fwd Diagnoses Sepsis A41.9; R65.20; N17.0 Sepsis type: sepsis due to unspecified organism Sepsis acute organ dysfunction status: with acute organ dysfunction Severe sepsis acute organ dysfunction type: acute renal failure Acute renal failure type: with acute tubular necrosis Severe sepsis shock status: without septic shock Hypotension I95.9 Acute renal failure N17.9 Polycythemia vera D45 Thrombocytosis D75.839 Cellulitis L03.90 Right leg swelling M79.89
[2023-05-08 20:57] LABS: Glucose Point of Care 116 mg/dL (70-110)
[2023-05-09] VITALS (14 sets, daily range): BP systolic 93–112; BP diastolic 57–66; PULSE 78–112; RESP 16–25; TEMP 36.6–37.6; O2SAT 94–98
[2023-05-09 04:49] LABS: Basophils # 0.1 10^3/uL (0.0-0.1); Basophils % 0.4 %; Eosinophils # 0.9 10^3/uL (0.0-0.8); Eosinophils % 3.2 %; Hematocrit 37.6 % (36-47); Lymphocytes # 1.1 10^3/uL (0.8-4.8); Lymphocytes % 3.6 %; Mean Corpuscular HGB Conc 30.1 g/dL (30-55); Mean Corpuscular Hemoglobin 21.7 pg (27-33); Mean Corpuscular Volume 72.3 fl (85-98); Mean Platelet Volume 10.1 fL (7.4-10.4); Monocytes # 1.3 10^3/uL (0.2-0.9); Monocytes % 4.5 %; Neutrophils # 24.54 10^3/uL (1.8-7.7); Neutrophils % 84.1 %; Nucleated Red Blood Cells % 0.1 %; Platelet Count 529 10^3/cmm (157-399); Red Cell Distribution Width 25.1 % (12.1-15.1)
[2023-05-09] MEDS: meropenem 1,000 MG in sodium chloride 0.9% (plus) 50 ML 100 MG IV ×2 (05:33→17:16)
[2023-05-09] MEDS: AA-Dex 5%-20% w/Lytes 1,000 ML with multivitamin inj 10 ML 42 ML IV (05:36)
[2023-05-09 06:44] LABS: Alanine Aminotransferase 12 U/L (0-33); Albumin Level 1.7 g/dL (3.5-5.2); Alkaline Phosphatase 91 U/L (35-105); Anion Gap 9.3 (5-19); Aspartate Amino Transferase 15 U/L (0-32); Blood Urea Nitrogen 41 mg/dL (8-23); Carbon Dioxide 19 mmol/L (22-29); Chloride 119 mmol/L (98-107); Globulin 2.8 g/dL (1.3-4.6); Glucose 134 mg/dL (65-115); Osmolality Calculated 310 mOsm/kg (285-295); Potassium 3.3 mmol/L (3.5-5.1); Sodium 144 mmol/L (136-145); Total Bilirubin 0.5 mg/dL (0.15-1.2); Total Protein 4.5 g/dL (6.6-8.7)
[2023-05-09 07:01] LABS: Glucose Point of Care 116 mg/dL (70-110)
[2023-05-09] MEDS: ipratropium-albuterol 3 mL Neb INHALATION ×3 (07:23→19:30)
[2023-05-09 12:11] LABS: Glucose Point of Care 118 mg/dL (70-110)
--- NOTE | 2023-05-09 12:46 | PC.SOCIAL ---
IMM Update pg 2 of IMM updated and reviewed w/ patient. Copy provided and Copy dated, initialed and placed in chart.
[2023-05-09] MEDS: enoxaparin 80 mg/0.8 mL Syringe SUBCUT (13:52)
[2023-05-09 15:15] LABS: Methicillin-Resist S.aureu PCR NOT DETECTED (NOT DETECTED)
--- NOTE | 2023-05-09 15:35 | FL_ITS ---
WS: [id number] Exam: FL barium swallow modifd [id number] Date/Time of Exam: 05/09/2023 2:18 PM Reason For Exam: Oropharyngeal dysphagia Fluoroscopy time: 2min [id number] minutes # of spot films: Modified barium swallow was performed in conjunction with the speech therapy service. The patient experienced significant difficulty swallowing during the oropharyngeal phase. Specificall y elevating the tongue to the hard palate to initiate swallowing was limited. The patient demonstrate d mild penetration into the laryngeal inlet when ingesting thin liquid and nectar consistency liquid barium foodstuffs. The patient tolerated solid barium mixture foodstuffs without difficulty. The urban ent swallowed a barium tablet without difficulty. No aspiration was observed. IMPRESSION: 1. Significant swallowing dysfunction at the level of the oropharynx as discussed above. 2. The patient experienced penetration into the laryngeal inlet when swallowing thin liquid and necta r consistency barium foodstuffs.
--- NOTE | 2023-05-09 15:50 | P.PN_ITS ---
Subjective Subjective: Patient was seen this morning, she is alert to person, to place, she follows commands, she has no complaints of shortness of breath, does report a dry mouth, no trouble swallowing, no abdominal pain, no diarrhea, she does report intermittent shortness of breath, no chest pain Vitals/I&O/Wt Last Vital Signs Temp 98.0 F 05/09/23 11:13 Pulse 99 05/09/23 13:11 Resp 16 05/09/23 13:11 BP 112/66 05/09/23 11:13 Pulse Ox 95 05/09/23 13:11 O2 Del Method Room Air 05/09/23 13:11 O2 Flow Rate 3 05/04/23 12:00 05/09/23 05/09/23 05/09/23 06:59 14:59 22:59 Intake Total 509.334 / 2487.500 Output Total 550 / 1050 Balance -40.666 / 1437.500 Weight last 48 hrs Weight 78.426 kg Physical Exam Const: COMMON NORMALS: no acute distress and patient oriented x3 Resp: COMMON NORMALS: normal respiratory effort, No retractions, No use of accessory muscles and clear to auscultation bilaterally AUSCULTATION: clear to auscultation bilaterally Cardio: COMMON NORMALS: regular rate, regular rhythm, S1 normal heart sound present and S2 normal heart sound present RATE: regular rate RHYTHM: regular rhythm HEART SOUNDS: S1 normal heart sound present and S2 normal heart sound present GI: COMMON NORMALS: Normal to inspection, nondistended, normoactive bowel sounds present and non-tender Extremity: COMMON NORMALS: no pedal edema Neuro: COMMON NORMALS: patient oriented x3 Psych: COMMON NORMALS: mental status grossly normal Urinary Catheter Management: Haskins: Cath Placed During This Visit: yes Reason for Continuing Indwelling Catheter: Accurate Measurement of Urinary Output in Critically Ill Patients Urinary Catheter Date of Insertion: 05/04/23 Urinary Catheter Time of Insertion: 03:00 Data 05/09/23 03:01 05/09/23 06:06 Micro: Microbiology 05/03/23 19:47 Blood Culture - Final Blood NO GROWTH AFTER 5 DAYS 05/03/23 19:47 Blood Culture - Final Blood NO GROWTH AFTER 5 DAYS A&P Assessment and plan (1) Sepsis: Qualifiers: Acute renal failure type: with acute tubular necrosis Sepsis acute organ dysfunction status: with acute organ dysfunction Sepsis type: sepsis due to unspecified organism Severe sepsis acute organ dysfunction type: acute renal failure Severe sepsis shock status: without septic shock Qualified Code(s): A41.9 - Sepsis, unspecified organism; R65.20 - Severe sepsis without septic shock; N17.0 - Acute kidney failure with tubular necrosis (2) Hypotension: (3) Acute renal failure: (4) Polycythemia vera: (5) Thrombocytosis: (6) Cellulitis: (7) Right leg swelling: Plan 72-year-old lady with a past medical history of CVA and polycythemia vera not currently on any treatment presented to the hospital with 3 weeks of progressively worsening weakness generalized fatigue and malaise. She states she has had fevers up to 103 Fahrenheit at home. She has recently been treated with several rounds of antibiotics by her primary care provider for upper respiratory infections #Failed swallow elevation, will undergo modified barium swallow today, currently PICC line in place, receiving TPN # leukocytosis up to 30,000 , likely secondary to aspiration,dvt, possible pe reported history of recent antibiotic use as outpatient,elevated lactate tachycardia tachypnea and hypotension with endorgan manifestations of acute kidney injury and NSTEMI. Thus far infectious work-up has been overall unrevealing except for UA with trace leukocyte esterase, 5-10 WBCs. DVT noted in right foot , possible cellulitis additionally of the right foot as upon admission patient has erythema involving the right foot dorsum and plantar aspect. Overall and leg continues to improve Ct chest negative for consolidation, however has had several episodes of aspiration during this admission. Continue empiric antibiotic coverage #Suspected persisting leukocytosis is related to leukemoid reaction versus underlying polycythemia vera, also contributed by dehydration and aspiration CT CAP without consolidation or abdominal source Review of peripheral smear without any blast transformation or AML however numerous dysplastic BCs were seen. Continue empiric abx coverage with meropenem and vancomycin Currently blood cx negtaive Urine cx unable to be taken until yesterday, which will be now from a Haskins cath Check MRSA PCR, plan to discontinue vancomycin if screen negative. # DVT RLE, presumed PE given tachycardia, elevated troponin and tachypnea on therapeutic lovenox Leg is improving. No CTA due to LEANA, unlikely o change mgmt with a/c # NSTEMI, likely type 2 secondary to dvt/and or pe EKG showing sinus rhythm with ST depression in leads V2, V4, V5 and V6. No past history of known coronary artery disease. Elevated troponins in the 200 range, downtrending delta at 2 and 6 hours. Patient currently denies any chest pain. Overall clinical picture concerning for NSTEMI versus recent cardiac event which may have been precipitated by thrombocytosis and PV ;; aletrantely may be related to PE Echocardiogram Normal left ventricular size and systolic function, EF 68 %. No ?regional wall motion abnormalities. Grade I/IV diastolic ?dysfunction? Continue aspirin 81 mg p.o. daily and atorvastatin 40 mg daily Holding lisinopril due to LEANA. continue metoprolol 12.5 mg BID, may uptitrate if BP allows May need to consider stress test once improving from acute issues # Leukocytosis, thrombocytosis with a history of polycythemia vera , JAK2 positive: ruled out AML and blast crisis by negative peripheral smear and discussion with hematology Will need to start hydroxyurea as outpatient. # Hypernatremia: resolved Hypernatremia suspected to be related to dehydration and volume contraction. Hydration status is improving, however patient unable to tolerate any p.o. intake due to noted aspiration. Modified barium swallow ordered Started TPN today for nutrition and hydration Discussed with patient consideration for PEG should she continue to fail swallow evaluations # hyperkalemia: resolved # Malnutriton: start TPN, monitor for re feeding syndrome, unknown chronicity #Acute kidney injury Creatinine at 2.0---> improving to 1.5 Suspect this is related to ATN from dehydration and hypotension and rhabdomyolysis . Patient states she has been too weak to eat, has not had any oral intake in about 3 days. urine output 950 cc Haskins catheter to monitor strict LASHAUN's. #Rhabdomyolysis, # Extensive deconditioning due to acute illness ; patient currently needing 3 pe rson assist for sitting upright in bed and pivot to chair. Will likely benefit from ongoing therapy after discharge DVT prophylaxis: Currently on full dose lovenox Full code discussed with patient PUD prophylaxis: Protonix 40 mg daily, patient reports a past history of GI ulcers unable to verify plan for today Will do modified barium swallow, advance diet as tolerated, based on results, continue antibiotic therapy, up out of bed, PT OT, continue therapeutic Lovenox, will transition to Eliquis tomorrow, Attestations Medical Necessity Statement*: patient Requires hospitalization for DVT, requiring therapeutic Lovenox, NSTEMI, with persistent leukocytosis, concerns for aspiration pneumonitis, aspiration pneumonia, requiring modified barium swallow, aspiration precautions, speech therapy eval, Diagnoses Sepsis A41.9; R65.20; N17.0 Acute renal failure type: with acute tubular necrosis Sepsis acute organ dysfunction status: with acute organ dysfunction Sepsis type: sepsis due to unspecified organism Severe sepsis acute organ dysfunction type: acute renal failure Severe sepsis shock status: without septic shock Hypotension I95.9 Acute renal failure N17.9 Polycythemia vera D45 Thrombocytosis D75.839 Cellulitis L03.90 Right leg swelling M79.89
[2023-05-09] MEDS: azithromycin 500 MG in sodium chloride 0.9% 250 ML 250 MG IV (15:52)
[2023-05-09 16:56] LABS: Glucose Point of Care 116 mg/dL (70-110)
[2023-05-09] MEDS: pantoprazole DR 40 mg Tablet PO (17:21)
[2023-05-09 21:02] LABS: Glucose Point of Care 115 mg/dL (70-110)
--- NOTE | 2023-05-09 21:21 | PC.NURSE ---
This nurse was assessing patients vital signs before administration of scheduled 2100 metoprolol, patients bp was 96/58 and heart rate 101 bmp. This nurse notified . Dr Peres gave voalte message order to hold this dose. No other concerns at this time.
[2023-05-09 23:36] LABS: Glucose Point of Care 133 mg/dL (70-110)
[2023-05-09] MEDS: ondansetron 2 mg/ML SDV 2 mL 4 MG IVP (23:36)
[2023-05-10] VITALS (17 sets, daily range): BP systolic 92–101; BP diastolic 48–63; PULSE 87–103; RESP 16–26; TEMP 36.4–36.8; O2SAT 93–98
--- NOTE | 2023-05-10 00:05 | PC.NURSE ---
Patient c/o new onset SOB and light headedness, this nurse assessed patients vital signs to reveal bp 98/48 respiratory rate of 26, this nurse notified Dr. Peres of concerns of patients status and patient having known DVT's. No new orders at this time. No further concerns at this time.
--- NOTE | 2023-05-10 01:11 | PC.NURSE ---
pt care this nurse took over care of this pt at this time.
[2023-05-10] MEDS: ipratropium-albuterol 3 mL Neb INHALATION ×4 (01:26→19:36)
[2023-05-10] MEDS: meropenem 1,000 MG in sodium chloride 0.9% (plus) 50 ML 100 MG IV (03:45)
[2023-05-10 05:27] LABS: Basophils # 0.1 10^3/uL (0.0-0.1); Basophils % 0.3 %; Eosinophils # 1.1 10^3/uL (0.0-0.8); Eosinophils % 3.8 %; Hematocrit 34.6 % (36-47); Lymphocytes # 1.2 10^3/uL (0.8-4.8); Lymphocytes % 3.9 %; Mean Corpuscular HGB Conc 31.5 g/dL (30-55); Mean Corpuscular Hemoglobin 22.2 pg (27-33); Mean Corpuscular Volume 70.6 fl (85-98); Mean Platelet Volume 9.9 fL (7.4-10.4); Monocytes # 1.3 10^3/uL (0.2-0.9); Monocytes % 4.4 %; Neutrophils # 24.74 10^3/uL (1.8-7.7); Neutrophils % 83.3 %; Nucleated Red Blood Cells % 0.1 %; Platelet Count 537 10^3/cmm (157-399); Red Cell Distribution Width 25.2 % (12.1-15.1); White Blood Count 29.71 10^3/uL (3.29-11.43)
[2023-05-10 05:50] LABS: Alanine Aminotransferase 13 U/L (0-33); Albumin Level 1.7 g/dL (3.5-5.2); Alkaline Phosphatase 112 U/L (35-105); Aspartate Amino Transferase 26 U/L (0-32); Blood Urea Nitrogen 43 mg/dL (8-23); Calcium 7.9 mg/dL (8.5-10.5); Carbon Dioxide 19 mmol/L (22-29); Chloride 114 mmol/L (98-107); Globulin 2.8 g/dL (1.3-4.6); Glucose 116 mg/dL (65-115); Osmolality Calculated 298 mOsm/kg (285-295); Phosphorus 2.6 mg/dL (2.5-4.5); Sodium 138 mmol/L (136-145); Total Bilirubin 0.4 mg/dL (0.15-1.2); Total Protein 4.5 g/dL (6.6-8.7)
[2023-05-10 05:53] LABS: Anion Gap 8.5 (5-19); Potassium 3.5 mmol/L (3.5-5.1)
[2023-05-10 06:05] LABS: Glucose Point of Care 132 mg/dL (70-110)
[2023-05-10] MEDS: AA-Dex 5%-20% w/Lytes 1,000 ML with multivitamin inj 10 ML 42 ML IV (07:55)
[2023-05-10] MEDS: clopidogrel 75 mg Tablet PO (08:02)
[2023-05-10] MEDS: metoprolol tartrate 25 mg Tablet 12.5 MG PO ×2 (08:02→21:17)
[2023-05-10] MEDS: atorvastatin 40 mg Tablet PO (08:02)
[2023-05-10] MEDS: pantoprazole DR 40 mg Tablet PO ×2 (08:02→17:02)
[2023-05-10] MEDS: aspirin 81 mg EC Tablet PO (08:02)
--- NOTE | 2023-05-10 09:24 | PC.NURSE ---
Per Dr. Ross decrease TPN 10 ml q 8 hours and advance diet as tolerated
[2023-05-10] MEDS: fluconazole premix 100 MG in empty flexible container 1 EACH 50 MG IV (09:52)
[2023-05-10] MEDS: apixaban 5 mg Tablet 10 MG PO ×2 (09:58→21:17)
--- NOTE | 2023-05-10 09:59 | PC.NURSE ---
started decrease to 32 ml/ hr TPN @ 10am
[2023-05-10 11:19] LABS: Glucose Point of Care 115 mg/dL (70-110)
[2023-05-10] MEDS: doxycycline 100 mg Tablet PO (17:02)
[2023-05-10 17:19] LABS: Glucose Point of Care 129 mg/dL (70-110)
--- NOTE | 2023-05-10 17:44 | P.PN_ITS ---
Subjective Subjective: Patient was seen this morning, she is tolerating dysphagia diet well, no nausea, no vomiting, no fevers, no chills, she does complain of a sacral DTI With the help of nursing staff, patient was taken up out of chair, into bed, rolled over to the side, sacral DTI, between gluteal cleft, measuring 2 x 2 cm, with open excoriation, active drainage, I discussed this with the patient this is likely her source of persistent leukocytosis, will have to keep offloading, wound care, as a high risk of tunneling and deep tissue infection, high risk of cross-contamination with stool, left keep it clean and dry, she voices understanding, Patient tells me that she has a long history of persistent leukocytosis has been evaluated by multiple doctors, she tells me that the surgeon also operated to her on the past with her elevated white count and had no problems, with that Vitals/I&O/Wt Last Vital Signs Temp 98.0 F 05/10/23 16:00 Pulse 101 H 05/10/23 16:00 Resp 19 H 05/10/23 16:00 BP 92/53 05/10/23 16:00 Pulse Ox 94 05/10/23 16:00 O2 Del Method Room Air 05/10/23 16:00 O2 Flow Rate 3 05/04/23 12:00 05/10/23 05/10/23 05/10/23 06:59 14:59 22:59 Intake Total 1010 / 1790 770 / 770 Output Total 350 / 650 Balance 660 / 1140 770 / 770 Physical Exam Const: COMMON NORMALS: no acute distress and patient oriented x3 Resp: COMMON NORMALS: normal respiratory effort, No retractions, No use of accessory muscles and clear to auscultation bilaterally AUSCULTATION: clear to auscultation bilaterally Cardio: COMMON NORMALS: regular rate, regular rhythm, S1 normal heart sound present and S2 normal heart sound present RATE: regular rate RHYTHM: regular rhythm HEART SOUNDS: S1 normal heart sound present and S2 normal heart sound present GI: COMMON NORMALS: Normal to inspection, nondistended, normoactive bowel sounds present and non-tender Extremity: COMMON NORMALS: no pedal edema Neuro: COMMON NORMALS: patient oriented x3 Psych: COMMON NORMALS: mental status grossly normal Urinary Catheter Management: Haskins: Cath Placed During This Visit: yes Reason for Continuing Indwelling Catheter: Acute Urinary Retention or Obstruct ion Urinary Catheter Date of Insertion: 05/04/23 Urinary Catheter Time of Insertion: 03:00 Data 05/10/23 04:57 05/10/23 04:57 A&P Assessment and plan (1) Sepsis: Qualifiers: Sepsis type: sepsis due to unspecified organism Sepsis acute organ dysfunction status: with acute organ dysfunction Severe sepsis acute organ dysfunction type: acute renal failure Acute renal failure type: with acute tubular necrosis Severe sepsis shock status: without septic shock Qualified Code(s): A41.9 - Sepsis, unspecified organism; R65.20 - Severe sepsis without septic shock; N17.0 - Acute kidney failure with tubular necrosis (2) Hypotension: (3) Acute renal failure: (4) Polycythemia vera: (5) Thrombocytosis: (6) Cellulitis: (7) Right leg swelling: Plan 72-year-old lady with a past medical history of CVA and polycythemia vera not currently on any treatment presented to the hospital with 3 weeks of progressively worsening weakness generalized fatigue and malaise. She states she has had fevers up to 103 Fahrenheit at home. She has recently been treated with several rounds of antibiotics by her primary care provider for upper respiratory infections #Failed swallow elevation -IMPRESSION: 1. Significant swallowing dysfunction at the level of the oropharynx as discussed above. 2. The patient experienced penetration into the laryngeal inlet when swallowing thin liquid and nectar consistency barium foodstuffs. -Currently on dysphagia diet, advance as tolerated, speech therapy eval -We will wean off peripheral nutrition #Sacral DTI ? We will keep offloading ? Keep area clean and dry ?, Wound care ?, Continue doxycycline, ? This is likely the source of her persistent leukocytosis # leukocytosis up to 30,000 , likely secondary to aspiration,dvt, possible pe, now with evidence of sacral DTI reported history of recent antibiotic use as outpatient,elevated lactate tachycardia tachypnea and hypotension with endorgan manifestations of acute kidney injury and NSTEMI. Thus far infectious work-up has been overall unrevealing except for UA with trace leukocyte esterase, 5-10 WBCs. DVT noted in right foot , possible cellulitis additionally of the right foot as upon admission patient has erythema involving the right foot dorsum and plantar aspect. Overall and leg continues to improve Ct chest negative for consolidation, however has had several episodes of aspiration during this admission. # DVT RLE, presumed PE given tachycardia, elevated troponin and tachypnea Transition to Eliquis Leg is improving. No CTA due to LEANA, unlikely o change mgmt with a/c # NSTEMI, likely type 2 secondary to dvt/and or pe EKG showing sinus rhythm with ST depression in leads V2, V4, V5 and V6. No past history of known coronary artery disease. Elevated troponins in the 200 range, downtrending delta at 2 and 6 hours. Patient currently denies any chest pain. Overall clinical picture concerning for NSTEMI versus recent cardiac event which may have been precipitated by thrombocytosis and PV ;; aletrantely may be related to PE Echocardiogram Normal left ventricular size and systolic function, EF 68 %. No ?regional wall motion abnormalities. Grade I/IV diastolic ?dysfunction? Continue aspirin 81 mg p.o. daily and atorvastatin 40 mg daily Holding lisinopril due to LEANA. continue metoprolol 12.5 mg BID, may uptitrate if BP allows May need to consider stress test once improving from acute issues # Leukocytosis, thrombocytosis with a history of polycythemia vera , JAK2 positive: ruled out AML and blast crisis by negative peripheral smear and discussion with hematology # Hypernatremia: resolved Hypernatremia suspected to be related to dehydration and volume contraction. Hydration status is improving, however patient unable to tolerate any p.o. intake due to noted aspiration. Modified barium swallow ordered Started TPN today for nutrition and hydration Discussed with patient consideration for PEG should she continue to fail swallow evaluations # hyperkalemia: resolved # Mal[place]: start TPN, monitor for re feeding syndrome, unknown chronicity #Acute kidney injury Creatinine at 2.0---> improving to 1.5 Suspect this is related to ATN from dehydration and hypotension and rhabdo myolysis . Patient states she has been too weak to eat, has not had any oral intake in about 3 days. urine output 950 cc Haskins catheter to monitor strict LASHAUN's. #Rhabdomyolysis, # Extensive deconditioning due to acute illness ; patient currently needing 3 person assist for sitting upright in bed and pivot to chair. Will likely benefit from ongoing therapy after discharge DVT prophylaxis: Currently on full dose lovenox Full code discussed with patient PUD prophylaxis: Protonix 40 mg daily, patient reports a past history of GI ulcers unable to verify plan for today wean off peripheral nutrition, encourage p.o. intake, dysphagia diet, sacral DTI, antibiotics, offloading, wound care, Attestations Medical Necessity Statement*: Patient requires hospitalization for persistent leukocytosis, sacral DTI, dysphagia, Diagnoses Sepsis A41.9; R65.20; N17.0 Sepsis type: sepsis due to unspecified organism Sepsis acute organ dysfunction status: with acute organ dysfunction Severe sepsis acute organ dysfunction type: acute renal failure Acute renal failure type: with acute tubular necrosis Severe sepsis shock status: without septic shock Hypotension I95.9 Acute renal failure N17.9 Polycythemia vera D45 Thrombocytosis D75.839 Cellulitis L03.90 Right leg swelling M79.89
[2023-05-10 20:25] LABS: Glucose Point of Care 113 mg/dL (70-110)
[2023-05-10 23:18] LABS: Glucose Point of Care 120 mg/dL (70-110)
[2023-05-11] VITALS (9 sets, daily range): BP systolic 90–108; BP diastolic 48–63; PULSE 83–101; RESP 16–20; TEMP 36.1–36.4; O2SAT 95–96
[2023-05-11] MEDS: ipratropium-albuterol 3 mL Neb INHALATION ×3 (03:25→13:52)
[2023-05-11 05:43] LABS: Basophils # 0.1 10^3/uL (0.0-0.1); Basophils % 0.4 %; Eosinophils # 1.2 10^3/uL (0.0-0.8); Hematocrit 35.6 % (36-47); Lymphocytes # 1.2 10^3/uL (0.8-4.8); Lymphocytes % 4.1 %; Mean Corpuscular HGB Conc 30.9 g/dL (30-55); Mean Corpuscular Hemoglobin 22.4 pg (27-33); Mean Corpuscular Volume 72.4 fl (85-98); Mean Platelet Volume 9.9 fL (7.4-10.4); Monocytes # 1.4 10^3/uL (0.2-0.9); Monocytes % 4.5 %; Neutrophils # 24.73 10^3/uL (1.8-7.7); Neutrophils % 83.3 %; Nucleated Red Blood Cells % 0.1 %; Platelet Count 548 10^3/cmm (157-399); Red Blood Count 4.92 10^6/uL (3.85-5.65); Red Cell Distribution Width 25.3 % (12.1-15.1); White Blood Count 29.72 10^3/uL (3.29-11.43)
[2023-05-11 06:09] LABS: Alanine Aminotransferase 15 U/L (0-33); Albumin Level 1.9 g/dL (3.5-5.2); Alkaline Phosphatase 108 U/L (35-105); Anion Gap 13.3 (5-19); Aspartate Amino Transferase 27 U/L (0-32); Blood Urea Nitrogen 48 mg/dL (8-23); Calcium 7.8 mg/dL (8.5-10.5); Carbon Dioxide 17 mmol/L (22-29); Chloride 115 mmol/L (98-107); Creatinine Clr Calc Pharmacy 22.2806; Globulin 2.2 g/dL (1.3-4.6); Glucose 94 mg/dL (65-115); Osmolality Calculated 304 mOsm/kg (285-295); Phosphorus 3.6 mg/dL (2.5-4.5); Potassium 4.3 mmol/L (3.5-5.1); Sodium 141 mmol/L (136-145); Total Bilirubin 0.3 mg/dL (0.15-1.2); Total Protein 4.1 g/dL (6.6-8.7)
[2023-05-11 06:45] LABS: Glucose Point of Care 90 mg/dL (70-110)
[2023-05-11] MEDS: doxycycline 100 mg Tablet PO (09:19)
[2023-05-11] MEDS: apixaban 5 mg Tablet 10 MG PO (09:20)
[2023-05-11] MEDS: atorvastatin 40 mg Tablet PO (09:20)
[2023-05-11] MEDS: fluconazole premix 100 MG in empty flexible container 1 EACH 50 MG IV (09:20)
[2023-05-11] MEDS: pantoprazole DR 40 mg Tablet PO (09:20)
[2023-05-11] MEDS: clopidogrel 75 mg Tablet PO (09:20)
[2023-05-11] MEDS: sodium chloride 0.9% 1,000 ML 75 ML IV (09:21)
[2023-05-11] MEDS: polyethylene glycol 3350 Pkt 17 gm PO (09:39)
--- NOTE | 2023-05-11 10:59 | P.DS_ITS ---
Discharge Providers Date of Admission: 05/03/23 21:28 Date of Discharge: May 11, 2023 Attending Provider at Admission: Collette Banks MD Attending Provider at Discharge: Howard Ross MD Primary Care Provider: JUDY Hughes Diagnoses at Discharge Discharge Diagnosis (1) Sepsis: Status: Acute Qualifiers: Sepsis type: sepsis due to unspecified organism Sepsis acute organ dysfunction status: with acute organ dysfunction Severe sepsis acute organ dysfunction type: acute renal failure Acute renal failure type: with acute tubular necrosis Severe sepsis shock status: without septic shock Qualified Code(s): A41.9 - Sepsis, unspecified organism; R65.20 - Severe sepsis without septic shock; N17.0 - Acute kidney failure with tubular necrosis (2) Hypotension: Status: Acute (3) Acute renal failure: Status: Acute (4) Polycythemia vera: Status: Acute (5) Thrombocytosis: Status: Acute (6) Cellulitis: Status: Acute (7) Right leg swelling: Status: Acute Reason for Visit Reason for Visit: Weakness Hospital Course Hospital Course Carol Dolan is a 72 year old female COPD (chronic obstructive pulmonary disease) CVA (cerebral vascular accident) HTN (hypertension) Leukocytosis Polycythemia vera Sleep apnea Was brought in by EMS for complaint of generalized weakness since 2 to 3 weeks.? She reports she had a high-grade fever 2 weeks ago and was treated by her PCP Dr Farhat Javier for flulike symptoms.? But she did not feel well and has been bedridden with neglected care for the last 2 weeks.? 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 She was able to walk around with a walker 2 weeks ago. She denies any history of chest pain shortness of breath abdominal pain nausea vomiting or urinary complaints.? But reports having severe pain in her lower back and bilateral knees. Patient presented to [facility] -Found to have a right lower extremity DVT, with concerns for likely PE, CT angiogram could not be performed due to elevated creatinine, and CKD, managed on anticoagulant therapy, overall clinically improved, discharged to senior living facility on Eliquis -Found to have NSTEMI, likely secondary to to DVT and or PE, likely type II supply demand ischemia on discharge continue Plavix, statin, I stopped aspirin as with Eliquis as above there is a high risk of bleeding -Patient had concern for sepsis during the hospitalization, likely component of aspiration pneumonia, component of lower extremity cellulitis, requiring IV antibiotics, so far cultures have been unremarkable, overall clinically improved, -Pain persistent leukocytosis likely secondary to sacral DTI and underlying polycythemia vera -sacral DTI, continue offloading, wound care, extensive wound monitoring, I advised patient that I am highly worried about worsening of her sacral DTI, she has to be monitored very closely, continue offloading, antibiotics, -Patient failed swallow evaluation during hospitalization, required peripheral nutrition for a period of time until she has a modified barium swallow -IMPRESSION: 1. Significant swallowing dysfunction at the level of the oropharynx as discussed above. 2. The patient experienced penetration into the laryngeal inlet when swallowing thin liquid and nectar consistency barium foodstuffs. -Currently on dysphagia diet, advance as tolerated, speech therapy eval -We will wean off peripheral nutrition -She was transitioned off peripheral nutrition, to dysphagia level 4 diet, overall tolerated well, no aspiration events -Discharged to senior living facility on dysphagia diet, with instructions to work with speech therapy to advance diet as tolerated, aspiration precautions -Patient had LEANA during the hospitalization, component related to dehydration, rhabdomyolysis, creatinine on discharge is 2.1, she fluctuates between 1.7-2.1, advised to drink plenty electrolyte balanced fluids, and to follow-up with repeat BMP tomorrow Physical Exam Const: COMMON NORMALS: no acute distress and patient oriented x3 Resp: COMMON NORMALS: normal respiratory effort, No retractions, No use of accessory muscles and clear to auscultation bilaterally AUSCULTATION: clear to auscultation bilaterally Cardio: COMMON NORMALS: regular rate, regular rhythm, S1 normal heart sound present and S2 normal heart sound present RATE: regular rate RHYTHM: regular rhythm HEART SOUNDS: S1 normal heart sound present and S2 normal heart sound present GI: COMMON NORMALS: Normal to inspection, nondistended, normoactive bowel sounds present and non-tender Extremity: COMMON NORMALS: no pedal edema Neuro: COMMON NORMALS: patient oriented x3 Psych: COMMON NORMALS: mental status grossly normal Urinary Catheter Management: Haskins: Cath Placed During This Visit: yes Reason for Continuing Indwelling Catheter: Assist healing open wound Urinary Catheter Date of Insertion: 05/04/23 Urinary Catheter Time of Insertion: 03:00 Discharge Data Studies Completed and Pending Completed Studies During Hospitalization Category Date Time Status CT chest abdomen pelvis [[place] [id number] Cat Scan 05/04/23 11:53 Completed ] Routine CT head wo con* [id number] Stat Cat Scan 05/03/23 19:14 Completed CXRP [XR chest 1V portable [id number]] AM LABS Exams 05/07/23 04:00 Completed CXRP [XR chest 1V portable [id number]] Routine Exams 05/04/23 07:34 Completed CXRP [XR chest 1V portable [id number]] Routine Exams 05/05/23 09:26 Completed FL barium swallow modifd [id number] Routine Exams 05/09/23 15:35 Completed XR chest 1V portable [id number] Stat Exams 05/03/23 19:14 Completed XR hip RT 1V wo/[place] 22507 Routine Exams 05/05/23 10:14 [place] [id number] Routine Ultrasound 05/04/23 11:53 Completed CV. echo complete* [id number] Routine Ultrasound 05/04/23 11:53 Completed Pending at discharge Category Date Time Status CA echo doppler complete Routine Exams 05/03/23 23:36 Stop Req Complete Blood Count w/Auto AM LABS Lab 05/12/23 04:00 Ordered Comprehensive Metabolic Panel AM LABS Lab 05/12/23 04:00 Ordered Magnesium AM LABS Lab 05/12/23 04:00 Ordered Phosphorus AM LABS Lab 05/12/23 04:00 Ordered SARS Covid-2 Antigen Routine Lab 05/11/23 08:55 Uncollected Sputum Culture and Gram Stain Routine Lab 05/06/23 15:32 Uncollected Radiology Impressions Head CT 05/03/23 19:14 IMPRESSION: Chronic changes without acute intracranial findings. Hip X-Ray 05/05/23 10:14 IMPRESSION: Mild degenerative changes right hip joint. No acute bony abnormalities. Chest X-Ray 05/07/23 04:00 IMPRESSION: No radiographic evidence of aspiration Laboratory Results WBC 29.72 10^3/uL (3.29-11.43) H 05/11/23 05:13 RBC 4.92 10^6/uL (3.85-5.65) 05/11/23 05:13 Hgb 11.00 g/dL (11.27-16.99) L 05/11/23 05:13 Hct 35.6 % (36-47) L 05/11/23 05:13 MCV 72.4 fl (85-98) L 05/11/23 05:13 MCH 22.4 pg (27-33) L 05/11/23 05:13 MCHC 30.9 g/dL (30-55) 05/11/23 05:13 RDW 25.3 % (12.1-15.1) H 05/11/23 05:13 Plt Count 548 10^3/cmm (157-399) H 05/11/23 05:13 MPV 9.9 fL (7.4-10.4) 05/11/23 05:13 Neut % (Auto) 83.3 % 05/11/23 05:13 Lymph % (Auto) 4.1 % 05/11/23 05:13 [place] % (Auto) 4.5 % 05/11/23 05:13 Eos % (Auto) 4.0 % 05/11/23 05:13 Baso % (Auto) 0.4 % 05/11/23 05:13 Neut # (Auto) 24.73 10^3/uL (1.8-7.7) H 05/11/23 05:13 Lymph # (Auto) 1.2 10^3/uL (0.8-4.8) 05/11/23 05:13 [place] # (Auto) 1.4 10^3/uL (0.2-0.9) H 05/11/23 05:13 Eos # (Auto) 1.2 10^3/uL (0.0-0.8) H 05/11/23 05:13 Baso # (Auto) 0.1 10^3/uL (0.0-0.1) 05/11/23 05:13 Nucleated RBC % (auto) 0.1 % 05/11/23 05:13 Nucleated RBCs # 0.0 /100WBC 05/11/23 05:13 Peripher Smr Path Cons Sent for review 05/04/23 02:14 APTT 39.1 SECONDS (23.9-36.7) H 05/08/23 06:05 Sodium 141 mmol/L (136-145) 05/11/23 05:13 Potassium 4.3 mmol/L (3.5-5.1) 05/11/23 05:13 Chloride 115 mmol/L (98-107) H 05/11/23 05:13 Carbon Dioxide 17 mmol/L (22-29) L 05/11/23 05:13 Anion Gap 13.3 (5-19) 05/11/23 05:13 BUN 48 mg/dL (8-23) H 05/11/23 05:13 Creatinine 2.1 mg/dL (0.5-0.9) H 05/11/23 05:13 GFR Calculation Not Reportable 05/11/23 05:13 Glucose 94 mg/dL (65-115) 05/11/23 05:13 POC Glucose 90 mg/dL (70-110) 05/11/23 06:38 Calculated Osmolality 304 mOsm/kg (285-295) H 05/11/23 05:13 Lactic Acid 2.5 mmol/L (0.5-2.2) H 05/03/23 19:20 Lactic Acid (Sepsis) 1.4 mmol/L (0.5-2.2) 05/03/23 02:14 Calcium 7.8 mg/dL (8.5-10.5) L 05/11/23 05:13 Phosphorus 3.6 mg/dL (2.5-4.5) 05/11/23 05:13 Magnesium 2.0 mg/dL (1.7-2.3) 05/11/23 05:13 Total Bilirubin 0.3 mg/dL (0.15-1.2) 05/11/23 05:13 AST 27 U/L (0-32) 05/11/23 05:13 ALT 15 U/L (0-33) 05/11/23 05:13 Alkaline Phosphatase 108 U/L (35-105) H 05/11/23 05:13 Creatine Kinase 990 U/L (26-192) H* 05/05/23 02:08 Troponin T Baseline 228 ng/L (0-10) H* 05/03/23 19:20 Troponin T 120 Minute 219.2 ng/L (0-10) H 05/03/23 22:03 Delta Troponin T -8.8 ABS# (0-10) L 05/03/23 22:03 Troponin T Hi Sens 6Hr 236.2 ng/L (0-10) H 05/04/23 02:14 Troponin T Hi Sens 6Hr Delta 8.2 ng/L (0-12) 05/04/23 02:14 NT-Pro-B Natriuret Pep 70195 pg/mL (0-125) H 05/07/23 02:56 Total Protein 4.1 g/dL (6.6-8.7) L 05/11/23 05:13 Albumin 1.9 g/dL (3.5-5.2) L 05/11/23 05:13 Globulin 2.2 g/dL (1.3-4.6) 05/11/23 05:13 Procalcitonin 0.40 ng/mL (0-0.5) 05/07/23 02:56 Urine Color Yellow (Yellow) 05/03/23 19:40 Urine Appearance Clear (CLEAR) 05/03/23 19:40 Urine pH 5 (5-7) 05/03/23 19:40 Ur Specific [place] 1.020 (1.005-1.030) 05/03/23 19:40 Urine Protein Trace (Negative) 05/03/23 19:40 Urine Glucose (UA) Norm (Normal) 05/03/23 19:40 Urine Ketones Negative (Negative) 05/03/23 19:40 Urine Blood Neg (Negative) 05/03/23 19:40 Urine Nitrate Negative (Negative) 05/03/23 19:40 Urine Bilirubin 1+ (Negative) H 05/03/23 19:40 Urine Urobilinogen 1 mg/dL (Negative) H 05/03/23 19:40 Ur Leukocyte Esterase Trace (Negative) H 05/03/23 19:40 Urine RBC 0-4 /hpf (0-2) H 05/03/23 19:40 Urine WBC 5-10 /hpf (0-5) H 05/03/23 19:40 Ur Squamous Epith Cells 0-4 /hpf (0-5) H 05/03/23 19:40 Amorphous Sediment Not Reportable 05/03/23 19:40 Urine Bacteria Trace /hpf (NONE) 05/03/23 19:40 Hyaline Casts 0-4 /lpf H 05/03/23 19:40 Urine Mucus 1+ /hpf 05/03/23 19:40 Vancomycin Trough 9.0 ug/mL (10-15) L 05/08/23 12:01 Urine Opiates Screen Negative ng/mL (Negative) 05/03/23 19:40 Ur Barbiturates Screen Negative ng/mL (Negative) 05/03/23 19:40 Ur Phencyclidine Scrn Negative ng/mL (Negative) 05/03/23 19:40 Ur Amphetamines Screen Negative ng/mL (Negative) 05/03/23 19:40 U Benzodiazepines Scrn Negative ng/mL (Negative) 05/03/23 19:40 Urine Cocaine Screen Negative ng/mL (Negative) 05/03/23 19:40 U Marijuana (THC) Screen Negative ng/mL (Negative) 05/03/23 19:40 MRSA (PCR) Not detected (NOT DETECTED) 05/06/23 19:31 Vitals Last Vital Signs Temp 97.0 F L 05/11/23 08:00 Pulse 94 05/11/23 08:00 Resp 20 H 05/11/23 08:00 BP 94/53 05/11/23 08:00 Pulse Ox 95 05/11/23 08:00 O2 Del Method Room Air 05/11/23 08:00 O2 Flow Rate 3 05/04/23 12:00 Discharge Plan Discharge Patient Disposition: Xfer SNF Condition: Stable Prescriptions: New clopidogrel 75 mg Tablet 75 mg PO DAILY 30 Days Qty: 30 0RF metoprolol tartrate 25 mg Tablet 12.5 mg PO BID@0900,2100 30 Days Qty: 15 0RF doxycycline monohydrate 100 mg Tablet 100 mg PO BID 7 Days Qty: 14 0RF Eliquis DVT-PE Treat 30D Start 5 mg (74 tabs) tablets,dose pack See Rx Instructions .ROUTE .COMPLEX Qty: 74 0RF Rx Instructions: orally per package directions fluconazole [Diflucan] 100 mg tablet 100 mg PO DAILY 5 Days Qty: 5 0RF Continued albuterol sulfate 90 mcg/actuation HFA aerosol inhaler 1 puff INHALATION QID PRN (Reason: Shortness Of Breath) fluticasone propionate 50 mcg/actuation spray,suspension 1 spray INTRANASAL BID PRN (Reason: Nasal Congestion) atorvastatin 40 mg tablet 40 mg PO DAILY Qty: 60 3RF Discontinued aspirin [Chhaya Low Dose Aspirin] 81 mg tablet,delayed release (DR/EC) 81 mg PO DAILY Qty: 90 4RF amlodipine 5 mg tablet 5 mg PO DAILY Qty: 30 3RF lisinopril 10 mg tablet 5 mg PO DAILY Qty: 30 2RF Discharge Orders: Discharge Order (Routine); Ordered 10/25/23 Ordered By: Howard Ross Referrals: [facility] [Outside] Javier,JUDY Callahan [Primary Care Provider] - Discharge Diet: As Directed Discharge Activity: Resume usual activity Patient Instructions: Opioid Safety Activity Restrictions/Additional Instructions: - Please follow-up with Dr. Devlin in 2 weeks -For your sacral deep tissue injury, keep offloading, keep area clean and dry, wound care, doxycycline -For your right lower extremity DVT, please take Eliquis -Please recheck kidney function tomorrow -Please hydrate well, drink plenty of electrolyte balanced fluids -Aspiration precautions, dysphagia level 4 diet, extremely thick/pur?ed Discharge Attestations Time Spent in Discharge Care*: greater than 30 min Quality Metrics Clinical Quality Measures [ No reported AMI, CVA or VTE this stay] Coding Level of Care Code 14038 Total time (in minutes) for Discharge: 45 Diagnoses Sepsis A41.9; R65.20; N17.0 Sepsis type: sepsis due to unspecified organism Sepsis acute organ dysfunction status: with acute organ dysfunction Severe sepsis acute organ dysfunction type: acute renal failure Acute renal failure type: with acute tubular necrosis Severe sepsis shock status: without septic shock Hypotension I95.9 Acute renal failure N17.9 Polycythemia vera D45 Thrombocytosis D75.839 Cellulitis L03.90 Right leg swelling M79.89
--- NOTE | 2023-05-11 11:36 | PC.SOCIAL ---
IMM Update pg 2 of IMM updated and reviewed w/ patient. Copy provided and copy dated, initialed and placed in chart.
[2023-05-11] MEDS: morphine 4 mg/mL SDV 1 mL 1 MG IVP (12:06)
[2023-05-11 12:10] LABS: Glucose Point of Care 113 mg/dL (70-110)
[2023-05-11 12:32] LABS: SARS Covid-2 Antigen negative (Negative)
--- NOTE | 2023-05-11 13:59 | PC.NURSE ---
This nurse called report to [facility] and spoke to Mis and updated on patients current status and wound care needs.
--- NOTE | 2023-05-11 14:20 | PM.CONSULT ---
Providers/Reason For Consult Consulting Physician/Specialty*: Ava Arnold, FILM OR VIDEOTAPE EDITOR-BC/ Wound Care Reason for Consult*: Pressure ulcer Stage 3 to bilateral glutes Requesting Physician: Howard Ross MD Attending Physician: Howard Ross MD Primary Care Provider: JUDY Hughes History of Present Illness History of Present Illness Carol Dolan is a 72 year old female who presents today with Stage 3 pressure ulcers to bilateral glutes, right gluteal fold and Right upper leg just inferior of the right gluteal fold. Medical history includes COPD, generalized weakness and bowl and bladder incontinence. She has an indwelling catheter in place. Ms. Dolan reports she is not mobile, which led her to her wounds. She reports she is uncertain of how long the wounds have been present. Assessment of the wounds today revealed adherent slough to the wound beds with mild erythema to the periwounds. The wounds are fairly superficial at this time. There is dark discoloration to the wound beds which appears to be fecal matter. There is some loose epidermis to the periwounds. These wounds appear to be caused by shearing and are lateral in nature. Measurement of the wound bed as a whole is 11.5cmx 22.5cm x 0.1cm. Ms. Dolan reports pain in her gluteal region. No curette debridement. I recommend Medihoney to all wound beds once daily with nickel thick application for enzymatic debridement. The wound may be covered with Alevyn bordered gauze or a silicone bordered gauze. I recommend the dressing be changed PRN if soiled. I recommend the wound be covered unless in the shower. Ms. Dolan is encouraged to offload as much as possible which includes turning every two hours. The most important yet challenging aspect of Ms. Dolan's wound healing will be to keep the area clean and dry at all times, due to bladder and bowel incontinence. I fear this may be the biggest detriment to her wound healing process. Ms. Dolan reports she is being discharged today to [facility]. I recommend she follow up with Wound Care there, where I will see her on Wednesdays of each week. She agreed to this plan of care. I appreciate the opportunity to consult with this patient. Review of Systems Narrative: As per HPI Medications/Allergies Home Medications Medication Instructions Recorded Confirmed Last Taken Type albuterol sulfate 90 mcg/actuation 1 puff inhalation QID PRN 10/04/21 05/04/23 Unknown History aerosol inhaler Shortness Of Breath fluticasone propionate 50 1 spray intranasal BID PRN Nasal 10/04/21 05/04/23 Unknown History mcg/actuation nasal Congestion spray,suspension atorvastatin 40 mg tablet 40 mg PO DAILY #60 tabs 10/05/21 05/04/23 Unknown Rx apixaban 5 mg (74 tabs) tablets in See Rx Instructions PO .COMPLEX 05/11/23 Unknown Rx a dose pack ([employer] DVT-PE Treat #74 ea 30D Start) clopidogrel 75 mg tablet 75 mg PO DAILY 30 days #30 tabs 05/11/23 Unknown Rx doxycycline monohydrate 100 mg 100 mg PO BID 7 days #14 tabs 05/11/23 Unknown Rx tablet fluconazole 100 mg tablet 100 mg PO DAILY 5 days #5 tabs 05/11/23 Unknown Rx (Diflucan) metoprolol tartrate 25 mg tablet 12.5 mg PO BID@0900,2100 30 days 05/11/23 Unknown Rx #15 tabs Allergies Allergy/AdvReac Type Severity Reaction Status Date / Time Penicillins Allergy Unknown Unknown Verified 05/03/23 19:01 aspirin AdvReac Unknown Unknown Verified 05/03/23 19:01 Current Medications Generic Name Dose Route Start Last Admin Trade Name Freq PRN Reason Stop Dose Admin Albuterol/Ipratropium 3 ml 05/07/23 14:00 05/11/23 13:52 Ipratropium-Albuterol 3 Ml Neb INHALATION 3 ml Q6H.RESP KELLEE Administration Apixaban 10 mg 05/10/23 09:00 05/11/23 09:20 Apixaban 5 Mg Tablet PO 10 mg BID@0900,2100 KELLEE Administration Atorvastatin Calcium 40 mg 05/04/23 09:00 05/11/23 09:20 Atorvastatin 40 Mg Tablet PO 40 mg DAILY KELLEE Administration Clopidogrel Bisulfate 75 mg 05/04/23 09:00 05/11/23 09:20 Clopidogrel 75 Mg Tablet PO 75 mg DAILY KELLEE Administration Denture Adhesive 1 applic 05/07/23 18:49 05/07/23 19:26 Fixodent 39 Gm Tube DENTAL 1 applic PRN PRN Administration denture adhesive Doxycycline Monohydrate 100 mg 05/10/23 18:00 05/11/23 09:19 Doxycycline 100 Mg Tablet PO 100 mg BID KELLEE Administration Protocol Fluconazole 100 mg/ N/A 50 mls @ 50 mls/hr 05/10/23 08:45 05/11/23 10:57 IV Infused Q24H KELLEE Infusion Sodium Chloride 1,000 mls @ 75 mls/hr 05/11/23 08:15 05/11/23 09:21 Sodium Chloride 0.9% IV 75 mls/hr .[id number] KELLEE Administration Lanolin 1 applic 05/04/23 18:05 05/04/23 20:08 Lanolin Oint 7 Gm TOPICAL 1 applic PRN PRN Administration DRYNESS Metoprolol Tartrate 12.5 mg 05/05/23 21:00 05/11/23 09:38 Metoprolol Tartrate 25 Mg Tablet PO Not Given BID@0900,2100 KELLEE Morphine Sulfate 1 mg 05/10/23 10:46 05/11/23 12:06 Morphine 4 Mg/Ml Sdv 1 Ml IVP 1 mg Q4H PRN Administration SEVERE PAIN Ondansetron HCl 4 mg 05/03/23 23:34 05/09/23 23:36 Ondansetron 2 Mg/Ml Sdv 2 Ml IVP 4 mg Q8H PRN Administration vomiting, or N/V if npo Pantoprazole Sodium 40 mg 05/04/23 18:00 05/11/23 09:[address] 40 Mg Tablet PO 40 mg BID KELLEE Administration PFSH Acute PFSH: Medical History COPD (chronic obstructive pulmonary disease) CVA (cerebral vascular accident) HTN (hypertension) Leukocytosis Polycythemia vera Sleep apnea Surgical History No pertinent past surgical history Family History Father Hyperlipidemia Mother Hypertension Other Chronic kidney disease (CKD) No significant family history Denies family history of Diabetes CAD (coronary artery disease) Clotting disorder Dementia Psychiatric illness Suicide Anesthesia complication Bleeding disorder Lung disease Cancer Stroke Social History Smoking and tobacco/nicotine status: current every day tobacco/nicotine user (varies) Alcohol intake: never Substance/Drug Use: never Lives independently: Yes Vitals/I&O/Wt Last Vital Signs Temp 97.0 F L 05/11/23 13:13 Pulse 91 05/11/23 13:52 Resp 16 05/11/23 13:52 BP 108/63 05/11/23 13:13 Pulse Ox 96 05/11/23 13:52 O2 Del Method Room Air 05/11/23 13:52 O2 Flow Rate 3 05/04/23 12:00 05/10/23 05/11/23 05/11/23 22:59 06:59 14:59 Intake Total 720 / 1490 1590 / 1590 Output Total 200 / 200 Balance 720 / 1490 -200 / 1290 1590 / 1590 Physical Exam Const: COMMON NORMALS: no acute distress and patient oriented x3 Resp: COMMON NORMALS: normal respiratory effort, No retractions, No use of accessory muscles and clear to auscultation bilaterally AUSCULTATION: clear to auscultation bilaterally Cardio: COMMON NORMALS: regular rate, regular rhythm, S1 normal heart sound present and S2 normal heart sound present RATE: regular rate RHYTHM: regular rhythm HEART SOUNDS: S1 normal heart sound present and S2 normal heart sound present GI: COMMON NORMALS: Normal to inspection, nondistended, normoactive bowel sounds present and non-tender Extremity: COMMON NORMALS: no pedal edema Neuro: COMMON NORMALS: patient oriented x3 Psych: COMMON NORMALS: mental status grossly normal Urinary Catheter Management: Haskins: Cath Placed During This Visit: yes Reason for Continuing Indwelling Catheter: Assist healing open wound Urinary Catheter Date of Insertion: 05/04/23 Urinary Catheter Time of Insertion: 03:00 Data 05/11/23 05:13 05/11/23 05:13 Micro: Microbiology 05/06/23 16:00 Legionella Urinary Antigen - Final Urine Catheterized Urine Culture - Final Allie tropicalis A&P Assessment and plan (1) Pressure ulcer of right buttock, stage 3: Adherent slough to the wound bed of right glute: Daily dressing changes: Cleanse with saline. Apply Medihoney applied nickel thick. Cover with Alevyn bordered gauze or silicone bordered gauze. Change dressing PRN if soiled. Keep covered unless in the shower. (2) Pressure ulcer of left buttock, stage 3: Adherent slough to the wound bed of left glute: Daily dressing changes: Cleanse with saline. Apply Medihoney applied nickel thick. Cover with Alevyn bordered gauze or silicone bordered gauze. Change dressing PRN if soiled. Keep covered unless in the shower. Consult Attestations Time Spent in Patient Care: 16 - 35 minutes (>than 50% of time spent in counselling and/or direct pt care on unit). 30 minutes Coding Level of Care Code 87517 Diagnoses Pressure ulcer of right buttock, stage 3 L89.313 Pressure ulcer of left buttock, stage 3 L89.323 Time Spent (min) 30
--- NOTE | 2023-05-11 14:27 | PC.NURSE ---
This nurse removed patient's PICC before discharging.
== END 2023-05-11 14:26 | disposition skilled nursing facility (03) | DRG 871 ==
LOC: ER 19:22 → CSU 21:28 → ICU 05-04 16:36 → MEDSURG 05-08 14:18
PROVIDERS: Student in an Organized Health Care Education/Training Program; Admitting Provider Internal Medicine; Emergency Provider Internal Medicine; PCP Nurse Practitioner Family; Visit Provider Family Medicine
DX: A41.9 Sepsis, unspecified organism (principal); I21.A1 Myocardial infarction type 2; L89.323 Pressure ulcer of left buttock, stage 3; L89.313 Pressure ulcer of right buttock, stage 3; R65.21 Severe sepsis with septic shock; N17.0 Acute kidney failure with tubular necrosis; J69.0 Pneumonitis due to inhalation of food and vomit; I26.99 Other pulmonary embolism without acute cor pulmonale; L03.115 Cellulitis of right lower limb; E46 Unspecified protein-calorie malnutrition; E87.0 Hyperosmolality and hypernatremia; M62.82 Rhabdomyolysis; N39.0 Urinary tract infection, site not specified; I82.411 Acute embolism and thrombosis of right femoral vein; I82.441 Acute embolism and thrombosis of right tibial vein; I82.451 Acute embolism and thrombosis of right peroneal vein; I82.492 Acute embolism and thrombosis of other specified deep vein of left lower extremity; D75.839 Thrombocytosis, unspecified; J44.9 Chronic obstructive pulmonary disease, unspecified; R15.9 Full incontinence of feces; R32 Unspecified urinary incontinence; Z79.02 Long term (current) use of antithrombotics/antiplatelets; Z86.73 Personal history of transient ischemic attack (TIA), and cerebral infarction without residual deficits; I12.9 Hypertensive chronic kidney disease with stage 1 through stage 4 chronic kidney disease, or unspecified chronic kidney disease; N18.9 Chronic kidney disease, unspecified; D45 Polycythemia vera; G47.30 Sleep apnea, unspecified; F17.200 Nicotine dependence, unspecified, uncomplicated; R13.10 Dysphagia, unspecified; Z68.32 Body mass index [BMI] 32.0-32.9, adult; E86.0 Dehydration
CPT/HCPCS: 36415; 36416; 36573; 36592; 51701; 51702; 70450; 71045; 71250; 73501; 74176; 74230; 80053; 80202; 80306; 81001; 82550; 82962; 83605; 83735; 83880; 84100; 84132; 84145; 84484; 85025; 85730; 87040; 87086; 87426; 87449; 87641; 92523; 92526; 92610; 92611; 93005; 93306; 93970; 94640; 94762; 96365; 96372; 96376; 97110; 97161; 97167; 97530; 99252; 99285; J0456; J0692; J1450; J1644; J1650; J1815; J1956; J2185; J2270; J2405; J3370; J3490; J7030; J7050; J7070; P9047

== ENCOUNTER 2023-06-06 09:31 | Emergency (ER) | payer MEDICARE, MEDICAID, SELFPAY ==
[2023-06-06] VITALS (11 sets, daily range): BP systolic 94–127; BP diastolic 48–66; PULSE 90–105; RESP 16–24; TEMP 36.7; O2SAT 95–99; BMI 27.3
--- NOTE | 2023-06-06 09:45 | ED_ITS ---
HPI - Abdominal Pain 2 General: Chief Complaint: Abdominal Pain Stated Complaint: Pos hemocult Time Seen by Provider: 06/06/23 09:33 Source: patient Mode of arrival: EMS History of Present Illness: 72-year-old female who presents to the e mergency room from the senior living with report of Hemoccult positive stool and coffee-ground emesis vomitus overnight. Patient is a Elise lift pad underneath her and has healed But She Also Says That She Recently Sprained Her Left Ankle Trying to Stand. She Says She Has Not Been Able to Walk for the Last Couple of Weeks. Shortly after Arrival Here She Had a Large Bowel Movement That Was Hemocculted. She Also Has a Haskins in Place. No reports of fever sweats chills patient is on Eliquis and Plavix. She is also complaining of mild abdominal pain. She has a history of chronic leukocytosis and polycythemia vera. She has a rash on her extremities that has been present for several weeks as well. According to notes from a recent hospitalization she has decubiti ulcer as well. MD elicited complaint: abdominal pain Onset (ago): hour(s) Associated Symptoms: Denies chills, dysuria and fever(s) Review of Systems 2 Const: Denies: fever(s) or chills Card: Denies: chest pain Resp: Denies: dyspnea GI: Denies: abdominal pain : Denies: dysuria, urinary frequency or urinary urgency Musc: Denies: neck pain or back pain Skin/Breast: Denies: rash PFSH ED 2 PFSH: Medical History COPD (chronic obstructive pulmonary disease) CVA (cerebral vascular accident) HTN (hypertension) Leukocytosis Polycythemia vera Sleep apnea Surgical History No pertinent past surgical history Family History Father Hyperlipidemia Mother Hypertension Other Chronic kidney disease (CKD) No significant family history Denies family history of Diabetes CAD (coronary artery disease) Clotting disorder Dementia Psychiatric illness Suicide Anesthesia complication Bleeding disorder Lung disease Cancer Stroke Social History Smoking and tobacco/nicotine status: current every day tobacco/nicotine user (varies) Alcohol intake: never Substance/Drug Use: never Lives independently: Yes Physical Exam 2 Const: COMMON NORMALS: no acute distress GENERAL APPEARANCE: cooperative and comfortable ORIENTATION/CONSCIOUSNESS: Yes awake, Yes oriented to person, Yes oriented to place and Yes oriented to time HENMT: COMMON NORMALS: normocephalic, atraumatic and hearing grossly normal bilaterally HEAD & SCALP: normocephalic and atraumatic Resp: COMMON NORMALS: normal respiratory effort, No retractions, No use of accessory muscles and clear to auscultation bilaterally AUSCULTATION: clear to auscultation bilaterally Cardio: COMMON NORMALS: regular rate, regular rhythm and No murmurs present (Cardio) RATE: regular rate RHYTHM: regular rhythm GI: COMMON NORMALS: Soft to palpation and No hepatosplenomegaly present A USCULTATION: Yes normoactive bowel sounds PALPATION: Yes Soft to palpation, No Tenderness to palpation present (GI), No Guarding due to palpation present (GI) and Yes No hepatosplenomegaly present Extremity: COMMON NORMALS: normal to inspection, capillary refill normal, no clubbing, cyanosis or edema, no calf tenderness and no pedal edema Neuro: SENSORIUM/ORIENTATION: Yes oriented to person, Yes oriented to place and Yes oriented to time Skin: COMMON NORMALS: no rashes or lesions noted GENERAL SKIN EXAM: no rashes or lesions noted Course 2 Vital Signs: Vital signs: Vital Signs Temperature 98.1 F 06/06/23 09:33 Pulse Rate 102 H 06/06/23 16:56 Respiratory Rate 24 H 06/06/23 16:56 Blood Pressure 102/55 06/06/23 16:56 Pulse Oximetry 96 06/06/23 16:56 Oxygen Delivery Me thod Room Air 06/06/23 12:55 Oxygen Flow Rate 2 06/06/23 09:33 MDM - Abdominal Pain Medical Decision Making Patient presents with an upper GI bleed that evidence of acute renal failure and acute renal hematoma hyperkalemia and DIC. Discussed with Dr. Manasa Goff who are listed on her chart from the senior living. Also discussed with family. At this point patient's condition is critical I state that she is a Do Not Recussitate. Recommend to return back to the senior living for hospice care. Medical Records I reviewed the patient's medical records. Lab Data I reviewed the patient's lab results. 06/06/23 10:02 06/06/23 10:02 Labs/Radiology: Radiology Impressions Chest X-Ray 06/06/23 10:02 IMPRESSION: No acute findings. Laboratory Results WBC 43.87 10^3/uL (3.29-11.43) H* 06/06/23 10:02 RBC 3.88 10^6/uL (3.85-5.65) 06/06/23 10:02 Hgb 8.90 g/dL (11.27-16.99) L 06/06/23 10:02 Hct 29.8 % (36-47) L 06/06/23 10:02 MCV 76.8 fl (85-98) L 06/06/23 10:02 MCH 22.9 pg (27-33) L 06/06/23 10:02 MCHC 29.9 g/dL (30-55) L 06/06/23 10:02 RDW 27.9 % (12.1-15.1) H 06/06/23 10:02 Plt Count 964 10^3/cmm (157-399) H 06/06/23 10:02 MPV 8.9 fL (7.4-10.4) 06/06/23 10:02 Neut % (Auto) 81.9 % 06/06/23 10:02 Lymph % (Auto) 4.6 % 06/06/23 10:02 Emmet % (Auto) 2.4 % 06/06/23 10:02 Eos % (Auto) 7.7 % 06/06/23 10:02 Baso % (Auto) 0.4 % 06/06/23 10:02 Neut # (Auto) 35.91 10^3/uL (1.8-7.7) H 06/06/23 10:02 Lymph # (Auto) 2.0 10^3/uL (0.8-4.8) 06/06/23 10:02 Emmet # (Auto) 1.1 10^3/uL (0.2-0.9) H 06/06/23 10:02 Eos # (Auto) 3.4 10^3/uL (0.0-0.8) H 06/06/23 10:02 Baso # (Auto) 0.2 10^3/uL (0.0-0.1) H 06/06/23 10:02 Nucleated RBC % (auto) 0.1 % 06/06/23 10:02 Nucleated RBCs # 0.1 /100WBC 06/06/23 10:02 PT 46.90 SECONDS (12.1-14.9) H 06/06/23 10:02 INR 4.80 (0.8-1.2) H 06/06/23 10:02 APTT 56.3 SECONDS (23.9-36.7) H 06/06/23 10:02 Fibrinogen 527 mg/dL (174-498) H 06/06/23 10:02 Sodium 143 mmol/L (136-145) 06/06/23 10:02 Potassium 6.4 mmol/L (3.5-5.1) H 06/06/23 10:02 Chloride 112 mmol/L (98-107) H 06/06/23 10:02 Carbon Dioxide 13 mmol/L (22-29) L 06/06/23 10:02 Anion Gap 24.4 (5-19) H 06/06/23 10:02 BUN 147 mg/dL (8-23) H* D 06/06/23 10:02 Creatinine 9.9 mg/dL (0.5-0.9) H* 06/06/23 10:02 GFR Calculation Not Reportable 06/06/23 10:02 Glucose 95 mg/dL (65-115) 06/06/23 10:02 Calculated Osmolality 344 mOsm/kg (285-295) H 06/06/23 10:02 Calcium 8.5 mg/dL (8.5-10.5) 06/06/23 10:02 Total Bilirubin 0.3 mg/dL (0.15-1.2) 06/06/23 10:02 AST 12 U/L (0-32) 06/06/23 10:02 ALT 9 U/L (0-33) 06/06/23 10:02 Alkaline Phosphatase 190 U/L (35-105) H 06/06/23 10:02 Total Protein 5.8 g/dL (6.6-8.7) L 06/06/23 10:02 Albumin 1.9 g/dL (3.5-5.2) L 06/06/23 10:02 Globulin 3.9 g/dL (1.3-4.6) 06/06/23 10:02 Urine Color Yellow (Yellow) 06/06/23 11:08 Urine Appearance Cloudy (CLEAR) A 06/06/23 11:08 Urine pH 5 (5-7) 06/06/23 11:08 Ur Specific [place] 1.015 (1.005-1.030) 06/06/23 11:08 Urine Protein 2+ (Negative) H 06/06/23 11:08 Urine Glucose (UA) Norm (Normal) 06/06/23 11:08 Urine Ketones 1+ (Negative) H 06/06/23 11:08 Urine Blood 3+ (Negative) H 06/06/23 11:08 Urine Nitrate Negative (Negative) 06/06/23 11:08 Urine Bilirubin Neg (Negative) 06/06/23 11:08 Urine Urobilinogen Norm mg/dL (Negative) 06/06/23 11:08 Ur Leukocyte Esterase 2+ (Negative) H 06/06/23 11:08 Urine RBC 25-40 /hpf (0-2) H 06/06/23 11:08 Urine WBC Too numerous to cnt /hpf (0-5) H 06/06/23 11:08 Ur Squamous Epith Cells 0-4 /hpf (0-5) H 06/06/23 11:08 Ur Transition Epith Cell 0-4 /hpf 06/06/23 11:08 Calcium Oxalate Crystal 5-10 /hpf H 06/06/23 11:08 Amorphous Sediment Not Reportable 06/06/23 11:08 Urine Bacteria 3+ /hpf (NONE) H 06/06/23 11:08 Urine Mucus 2+ /hpf 06/06/23 11:08 Blood Type O Positive 06/06/23 10:49 Rho(D) Type Rh positive 06/06/23 10:49 Antibody Screen Negative 06/06/23 10:49 All radiology interpretation(s) finalized by discharge Discharge Plan Discharge Patient Disposition: Home Clinical Impression: Acute upper GI bleed, Acute renal failure, Pressure ulcer of right buttock, stage 3, Pressure ulcer of left buttock, stage 3, Anemia, Acute hyperkalemia, DIC (disseminated intravascular coagulation), Renal hematoma, left Condition: Stable Prescriptions: New morphine concentrate 100 mg/5 mL (20 mg/mL) Solution 20 mg sublingual DIRECTED MDD N/A PRN (Reason: Pain/SOB) 14 Days Qty: 30 0RF Rx Instructions: 0.25ml-1ml q1H PRN may increase to 0.5ml-1ml Q1H PRN Dulcolax (bisacodyl) 10 mg Suppository 10 mg MO DAILY PRN (Reason: Constipation) Qty: 5 0RF Rx Instructions: 1 suppository per rectum every day PRN for constipation. atropine 1 % Drops 4 drp sublingual Q4H PRN (Reason: Secretions) Qty: 5 0RF Rx Instructions: 4 drops SL q 4 hours PRN for terminal congestion/excessive secretions. ondansetron 4 mg Tablet,Disintegrating 4 mg translingual Q4H PRN (Reason: Nausea) Qty: 5 0RF Rx Instructions: Dissolve 1 tablet under tongue every 4 hours PRN for nausea lorazepam 2 mg/mL Concentrate 2 mg sublingual Q4H PRN (Reason: Anxiety/Seizure) Qty: 30 0RF Rx Instructions: 0.25ml-1ml q4H PRN Anxiety/Seizure Start 0.25ml may increase to 0.5ml-1ml q4H Discontinued ondansetron HCl 4 mg tablet 4 mg PO Q4H PRN (Reason: Nausea And Vomiting) albuterol sulfate 90 mcg/actuation HFA aerosol inhaler 2 puff INHALATION Q6H PRN (Reason: Shortness Of Breath) fluticasone propionate 50 mcg/actuation spray,suspension 1 spray INTRANASAL Q12H PRN (Reason: Allergy Symptoms) 27 mg iron- 0.8 mg Tablet 1 tab PO DAILY@08 magnesium hydroxide [Milk of Magnesia] 400 mg/5 mL Suspension 30 ml PO DAILY PRN (Reason: Constipation) bisacodyl [Dulcolax (bisacodyl)] 10 mg Suppository 10 mg MO DAILY PRN (Reason: Constipation) Eliquis 5 mg Tablet 5 mg PO BID@08,20 atorvastatin 40 mg tablet 40 mg PO BEDTIME@20 clopidogrel 75 mg tablet 75 mg PO DAILY@08 metoprolol tartrate 25 mg tablet 25 mg PO BID@08,20 Rx Instructions: hold for sbp less than 100 or pulse less than 60 No Action acetaminophen 325 mg capsule 650 mg PO Q4H PRN (Reason: Pain) Maalox MS Multi Symptom 400-400-40 mg/5 mL Suspension 30 ml PO Q4H PRN (Reason: Indigestion) Discharge Orders: Discharge ED (Routine); Ordered 06/06/23 Ordered By: Abilio Ortiz Referrals: Sindy Javier FNP [Primary Care Provider] - Patient Instructions: Opioid Safety, Pain Management Activity Restrictions/Additional Instructions: You are seen in the emergency room today with concerns for an upper GI bleed. Laboratory studies do show there is an upper GI bleed. You also have acute renal failure with hyperkalemia, left renal hematoma, signs of DIC and hyperkalemia as well as leukocytosis. Given these multiple medical problems and her complicated medical history after consultation with Dr. So and Dr. Santos who see you in the senior living as well as your son who is listed as your primary contact we recommend comfort cares at the senior living. Stop all of your current medications and use the comfort care medications prescribed at the time of discharge today. Coding Level of Care Code ED Checker for Delia Goodson
--- NOTE | 2023-06-06 10:02 | ECG_ITS ---
[facility] Test Date: 2023-06-06 Pat Name: Carol Dolan Department: Room: Gender: Female Social Service Liaison: : 1950 Requested By: Abilio Ireland Order Number: [id number] Reading MD: Ligia Andrade M.D. Measurements Intervals [place] Rate: 88 P: 48 WA: 149 QRS: 36 QRSD: 93 T: 88 QT: 370 QTc: 449 Interpretive Statements SINUS RHYTHM NONSPECIFIC T-WAVE ABNORMALITY Compared to ECG 05/04/2023 01:14:36 No significant changes Electronically Signed On 06-06-2023 14:42:14 USER INTERFACE DEVELOPER by Ligia Andrade M.D. [id number]
--- NOTE | 2023-06-06 10:02 | CT_ITS ---
WS: [id number] CT ABDOMEN AND PELVIS NONCONTRAST HISTORY: Coffee-ground emesis TECHNIQUE: Imaging performed through the abdomen and pelvis. Coronal and sagittal reformats are submi tted. All CT scans at [facility] use at least one of these dose optimization techniques: auto mated exposure control; mA and/or kV adjustment per patient size (includes targeted exams where dose is matched to clinical indication); or iterative reconstruction. DLP: 598.47 mGy.cm COMPARISON: 05/04/2023 Lower thorax: Mass recently described at the anterior RIGHT lung base is not identified on today's st udy. May've resolved or be obscured by the motion artifact. There are dependent changes bilaterally a t the lung bases. Small amount of atelectasis at the RIGHT lung base. Small hiatal hernia. Liver: Normal size liver. No mass or bile duct dilatation. Gallbladder: Normal gallbladder. No pericholecystic fluid or cholelithiasis. No gallbladder wall thic kening. Pancreas: Atrophied. Spleen: Granulomata. Normal size. Adrenal glands: Normal. No mass. Right kidney: Normal size kidney with no mass or hydronephrosis. Left kidney: Normal size LEFT kidney. There is an area of increased attenuation along the posterior L EFT kidney extending over a length of 7.8 cm. Area of increased density in a subcapsular location wit h a transverse diameter of 3.6 in AP diameter of 1.8 cm. No obstruction. Aorta: Mild atherosclerosis abdominal aorta with no aneurysm. No free fluid, intraperitoneal air or significant lymphadenopathy. GI tract: No obstruction. Reidentified is mild thickening of the sigmoid wall with adjacent diverticu la. Better visualized and described on 05/04/2023 as there was less motion artifact. Abdominal wall: Diffuse soft tissue anasarca. Pelvis: No free fluid. Nondistended urinary bladder. There is a Haskins catheter present. Osseous structures: Advanced degenerative disc disease in the lumbar spine. No destructive bone lesio ns. IMPRESSION: 1. Moderate size subcapsular area of increased density as compared to the adjacent LEFT renal parenc hyma. Consistent with a subcapsular hematoma. Hematoma extends over a length of 7.8 cm x 3.6 cm trans verse and 1.8 cm anterior posterior. New since 05/04/2023. 2. Reidentified is sigmoid wall thickening and adjacent diverticula. Colonoscopy was recommended on the prior study to exclude neoplasm. There is no obstruction. 3. Diffuse soft tissue anasarca. 4. Haskins catheter in good position.
--- NOTE | 2023-06-06 10:02 | XRR_ITS ---
PROCEDURE INFORMATION: Exam: XR Chest Exam date and time: 06/06/2023 10:10 AM Age: 72 years old Clinical indication: Cough and dyspnea; Additional info: Dyspnea/cough TECHNIQUE: Imaging protocol: Radiologic exam of the chest. Views: 1 view. COMPARISON: CR (CHEST, ) 05/07/2023 5:38 AM FINDINGS: Lungs: Unremarkable. No consolidation. Pleural spaces: Unremarkable. No pleural effusion. No pneumothorax. Heart/Mediastinum: Unremarkable. No cardiomegaly. Bones/joints: Unremarkable. XR/XR chest 1V portable [id number] IMPRESSION: No acute findings.
[2023-06-06 10:35] LABS: Basophils # 0.2 10^3/uL (0.0-0.1); Basophils % 0.4 %; Eosinophils # 3.4 10^3/uL (0.0-0.8); Eosinophils % 7.7 %; Hematocrit 29.8 % (36-47); Lymphocytes % 4.6 %; Mean Corpuscular HGB Conc 29.9 g/dL (30-55); Mean Corpuscular Hemoglobin 22.9 pg (27-33); Mean Corpuscular Volume 76.8 fl (85-98); Mean Platelet Volume 8.9 fL (7.4-10.4); Monocytes # 1.1 10^3/uL (0.2-0.9); Monocytes % 2.4 %; Neutrophils # 35.91 10^3/uL (1.8-7.7); Neutrophils % 81.9 %; Nucleated Red Blood Cells # 0.1 /100WBC; Nucleated Red Blood Cells % 0.1 %; Platelet Count 964 10^3/cmm (157-399); Red Blood Count 3.88 10^6/uL (3.85-5.65); Red Cell Distribution Width 27.9 % (12.1-15.1)
--- NOTE | 2023-06-06 10:46 | PC.NURSE ---
pericare provided for patient, stool sample taken. bedsores noted near sacrum bilaterally. physician noted and assessed. heel cushions on patient. rash noted on full length of bilateral legs and arms.
[2023-06-06 11:01] LABS: Alanine Aminotransferase 9 U/L (0-33); Albumin Level 1.9 g/dL (3.5-5.2); Alkaline Phosphatase 190 U/L (35-105); Anion Gap 24.4 (5-19); Aspartate Amino Transferase 12 U/L (0-32); Calcium 8.5 mg/dL (8.5-10.5); Carbon Dioxide 13 mmol/L (22-29); Chloride 112 mmol/L (98-107); Globulin 3.9 g/dL (1.3-4.6); Glucose 95 mg/dL (65-115); Potassium 6.4 mmol/L (3.5-5.1); Sodium 143 mmol/L (136-145); Total Bilirubin 0.3 mg/dL (0.15-1.2); Total Protein 5.8 g/dL (6.6-8.7)
--- NOTE | 2023-06-06 11:02 | PC.PHAR ---
pt is from [facility] nurse from [facility] states the pt had no am meds today
[2023-06-06 11:16] LABS: Blood Urea Nitrogen 147 mg/dL (8-23); Osmolality Calculated 344 mOsm/kg (285-295)
[2023-06-06 11:20] LABS: Partial Thromboplastin Time 56.3 SECONDS (23.9-36.7)
[2023-06-06 11:36] LABS: White Blood Count 43.87 10^3/uL (3.29-11.43)
[2023-06-06 11:42] LABS: Glucose Urine UA Norm (Normal); Protein Urine 2+ (Negative); Specific Gravity, Urine 1.015 (1.005-1.030); Urine Appearance Cloudy (CLEAR); Urine Color Yellow (Yellow); pH Urine 5 (5-7)
[2023-06-06 11:43] LABS: Add Urine Microscopic? YES; Bilirubin Urine Neg (Negative); Blood Urine 3+ (Negative); Ketones Urine 1+ (Negative); Leukocyte Esterase Urine 2+ (Negative); Nitrate Urine Negative (Negative); Urobilinogen Urine Norm (Negative)
[2023-06-06 11:46] LABS: Fibrinogen 527 mg/dL (174-498)
[2023-06-06] MEDS: pantoprazole 40 mg SDV 80 MG IVP (11:47)
[2023-06-06] MEDS: calcium chloride 10% Syr 10 mL 1 GM IVP (11:51)
[2023-06-06 11:52] LABS: Bacteria Urine 3+ /hpf; Mucus Urine 2+ /hpf; RBC Urine 25-40 /hpf (0-2); Squamous Epithelial Cell Urine 0-4 /hpf (0-5); Transitional Epi Cells Urine 0-4 /hpf; WBC Urine TOO NUMEROUS TO CNT /hpf (0-5)
[2023-06-06 11:53] LABS: Add Urine Culture? Yes
[2023-06-06] MEDS: sodium bicarbonate 8.4% 1 mEq/mL 50mL Syr 100 MEQ IVP (11:55)
[2023-06-06] MEDS: albuterol 2.5 mg/3 mL Neb 10 MG INHALATION (12:54)
--- NOTE | 2023-06-06 13:02 | PM.CONSULT ---
Providers/Reason For Consult Consulting Physician/Specialty*: Lee Santos MD, Hospitalist Reason for Consult*: Medical management Requesting Physician: Dr. Ortiz Primary Care Provider: JUDY Hughes History of Present Illness History of Present Illness Carol Dolan is a 72 year old female nursing facility resident with history of underlying polycythemia rubra vera as well as chronic kidney disease who was recently in the hospital May 03 with non-ST elevation myocardial infarction, DVT and possible pulmonary embolism, rhabdomyolysis, sacral decub. She presented to the emergency department today with GI bleeding. She had had coffee-ground emesis, heme positive stool. She has been declining at the nursing facility and complaining of some abdominal pain. There has not been any notation of fever. In the emergency department, multiple system derangements were noted. Patient herself cannot give me an adequate history. She states she fell and that is why she is in [place]. She reports no pain currently. Review of Systems General: Reports: ROS unobtainable due to mental status Medications/Allergies Home Medications Medication Instructions Recorded Confirmed Last Taken Type acetaminophen 325 mg capsule 650 mg PO Q4H PRN Pain 05/25/23 06/06/23 Unknown History aluminum-mag hydroxide-simethicone 30 ml PO Q4H PRN Indigestion 06/06/23 06/06/23 Unknown History 400 mg-400 mg-40 mg/5 mL oral susp atropine 1 % eye drops 4 drp sublingual Q4H PRN 06/06/23 Unknown Rx Secretions #5 mL bisacodyl 10 mg rectal suppository 10 mg NM DAILY PRN Constipation #5 06/06/23 Unknown Rx (Dulcolax (bisacodyl)) ea lorazepam 2 mg/mL oral concentrate 2 mg sublingual Q4H PRN 06/06/23 Unknown Rx Anxiety/Seizure #30 mL morphine concentrate 100 mg/5 mL 20 mg sublingual DIRECTED PRN 06/06/23 Unknown Rx (20 mg/mL) oral solution Pain/SOB 14 days #30 mL ondansetron 4 mg disintegrating 4 mg translingual Q4H PRN Nausea 06/06/23 Unknown Rx tablet #5 tabs Allergies Allergy/AdvReac Type Severity Reaction Status Date / Time Penicillins Allergy Unknown Unknown Verified 06/06/23 09:32 aspirin AdvReac Unknown Unknown Verified 06/06/23 09:32 PFSH Acute PFSH: Medical History COPD (chronic obstructive pulmonary disease) CVA (cerebral vascular accident) HTN (hypertension) Leukocytosis Polycythemia vera Sleep apnea Surgical History No pertinent past surgical history Family History Father Hyperlipidemia Mother Hypertension Other Chronic kidney disease (CKD) No significant family history Denies family history of Diabetes CAD (coronary artery disease) Clotting disorder Dementia Psychiatric illness Suicide Anesthesia complication Bleeding disorder Lung disease Cancer Stroke Social History Smoking and tobacco/nicotine status: current every day tobacco/nicotine user (varies) Alcohol intake: never Substance/Drug Use: never Lives independently: Yes Vitals/I&O/Wt Last Vital Signs Temp 98.1 F 06/06/23 09:33 Pulse 100 06/06/23 12:55 Resp 18 06/06/23 12:55 BP 94/57 06/06/23 12:55 Pulse Ox 96 06/06/23 12:55 O2 Del Method Room Air 06/06/23 12:55 O2 Flow Rate 2 06/06/23 09:33 Weight last 48 hrs Weight 65.771 kg Physical Exam Narrative: General exam demonstrates a white female, who is conversation is somewhat scattered. She believes she is in [place]. She is aware that Vinay is the president, but is not sure of the year, date, or month. She believes she is being seen directly from home. She appears confused, and certainly does not seem able to's she has currently reason through her medical problem and their implications. HEENT: Atraumatic normocephalic. Little bit of dried blood around oropharynx. Neck is supple no lymphadenopathy thyromegaly Cardiovascular borderline tachycardic, no murmur Lungs bilateral expiratory wheezing Abdomen is slight tenderness epigastric area. No obvious organomegaly exam deferred Extremities 3+ edema. No cyanosis or clubbing Skin: Rash noted, vasculitic in appearance lower extremities Neuro: Confused, but no focal cranial nerve deficits. When left alone she will ramble some with her speech. Data 11/20/23 10:02 06/06/23 10:02 Other Labs: INR is 4.8 LFTs normal with exception of alk phos of 190 Calcium normal, albumin 1.9 Urinalysis with 25-40 reds, too numerous to count whites Chest x-ray by my review no infiltrate Abdominal pelvis CT which I reviewed demonstrates increased density left kidney, possible hematoma that is quite large 7 x 4 cm, thickened sigmoid EKG which I reviewed demonstrates sinus rhythm, nonspecific ST-T wave changes Micro: Microbiology 06/06/23 10:09 Blood Culture - Preliminary Blood SPECIMEN COLLECTED 06/06/23 10:02 Blood Culture - Preliminary Blood SPECIMEN COLLECTED A&P Assessment and plan (1) Acute metabolic encephalopathy: The patient has acute metabolic encephalopathy. She does not have decisional capacity currently. She was allow natural at the nursing facility. The emergency department physician has talked with the son, and it has been decided that it is appropriate to proceed with comfort measures. I concur with this, after visiting with the patient and the son. Outcome is expected to be extremely poor with her severely low albumin, underlying polycythemia rubra vera, immobility, GI bleed, recent DVT unlikely PE, encephalopathy, etc. Comfort measures are appropriate, and I discussed with the emergency department [facility]. Anticoagulants, other medications will be discontinued with the exception of those used for comfort. (2) Acute upper GI bleed: See above (3) Acute hyperkalemia: See above (4) Acute kidney injury: See above (5) Renal hematoma: See above (6) UTI (urinary tract infection): See above (7) Anemia: See above Plan Thank you for this consultation Consult Attestations Medical Necessity Statement: Not applicable Diagnoses Acute metabolic encephalopathy G93.41 Acute upper GI bleed K92.2 Acute hyperkalemia E87.5 Acute kidney injury N17.9 Renal hematoma S37.019A UTI (urinary tract infection) N39.0 Anemia D64.9 Time Spent (min) 68
--- NOTE | 2023-06-06 15:20 | PC.NURSE ---
CALL FROM EVELINA WITH [facility] TO BE AT FACILITY IN 1.5 HOURS FOR TRANSPORT BACK TO [facility].
[2023-06-07 11:20] LABS: Bacillus cereus group Not Detected (NOT DETECT); Bacillus subtillis group Not Detected (NOT DETECT); Corynebacterium Not Detected (NOT DETECT); Cutibacterium acnes (P.acnes) Not Detected (NOT DETECT); Enterococcus Not Detected (NOT DETECT); Enterococcus faecalis Not Detected (NOT DETECT); Enterococcus faecium Not Detected (NOT DETECT); Lactobacillus species Not Detected (NOT DETECT); Listeria Not Detected (NOT DETECT); Listeria monocytogenes Not Detected (NOT DETECT); Micrococcus Not Detected (NOT DETECT); Pan Candida Not Detected (NOT DETECT); Pan Gram-Negative Not Detected (NOT DETECT); Staphylococcus epidermidis Detected (NOT DETECT); Staphylococcus lugdunensis Not Detected (NOT DETECT); Staphylococcus species Detected (NOT DETECT); Streptococcus agalactiae Not Detected (NOT DETECT); Streptococcus anginosus group Not Detected (NOT DETECT); Streptococcus pneumoniae Not Detected (NOT DETECT); Streptococcus pyogenes Not Detected (NOT DETECT); Streptococcus species Not Detected (NOT DETECT); mecA Not Detected (NOT DETECT); mecC Not Detected (NOT DETECT)
== END 2023-06-06 16:58 | disposition home or self-care (01) ==
PROVIDERS: Emergency Provider Family Medicine; PCP Nurse Practitioner Family
DX: K92.2 Gastrointestinal hemorrhage, unspecified (principal); N17.9 Acute kidney failure, unspecified; D64.9 Anemia, unspecified; E87.5 Hyperkalemia; D65 Disseminated intravascular coagulation [defibrination syndrome]; S37.012A Minor contusion of left kidney, initial encounter; L89.323 Pressure ulcer of left buttock, stage 3; L89.313 Pressure ulcer of right buttock, stage 3; Z79.01 Long term (current) use of anticoagulants; Z79.02 Long term (current) use of antithrombotics/antiplatelets; Z72.0 Tobacco use; J44.9 Chronic obstructive pulmonary disease, unspecified; Z86.73 Personal history of transient ischemic attack (TIA), and cerebral infarction without residual deficits; I10 Essential (primary) hypertension; X58.XXXA Exposure to other specified factors, initial encounter
CPT/HCPCS: 36415; 71045; 74176; 80053; 81001; 85025; 85384; 85610; 85730; 86850; 86900; 87040; 87077; 87086; 87150; 87186; 87205; 93005; 93010; 94640; 96374; 96375; 99285; C9113; J3490; J7613